=== PATIENT | male | born 1950 | race Caucasian/White ===

== ENCOUNTER 2017-03-19 12:45 | Emergency (ER) | payer MEDICARE, OTHER, SELFPAY ==
--- NOTE | 2017-03-19 13:15 | EDM.PDOC ---
ED HPI GENERAL MEDICAL PROBLEM - General Chief Complaint: General Stated Complaint: weakness Time Seen by Provider: 03/19/17 13:00 Source of Information: Reports: Patient, Family (sister) History Limitations: Reports: No Limitations - History of Present Illness INITIAL COMMENTS - FREE TEXT/NARRATIVE: States that he gets weak and shakey in his legs on and off since his stroke several years ago. States that he was in the kitchen and legs started to feel weak and he went to sit on the couch and then laid down. His housekeeper supervisor stopped by and called the ambulance. He states that it usually just passes over after a few hours. Has been in previously to be evaluated and nothing is ever found. He didn't take his meds last night as he forgot and hadn't taken them yet today. Currently he states that he feels good. Admits that his legs still feel shakey but doesn't feel that is unusaual. Onset: Gradual Location: Reports: Lower Extremity, Left, Lower Extremity, Right Associated Symptoms: Reports: Weakness - Related Data Allergies Allergy/AdvReac Type Severity Reaction Status Date / Time No Known Allergies Allergy Verified 03/19/17 12:55 Home Meds: Home Meds Brimonidine Tartrate [Alphagan P] 1 drop OP BID 01/11/14 [History] Clopidogrel [Plavix] 75 mg PO DAILY 01/11/14 [History] Cyanocobalamin (Vitamin B-12) [Vitamin B-12] 100 mcg PO DAILY 01/11/14 [History] Dorzolamide HCl/Timolol Maleat [Dorzolamide-Timolol Eye Drops] 1 drop OP BID [History] Latanoprost [Latanoprost] 1 drop OP BEDTIME 01/11/14 [History] Timolol Maleate [Timoptic 0.5% Ophth Soln] 1 drop EYEBOTH BID 01/11/14 [History] atorvaSTATin [Lipitor] 40 mg PO DAILY 01/11/14 [History] Cholecalciferol (Vitamin D3) [Vitamin D3] 5,000 unit PO DAILY 03/19/17 [History] Lisinopril 20 mg PO DAILY 03/19/17 [History] glipiZIDE [Glucotrol] 10 mg PO DAILY 03/19/17 [History] metFORMIN HCl [Metformin HCl] 1,000 mg PO DAILY 03/19/17 [History] Past Medical History HEENT History: Reports: Other (See Below) (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) Cardiovascular History: Reports: High Cholesterol, Hypertension Neurological History: Reports: CVA Endocrine/Metabolic History: Reports: Diabetes, Type II - Past Surgical History Cardiovascular Surgical History: Reports: Carotid Endarterectomy GI Surgical History: Reports: Appendectomy Social & Family History - Tobacco Use Smoking Status *Q: Current Every Day Smoker - Living Situation & Occupation Living situation: Reports: Single, Alone Occupation: Retired ED ROS GENERAL - Review of Systems Review Of Systems: See Below Constitutional: Reports: No Symptoms HEENT: Reports: Other (blind in left eye from stroke.) Respiratory: Denies: Shortness of Breath, Cough Cardiovascular: Denies: Chest Pain, Edema GI/Abdominal: Denies: Abdominal Pain, Constipation, Diarrhea Musculoskeletal: Reports: Other (leg weakness) Skin: Reports: No Symptoms Neurological: Reports: Difficulty Walking, Weakness. Denies: Confusion, Dizziness, Headache Psychiatric: Reports: No Symptoms ED EXAM, GENERAL - Physical Exam Exam: See Below Exam Limited By: No Limitations General Appearance: Alert, No Apparent Distress Eye Exam: Left Eye: Vision Changes (blind) Ears: Normal External Exam, Normal Canal, Normal TMs Nose: Normal Inspection Throat/Mouth: Normal Inspection, Normal Oropharynx, No Airway Compromise Head: Atraumatic, Normocephalic Neck: Normal Inspection, Supple, Non-Tender, Full Range of Motion Respiratory/Chest: No Respiratory Distress, Lungs Clear, Normal Breath Sounds Cardiovascular: Regular Rate, Rhythm, No Edema GI/Abdominal: Normal Bowel Sounds, Soft, Non-Tender Back Exam: Normal Inspection, Full Range of Motion Extremities: Normal Inspection, Normal Range of Motion, No Pedal Edema, Normal Capillary Refill Neurological: Alert, Oriented, Other (slight weakness noted to the left side which he states is left from his stroke.) Psychiatric: Normal Affect Skin Exam: Warm, Dry, Intact Course - Vital Signs Last Recorded V/S: Last Vital Signs Temp 98.3 F 03/19/17 14:02 Pulse 81 03/19/17 14:02 Resp 16 03/19/17 14:02 BP 146/74 H 03/19/17 14:02 Pulse Ox 97 03/19/17 14:02 - Orders/Labs/Meds Orders: Active Orders 24 hr Category Date Time Status Blood Glucose Check, Bedside [RC] ONETIME Care 03/19/17 13:13 Active UA W/MICROSCOPIC [URIN] Stat Lab 03/19/17 13:04 Uncollected Labs: Laboratory Tests 03/19/17 03/19/17 Range/Units 13:04 13:04 WBC 15.2 H (5.0-10.0) 10^3/uL RBC 4.61 (4.50-6.00) 10^6/uL Hgb 14.1 (14.0-18.0) g/dL Hct 40.2 (40.0-54.0) % MCV 87.2 (82.0-94.0) fL MCH 30.6 (27.0-32.0) pg MCHC 35.1 (33.0-38.0) g/dL RDW Coeff of Caryn 13.1 (11.0-15.0) % Plt Count 364 (150-400) 10^3/uL Neut % (Auto) 84.0 (35-85) % Lymph % (Auto) 11.1 (10-55) % [place] % (Auto) 4.5 (0-16) % Eos % (Auto) 0.2 (0-5) % Baso % (Auto) 0.2 (0-3) % Neut # (Auto) 12.74 H (1.80-7.00) 10^3/uL Lymph # (Auto) 1.69 (1.00-4.80) 10^3/uL [place] # (Auto) 0.69 (0.00-0.80) 10^3/uL Eos # (Auto) 0.03 (0.00-0.45) 10^3/uL Baso # (Auto) 0.03 10^3/uL Sodium 128 L (136-145) mEq/L Potassium 5.1 H (3.5-5.0) mEq/L Chloride 93 L (98-106) mEq/L Carbon Dioxide 28 (21-32) mmol/L BUN 10 (7-18) mg/dL Creatinine 0.9 (0.7-1.3) mg/dL Est Cr Clr Drug Dosing 78.56 mL/min Estimated GFR (MDRD) > 60 (>=60) mL/min Glucose 126 H (75-99) mg/dL Calcium 9.0 (8.4-10.1) mg/dL Total Bilirubin 0.9 (0.0-1.0) mg/dL AST 27 (15-37) U/L ALT 15 (12-78) U/L Alkaline Phosphatase 92 (46-116) U/L Lactate Dehydrogenase 196 H (100-190) U/L Creatine Kinase 648 H (35-232) U/L Troponin I < 0.017 (0.00-0.06) ng/mL C-Reactive Protein 5.2 H (0.2-0.8) mg/dL Total Protein 7.6 (6.4-8.2) g/dL Albumin 3.7 (3.4-5.0) g/dL Departure - Departure Time of Disposition: 14:12 Disposition: Home, Self-Care 01 Condition: Good Clinical Impression: Weakness, Hyponatremia - Discharge Information Forms: ED Department Discharge Additional Instructions: Eat more salty foods in the next few days. Rest more in the next few days Use cane when up If weakness is not slowly improving like it normally does then recheck in the clinic for further workup. Call if any concerns - Problem List & Annotations (1) Hyponatremia SNOMED Code(s): 60485047 Code(s): E87.1 - HYPO-OSMOLALITY AND HYPONATREMIA Status: Acute Priority : High (2) Weakness SNOMED Code(s): 52862757 Code(s): R53.1 - WEAKNESS Status: Acute Priority: High - Problem List Review Problem List Initiated/Reviewed/Updated: Yes - My Orders Last 24 Hours: My Active Orders 03/19/17 13:04 UA W/MICROSCOPIC [URIN] Stat 03/19/17 13:13 Blood Glucose Check, Bedside [RC] ONETIME - Assessment/Plan Last 24 Hours: My Active Orders 03/19/17 13:04 UA W/MICROSCOPIC [URIN] Stat 03/19/17 13:13 Blood Glucose Check, Bedside [RC] ONETIME
[2017-03-19 13:47] LABS: CHLORIDE,CL 93 mEq/L (98-106); SODIUM,NA 128 mEq/L (136-145)
[2017-03-19 14:03] VITALS: BP 146/74
== END 2017-03-19 14:28 | disposition home or self-care (01) ==
LOC: CC.ED 12:45
DX: E87.1 Hypo-osmolality and hyponatremia (principal); E78.00 Pure hypercholesterolemia, unspecified; I10 Essential (primary) hypertension; E11.9 Type 2 diabetes mellitus without complications; Z90.49 Acquired absence of other specified parts of digestive tract; Z98.890 Other specified postprocedural states; F17.210 Nicotine dependence, cigarettes, uncomplicated; Z79.899 Other long term (current) drug therapy; Z79.84 Long term (current) use of oral hypoglycemic drugs
CPT/HCPCS: 36415; 80053; 82550; 83615; 84484; 85025; 86140; 99285

== ENCOUNTER 2017-03-20 12:42 | Inpatient (IN) | payer MEDICARE, SELFPAY ==
[2017-03-20 14:15] LABS: CHLORIDE,CL 91 mEq/L (98-106); SODIUM,NA 125 mEq/L (136-145)
[2017-03-20] MEDS ORDERED: Acetaminophen 325 MG Tab PO PRN (14:42)
[2017-03-20] MEDS ORDERED: Docusate Sodium 100 MG Cap PO PRN (14:42)
[2017-03-20] MEDS ORDERED: cefTRIAXone 1 GM Vial IVPUSH ONE (15:00)
[2017-03-20] MEDS: Sodium Chloride 0.9% 1,000 ML IV SCH (15:37)
--- NOTE | 2017-03-20 15:43 | PCM.HP ---
H&P History of Present Illness - General Date of Service: 03/20/17 Admit Problem/Dx: Admission Diagnosis/Problem Admission Diagnosis/Problem Hyponatremia Source of Information: Patient, Family History Limitations: Reports: No Limitations - History of Present Illness Initial Comments - Free Text/Narative: Bart is a 66 yo male who presents to the ER via [facility] with concerns of ongoing weakness. Sister states he has been gradually getting weaker by the day. Has a previous history of stroke and has been shakey and weak off and on for several years now. He was brought into the ER yesterday with the same complaints. She admits she went over to his house this afternoon and he was sitting on the floor. Admits he was unable to get himself up. He had complete laboratory work completed yesterday minus urinalysis. WBC was mildly elevated with a left shift. Sodium was low at 128. Family doesn't feel he can care for himself at this time until something is figured out. Onset of Symptoms: Reports: Unknown/Unsure Location: Reports: Generalized - Related Data Allergies/Adverse Reactions: Allergies Allergy/AdvReac Type Severity Reaction Status Date / Time No Known Allergies Allergy Verified 03/20/17 14:17 Home Medications: Home Meds Brimonidine Tartrate [Alphagan P] 1 drop OP BID 01/11/14 [History] Clopidogrel [Plavix] 75 mg PO DAILY 01/11/14 [History] Cyanocobalamin (Vitamin B-12) [Vitamin B-12] 100 mcg PO DAILY 01/11/14 [History] Dorzolamide HCl/Timolol Maleat [Dorzolamide-Timolol Eye Drops] 1 drop OP BID [History] Latanoprost [Latanoprost] 1 drop OP BEDTIME 01/11/14 [History] Timolol Maleate [Timoptic 0.5% Ophth Soln] 1 drop EYEBOTH BID 01/11/14 [History] atorvaSTATin [Lipitor] 40 mg PO DAILY 01/11/14 [History] Cholecalciferol (Vitamin D3) [Vitamin D3] 5,000 unit PO DAILY 03/19/17 [History] Lisinopril 20 mg PO DAILY 03/19/17 [History] glipiZIDE [Glucotrol] 10 mg PO DAILY 03/19/17 [History] metFORMIN HCl [Metformin HCl] 1,000 mg PO DAILY 03/19/17 [History] Past Medical History HEENT History: Reports: Other (See Below) Other HEENT History: BLIND IN LEFT EYE Cardiovascular History: Reports: High Cholesterol, Hypertension Neurological History: Reports: CVA Endocrine/Metabolic History: Reports: Diabetes, Type II Other Endocrine/Metabolic History: VITAMIN B 12 DEFICIENCY - Past Surgical History Cardiovascular Surgical History: Reports: Carotid Endarterectomy GI Surgical History: Reports: Appendectomy Social & Family History - Tobacco Use Smoking Status *Q: Current Every Day Smoker Years of Tobacco use: 30 Packs/Tins Daily: 1 - Caffeine Use Caffeine Use: Reports: Coffee - Alcohol Use Days Per Week of Alcohol Use: 7 Number of Drinks Per Day: 8 Total Drinks Per Week: 56 - Recreational Drug Use Recreational Drug Use: No - Living Situation & Occupation Living situation: Reports: Single, Alone Occupation: Retired H&P Review of Systems - Review of Systems: Review Of Systems: See Below General: Reports: Chills, Weakness, Decreased Appetite. Denies: Fever HEENT: Reports: No Symptoms Pulmonary: Reports: No Symptoms. Denies: Shortness of Breath, Wheezing Cardiovascular: Reports: No Symptoms. Denies: Chest Pain, Orthopnea, Lightheadedness, Syncope Gastrointestinal: Denies: Abdominal Pain, Constipation, Diarrhea, Nausea, Vomiting Musculoskeletal: Reports: No Symptoms Skin: Reports: No Symptoms Psychiatric: Reports: No Symptoms Neurological: Reports: Difficulty Walking, Weakness. Denies: Headache, Numbness , Paresthesia, Syncope Exam - Exam Exam: See Below - Vital Signs Weight: 174 lb 6.4 oz - Exam General: Alert, Oriented, Cooperative HEENT: Conjunctiva Clear, Hearing Intact, Mucosa Moist & [place], Nares Patent, Normal Nasal Septum, TMs Clear Neck: Supple, Trachea Midline Lungs: Clear to Auscultation, Normal Respiratory Effort Cardiovascular: Regular Rate, Regular Rhythm. No: Systolic Murmur Abdomen: Normal Bowel Sounds, Soft. No: Guarding, Rigidity, Rebound, Absent Bowel Sounds, Hepatomegaly, Splenomegaly Back Exam: Normal Inspection, Full Range of Motion Extremities: Normal Inspection Peripheral Pulses: 1+: Dorsalis Pedis (L), Dorsalis Pedis (R) Skin: Warm, Dry, Intact Neuro Extensive - Mental Status: Alert, Normal Mood/Affect, Normal Cognition Psychiatric: Alert, Normal Affect, Normal Mood - Patient Data Lab Results Last 24 hrs: Laboratory Results - last 24 hr 03/20/17 03/20/17 Range/Units 13:44 13:44 WBC 13.7 H (5.0-10.0) 10^3/uL RBC 4.58 (4.50-6.00) 10^6/uL Hgb 14.0 (14.0-18.0) g/dL Hct 39.6 L (40.0-54.0) % MCV 86.5 (82.0-94.0) fL MCH 30.6 (27.0-32.0) pg MCHC 35.4 (33.0-38.0) g/dL RDW Coeff of Caryn 12.9 (11.0-15.0) % Plt Count 363 (150-400) 10^3/uL Neut % (Auto) 79.4 (35-85) % Lymph % (Auto) 13.6 (10-55) % [place] % (Auto) 6.1 (0-16) % Eos % (Auto) 0.7 (0-5) % Baso % (Auto) 0.2 (0-3) % Neut # (Auto) 10.88 H (1.80-7.00) 10^3/uL Lymph # (Auto) 1.86 (1.00-4.80) 10^3/uL [place] # (Auto) 0.84 H (0.00-0.80) 10^3/uL Eos # (Auto) 0.09 (0.00-0.45) 10^3/uL Baso # (Auto) 0.03 10^3/uL ESR 24 H (0-15) mm/hr Sodium 125 L (136-145) mEq/L Potassium 4.5 (3.5-5.0) mEq/L Chloride 91 L (98-106) mEq/L Carbon Dioxide 27 (21-32) mmol/L BUN 11 (7-18) mg/dL Creatinine 0.8 (0.7-1.3) mg/dL Est Cr Clr Drug Dosing 88.38 mL/min Estimated GFR (MDRD) > 60 (>=60) mL/min Glucose 108 H (75-99) mg/dL Calcium 8.9 (8.4-10.1) mg/dL Creatine Kinase 727 H (35-232) U/L Troponin I < 0.017 (0.00-0.06) ng/mL C-Reactive Protein 10.8 H (0.2-0.8) mg/dL Result Diagrams: 03/20/17 13:44 03/20/17 13:44 *Q Meaningful Use (ADM) - VTE *Q VTE Criteria *Q: - Stroke *Q Stroke Criteria *Q: - AMI *Q AMI Criteria *Q: - Problem List (1) Hyponatremia SNOMED Code(s): 35022532 ICD Code: E87.1 - HYPO-OSMOLALITY AND HYPONATREMIA Status: Acute Priority : High Current Visit: No (2) Weakness SNOMED Code(s): 94156594 ICD Code: R53.1 - WEAKNESS Status: Acute Priority: High Current Visit: No Problem List Initiated/Reviewed/Updated: Yes Orders Last 24hrs: Active Orders 24 hr Category Date Time Status Patient Status [ADT] Routine ADT 03/20/17 14:43 Active Blood Glucose Check, Bedside [RC] 0730,1730 Care 03/20/17 14:42 Active Oxygen Therapy [RC] .PRN Care 03/20/17 14:43 Active Up With Assistance [RC] ASDIRECTED Care 03/20/17 14:42 Active VTE/DVT Education [RC] PER UNIT ROUTINE Care 03/20/17 14:43 Active Vital Signs [RC] 0000,0800,1200,1600,2000 Care 03/20/17 14:43 Active PT Evaluation and Treatment [CONS] Routine Cons 03/20/17 14:42 Active Consistent Carbohydrate Diet [DIET] Diet 03/20/17 Dinner Active Abdomen Pelvis w Cont [CT] Routine Exams 03/21/17 10:00 Ordered Chest 2V [CR] Routine Exams 03/20/17 14:26 Taken Chest w Cont [CT] Routine Exams 03/21/17 10:00 Ordered BASIC METABOLIC PANEL,BMP [CHEM] DAILY Lab 03/21/17 07:00 Ordered BASIC METABOLIC PANEL,BMP [CHEM] DAILY Lab 03/22/17 07:00 Ordered BASIC METABOLIC PANEL,BMP [CHEM] DAILY Lab 03/23/17 07:00 Ordered CREATINE KINASE,CK [CHEM] DAILY Lab 03/21/17 07:00 Ordered CREATINE KINASE,CK [CHEM] DAILY Lab 03/22/17 07:00 Ordered CREATINE KINASE,CK [CHEM] DAILY Lab 03/23/17 07:00 Ordered MAGNESIUM [CHEM] AM Lab 03/21/17 05:11 Ordered UA W/MICROSCOPIC [URIN] Routine Lab 03/20/17 13:44 Uncollected Acetaminophen [Tylenol] Med 03/20/17 14:42 Active 650 mg PO Q4H PRN Brimonidine [Alphagan 0.2% Ophth Soln] Med 03/20/17 20:00 Active 0 ml EYEBOTH BID Clopidogrel [Plavix] Med 03/21/17 08:00 Active 75 mg PO DAILY Cyanocobalamin (Vitamin B12) [Vitamin B12] Med 03/21/17 08:00 Active 100 mcg PO DAILY Docusate Sodium [Colace] Med 03/20/17 14:42 Active 100 mg PO BID PRN Dorzolamide HCl/Timolol Maleat [Dorzolamide-Timolol Eye Med 03/20/17 20:00 Active Drops] 1 drop EYEBOTH BID Enoxaparin [Lovenox] Med 03/20/17 20:00 Active 40 mg SUBCUT Q24H Latanoprost [Xalatan 0.005% Ophth Soln] Med 03/20/17 20:00 Active 0 ml EYEBOTH BEDTIME Lisinopril [Prinivil] Med 03/21/17 08:00 Active 20 mg PO DAILY Sodium Chloride 0.9% [Normal Saline] 1,000 ml Med 03/20/17 14:45 Active IV ASDIRECTED Timolol Maleate [Timoptic 0.5% Ophth Soln] Med 03/20/17 20:00 Active 0 ml EYEBOTH BID atorvaSTATin [Lipitor] Med 03/21/17 08:00 Active 40 mg PO DAILY cefTRIAXone [Rocephin] Med 03/21/17 08:00 Active 1 gm IVPUSH Q24H glipiZIDE [Glucotrol] Med 03/21/17 08:00 Active 10 mg PO DAILY metFORMIN [Glucophage] Med 03/21/17 08:00 Active 1,000 mg PO DAILY Resuscitation Status Routine Resus Stat 03/20/17 14:42 Ordered Medication Orders Acetaminophen (Tylenol) 650 mg PO Q4H PRN PRN Reason: Pain (Mild 1-3)/fever Atorvastatin Calcium (Lipitor) 40 mg PO DAILY ANT Brimonidine Tartrate (Alphagan 0.2% Ophth Soln) 0 ml EYEBOTH BID [facility] Ceftriaxone Sodium (Rocephin) 1 gm IVPUSH Q24H [facility] Clopidogrel Bisulfate (Plavix) 75 mg PO DAILY [facility] Cyanocobalamin (Vitamin B12) 100 mcg PO DAILY [facility] Docusate Sodium (Colace) 100 mg PO BID PRN PRN Reason: Constipation Enoxaparin Sodium (Lovenox) 40 mg SUBCUT Q24H [facility] Glipizide (Glucotrol) 10 mg PO DAILY [facility] Sodium Chloride (Normal Saline) 1,000 mls @ 125 mls/hr IV ASDIRECTED [facility] Latanoprost (Xalatan 0.005% Ophth Soln) 0 ml EYEBOTH BEDTIME ANT Lisinopril (Prinivil) 20 mg PO DAILY [facility] Metformin HCl (Glucophage) 1,000 mg PO DAILY [facility] Ptom-[Dorzolamide- (Timolol Eye D) 1 drop EYEBOTH BID ANT Timolol Maleate (Timoptic 0.5% Ophth Soln) 0 ml EYEBOTH BID [facility] Assessment/Plan Comment:: Chest X-ray was stable. EKG showed NSR. WBC still mildly elevated today with an elevated CRP. CK level continues to be high. Will admit to Dr. Daniels's services under acute care. Will correct sodium which is lower at [address] chest, abdomen and pelvis ordered per Dr. Daniels. Will r/o polymyositis vs dermatomyositis as well. Dr. Daniels agreed with admission. Family verbalized understanding of current treatment plan.
[2017-03-20] MEDS: Timolol Maleate 0.5% Ophth Soln 5 ML Bottle EYEBOTH SCH (19:43)
[2017-03-20] MEDS: Latanoprost 0.005% Ophth Soln 2.5 ML Bottle EYEBOTH SCH (19:45)
[2017-03-20] MEDS: Brimonidine 0.2% Ophth Soln 5 ML Bottle EYEBOTH SCH (19:46)
[2017-03-20] MEDS: [UNRECOGNIZED DRUG - OTHER] EYEBOTH SCH (19:47)
[2017-03-20] MEDS: Enoxaparin 40 MG/0.4 ML Syringe SUBCUT SCH (19:47)
[2017-03-21] MEDS: Sodium Chloride 0.9% 1,000 ML IV SCH ×2 (00:09→17:45)
[2017-03-21] MEDS: cefTRIAXone 1 GM Vial IVPUSH SCH (07:25)
[2017-03-21 07:56] LABS: CHLORIDE,CL 97 mEq/L (98-106); SODIUM,NA 129 mEq/L (136-145)
[2017-03-21] MEDS ORDERED: metFORMIN 500 MG Tab PO SCH (08:00)
[2017-03-21] MEDS ORDERED: glipiZIDE 5 MG Tab.ER PO SCH (08:00)
[2017-03-21] MEDS ORDERED: Iopamidol 612 MG/ML 100 ML Bottle IVPUSH ONE (08:37)
[2017-03-21] MEDS: Brimonidine 0.2% Ophth Soln 5 ML Bottle EYEBOTH SCH ×2 (09:57→19:54)
[2017-03-21] MEDS: atorvaSTATin 20 MG Tab PO SCH (09:58)
[2017-03-21] MEDS: Clopidogrel 75 MG Tab PO SCH (09:58)
[2017-03-21] MEDS: Lisinopril 20 MG Tab PO SCH (09:58)
[2017-03-21] MEDS: glipiZIDE 5 MG Tab PO SCH (09:58)
[2017-03-21] MEDS: Cyanocobalamin (Vitamin B12) 100 MCG Tab PO SCH (09:58)
[2017-03-21] MEDS: Timolol Maleate 0.5% Ophth Soln 5 ML Bottle EYEBOTH SCH ×2 (09:59→19:55)
[2017-03-21] MEDS: [UNRECOGNIZED DRUG - OTHER] EYEBOTH SCH ×2 (09:59→19:54)
--- NOTE | 2017-03-21 13:03 | PCM.PN ---
- General Info Date of Service: 03/21/17 (Patient lying in bed watching TV. Denies any discomfrot, or SOB at this time. BBS, wheezing noted throughout, rhonchi noted in lower lumg bases. CT shows opacity in right upper lobe, WBC High will start Levaquin and check D-dimer to rule out PE. Has pancreatic mass that will need further evaluation as well) Admission Dx/Problem (Free Text): Generalized weakness and hyponatremia Functional Status: Reports: pain controlled - Review of Systems General: Reports: No Symptoms HEENT: Reports: no symptoms Pulmonary: Reports: no symptoms Cardiovascular: Reports: No Symptoms Gastrointestinal: Reports: No symptoms Musculoskeletal: Reports: no symptoms Skin: Reports: no symptoms Neurological: Reports: No Symptoms Psychiatric: Reports: no symptoms (Lab work is improved for hyonatremia. Will order Ct of pancreas specific for mass. ) - Patient Data Vitals - most recent: Last Vital Signs Temp 96.9 F 03/21/17 08:00 Pulse 58 L 03/21/17 08:00 Resp 16 03/21/17 08:00 BP 155/74 H 03/21/17 09:58 Pulse Ox 96 03/21/17 08:00 Weight - most recent: 174 lb 6.4 oz I&O - last 24 hours: Intake & Output 03/20/17 03/21/17 03/21/17 22:59 06:59 14:59 Intake Total 1000 Balance 1000 Lab Results last 24 hrs: Laboratory Results - last 24 hr 03/20/17 03/20/17 03/20/17 Range/Units 13:44 13:44 13:44 WBC 13.7 H (5.0-10.0) 10^3/uL RBC 4.58 (4.50-6.00) 10^6/uL Hgb 14.0 (14.0-18.0) g/dL Hct 39.6 L (40.0-54.0) % MCV 86.5 (82.0-94.0) fL MCH 30.6 (27.0-32.0) pg MCHC 35.4 (33.0-38.0) g/dL RDW Coeff of Caryn 12.9 (11.0-15.0) % Plt Count 363 (150-400) 10^3/uL Neut % (Auto) 79.4 (35-85) % Lymph % (Auto) 13.6 (10-55) % [place] % (Auto) 6.1 (0-16) % Eos % (Auto) 0.7 (0-5) % Baso % (Auto) 0.2 (0-3) % Neut # (Auto) 10.88 H (1.80-7.00) 10^3/uL Lymph # (Auto) 1.86 (1.00-4.80) 10^3/uL [place] # (Auto) 0.84 H (0.00-0.80) 10^3/uL Eos # (Auto) 0.09 (0.00-0.45) 10^3/uL Baso # (Auto) 0.03 10^3/uL ESR 24 H (0-15) mm/hr Sodium 125 L (136-145) mEq/L Potassium 4.5 (3.5-5.0) mEq/L Chloride 91 L (98-106) mEq/L Carbon Dioxide 27 (21-32) mmol/L BUN 11 (7-18) mg/dL Creatinine 0.8 (0.7-1.3) mg/dL Est Cr Clr Drug Dosing 88.38 mL/min Estimated GFR (MDRD) > 60 (>=60) mL/min Glucose 108 H (75-99) mg/dL POC Glucose (75-105) mg/dl Calcium 8.9 (8.4-10.1) mg/dL Magnesium (1.8-2.4) mg/dL Creatine Kinase 727 H (35-232) U/L Troponin I < 0.017 (0.00-0.06) ng/mL C-Reactive Protein 10.8 H (0.2-0.8) mg/dL Urine Color Yellow (YELLOW) Urine Appearance Clear (CLEAR) Urine pH 6.0 (4.5-8.0) Ur Specific [place] 1.013 (1.003-1.020) Urine Protein 30 H (NEGATIVE) mg/dL Urine Glucose (UA) Negative (NEGATIVE) mg/dL Urine Ketones 40 H (NEGATIVE) mg/dL Urine Occult Blood Trace-lysed H (NEGATIVE) Urine Nitrite Negative (NEGATIVE) Urine Bilirubin Negative (NEGATIVE) Urine Urobilinogen 0.2 (0.2-1.0) EU/dL Ur Leukocyte Esterase Negative (NEGATIVE) Urine RBC Not seen (0-5) /HPF Urine WBC Not seen (0-5) /HPF Ur Squamous Epith Cells Occasional H (NOT SEEN) /HPF 03/20/17 03/21/17 03/21/17 Range/Units 17:17 07:15 07:17 WBC (5.0-10.0) 10^3/uL RBC (4.50-6.00) 10^6/uL Hgb (14.0-18.0) g/dL Hct (40.0-54.0) % MCV (82.0-94.0) fL MCH (27.0-32.0) pg MCHC (33.0-38.0) g/dL RDW Coeff of Caryn (11.0-15.0) % Plt Count (150-400) 10^3/uL Neut % (Auto) (35-85) % Lymph % (Auto) (10-55) % [place] % (Auto) (0-16) % Eos % (Auto) (0-5) % Baso % (Auto) (0-3) % Neut # (Auto) (1.80-7.00) 10^3/uL Lymph # (Auto) (1.00-4.80) 10^3/uL [place] # (Auto) (0.00-0.80) 10^3/uL Eos # (Auto) (0.00-0.45) 10^3/uL Baso # (Auto) 10^3/uL ESR (0-15) mm/hr Sodium 129 L (136-145) mEq/L Potassium 4.5 (3.5-5.0) mEq/L Chloride 97 L (98-106) mEq/L Carbon Dioxide 24 (21-32) mmol/L BUN 7 (7-18) mg/dL Creatinine 0.7 (0.7-1.3) mg/dL Est Cr Clr Drug Dosing 101.00 mL/min Estimated GFR (MDRD) > 60 (>=60) mL/min Glucose 102 H (75-99) mg/dL POC Glucose 103 95 (75-105) mg/dl Calcium 8.1 L (8.4-10.1) mg/dL Magnesium 1.8 (1.8-2.4) mg/dL Creatine Kinase 353 H (35-232) U/L Troponin I (0.00-0.06) ng/mL C-Reactive Protein (0.2-0.8) mg/dL Urine Color (YELLOW) Urine Appearance (CLEAR) Urine pH (4.5-8.0) Ur Specific [place] (1.003-1.020) Urine Protein (NEGATIVE) mg/dL Urine Glucose (UA) (NEGATIVE) mg/dL Urine Ketones (NEGATIVE) mg/dL Urine Occult Blood (NEGATIVE) Urine Nitrite (NEGATIVE) Urine Bilirubin (NEGATIVE) Urine Urobilinogen (0.2-1.0) EU/dL Ur Leukocyte Esterase (NEGATIVE) Urine RBC (0-5) /HPF Urine WBC (0-5) /HPF Ur Squamous Epith Cells (NOT SEEN) /HPF 03/21/17 Range/Units 11:42 WBC (5.0-10.0) 10^3/uL RBC (4.50-6.00) 10^6/uL Hgb (14.0-18.0) g/dL Hct (40.0-54.0) % MCV (82.0-94.0) fL MCH (27.0-32.0) pg MCHC (33.0-38.0) g/dL RDW Coeff of Caryn (11.0-15.0) % Plt Count (150-400) 10^3/uL Neut % (Auto) (35-85) % Lymph % (Auto) (10-55) % [place] % (Auto) (0-16) % Eos % (Auto) (0-5) % Baso % (Auto) (0-3) % Neut # (Auto) (1.80-7.00) 10^3/uL Lymph # (Auto) (1.00-4.80) 10^3/uL [place] # (Auto) (0.00-0.80) 10^3/uL Eos # (Auto) (0.00-0.45) 10^3/uL Baso # (Auto) 10^3/uL ESR (0-15) mm/hr Sodium (136-145) mEq/L Potassium (3.5-5.0) mEq/L Chloride (98-106) mEq/L Carbon Dioxide (21-32) mmol/L BUN (7-18) mg/dL Creatinine (0.7-1.3) mg/dL Est Cr Clr Drug Dosing mL/min Estimated GFR (MDRD) (>=60) mL/min Glucose (75-99) mg/dL POC Glucose 124 H (75-105) mg/dl Calcium (8.4-10.1) mg/dL Magnesium (1.8-2.4) mg/dL Creatine Kinase (35-232) U/L Troponin I (0.00-0.06) ng/mL C-Reactive Protein (0.2-0.8) mg/dL Urine Color (YELLOW) Urine Appearance (CLEAR) Urine pH (4.5-8.0) Ur Specific [place] (1.003-1.020) Urine Protein (NEGATIVE) mg/dL Urine Glucose (UA) (NEGATIVE) mg/dL Urine Ketones (NEGATIVE) mg/dL Urine Occult Blood (NEGATIVE) Urine Nitrite (NEGATIVE) Urine Bilirubin (NEGATIVE) Urine Urobilinogen (0.2-1.0) EU/dL Ur Leukocyte Esterase (NEGATIVE) Urine RBC (0-5) /HPF Urine WBC (0-5) /HPF Ur Squamous Epith Cells (NOT SEEN) /HPF Med Orders - Current: Current Medications Acetaminophen (Tylenol) 650 mg PO Q4H PRN PRN Reason: Pain (Mild 1-3)/fever Albuterol/Ipratropium (Duoneb 3.0-0.5 Mg/3 Ml) 3 ml NEB TIDRT [facility] Atorvastatin Calcium (Lipitor) 40 mg PO DAILY [facility] Last Admin: 03/21/17 09:58 Dose: 40 mg Brimonidine Tartrate (Alphagan 0.2% Ophth Soln) 0 ml EYEBOTH BID [facility] Last Admin: 03/21/17 09:57 Dose: 1 drop Ceftriaxone Sodium (Rocephin) 1 gm IVPUSH Q24H [facility] Last Admin: 03/21/17 07:25 Dose: 1 gm Clopidogrel Bisulfate (Plavix) 75 mg PO DAILY [facility] Last Admin: 03/21/17 09:58 Dose: 75 mg Cyanocobalamin (Vitamin B12) 100 mcg PO DAILY [facility] Last Admin: 03/21/17 09:58 Dose: 100 mcg Docusate Sodium (Colace) 100 mg PO BID PRN PRN Reason: Constipation Enoxaparin Sodium (Lovenox) 40 mg SUBCUT Q24H [facility] Last Admin: 03/20/17 19:47 Dose: 40 mg Glipizide (Glucotrol) 10 mg PO DAILY [facility] Last Admin: 03/21/17 09:58 Dose: 10 mg Sodium Chloride (Normal Saline) 1,000 mls @ 125 mls/hr IV ASDIRECTED [facility] Last Admin: 03/21/17 00:09 Dose: 125 mls/hr Levofloxacin/Dextrose 500 mg/ (Premix) 100 mls @ 100 mls/hr IV Q24H [facility] Latanoprost (Xalatan 0.005% Ophth Soln) 0 ml EYEBOTH BEDTIME [facility] Last Admin: 03/20/17 19:45 Dose: 1 drop Lisinopril (Prinivil) 20 mg PO DAILY [facility] Last Admin: 03/21/17 09:58 Dose: 20 mg Metformin HCl (Glucophage) 1,000 mg PO DAILY [facility] Ptom-[Dorzolamide- (Timolol Eye D) 1 drop EYEBOTH BID [facility] Last Admin: 03/21/17 09:59 Dose: 1 drop Timolol Maleate (Timoptic 0.5% Ophth Soln) 0 ml EYEBOTH BID [facility] Last Admin: 03/21/17 09:59 Dose: 1 drop Discontinued Medications Ceftriaxone Sodium (Rocephin) 1 gm IVPUSH ONETIME ONE Stop: 03/20/17 15:01 Last Admin: 03/20/17 15:38 Dose: 1 gm Iopamidol (Isovue-300 (61%)) 100 ml IVPUSH ONETIME ONE Stop: 03/21/17 08:38 Last Admin: 03/21/17 09:25 Dose: 100 ml - Problem List Review Problem List Initiated/Reviewed/Updated: Yes - My Orders Last 24 Hours: My Active Orders 03/21/17 12:56 RT Aerosol Therapy [RC] ASDIRECTED 03/21/17 13:00 Levofloxacin/Dextrose 5%-Water [Levaquin in D5W 500 MG/100 ML] 500 mg Premix Bag 1 bag IV Q24H 03/21/17 14:00 Albuterol/Ipratropium [DuoNeb 3.0-0.5 MG/3 ML] 3 ml NEB TIDRT 03/22/17 07:00 CBC WITH AUTO DIFF [HEME] Routine CMP [COMPREHENSIVE METABOLIC PN,CMP] [CHEM] Routine - Plan Plan:: Chest X-ray was stable. EKG showed NSR. WBC still mildly elevated today with an elevated CRP. CK level continues to be high. Will admit to Dr. Daniels's services under acute care. Will correct sodium which is lower at [address] chest, abdomen and pelvis ordered per Dr. Daniels. Will r/o polymyositis vs dermatomyositis as well. Dr. Daniels agreed with admission. Family verbalized understanding of current treatment plan.
[2017-03-21] MEDS: Albuterol/Ipratropium 3.0-0.5 MG/3 ML Neb Soln NEB SCH ×2 (13:32→20:57)
[2017-03-21] MEDS: Levofloxacin/Dextrose 5%-Water 500 MG in Premix Bag 1 BAG IV SCH (13:33)
[2017-03-21] MEDS: Latanoprost 0.005% Ophth Soln 2.5 ML Bottle EYEBOTH SCH (19:55)
[2017-03-21] MEDS: Enoxaparin 40 MG/0.4 ML Syringe SUBCUT SCH (19:56)
[2017-03-22] MEDS: Sodium Chloride 0.9% 1,000 ML IV SCH ×3 (01:45→19:50)
[2017-03-22] MEDS: cefTRIAXone 1 GM Vial IVPUSH SCH (08:35)
[2017-03-22] MEDS: Brimonidine 0.2% Ophth Soln 5 ML Bottle EYEBOTH SCH ×2 (09:02→19:47)
[2017-03-22] MEDS: Cyanocobalamin (Vitamin B12) 100 MCG Tab PO SCH (09:02)
[2017-03-22] MEDS: Clopidogrel 75 MG Tab PO SCH (09:02)
[2017-03-22] MEDS: glipiZIDE 5 MG Tab PO SCH (09:02)
[2017-03-22] MEDS: atorvaSTATin 20 MG Tab PO SCH (09:02)
[2017-03-22] MEDS: [UNRECOGNIZED DRUG - OTHER] EYEBOTH SCH ×2 (09:02→19:47)
[2017-03-22] MEDS: Lisinopril 20 MG Tab PO SCH (09:02)
[2017-03-22] MEDS: Albuterol/Ipratropium 3.0-0.5 MG/3 ML Neb Soln NEB SCH ×3 (09:03→21:47)
[2017-03-22] MEDS: Timolol Maleate 0.5% Ophth Soln 5 ML Bottle EYEBOTH SCH ×2 (09:03→19:47)
[2017-03-22 09:09] LABS: CHLORIDE,CL 98 mEq/L (98-106); SODIUM,NA 129 mEq/L (136-145)
--- NOTE | 2017-03-22 11:25 | PCM.PN ---
- General Info Date of Service: 03/22/17 Admission Dx/Problem (Free Text): Patient is sitting up in a chair reading. States he feels much better today, Denies any pain or sob at this time. Spoke at length with the patient about repeating an abdominal CT in the AM to determine the nature of a mass on his pancreas. No distress noted. Functional Status: Reports: pain controlled - Review of Systems General: Reports: No Symptoms Pulmonary: Reports: no symptoms Cardiovascular: Reports: No Symptoms Genitourinary: Reports: no symptoms Musculoskeletal: Reports: no symptoms Skin: Reports: no symptoms Neurological: Reports: No Symptoms Psychiatric: Reports: no symptoms - Patient Data Vitals - most recent: Last Vital Signs Temp 96.7 F 03/22/17 08:00 Pulse 62 03/22/17 08:00 Resp 16 03/22/17 08:00 BP 139/71 03/22/17 09:02 Pulse Ox 96 03/22/17 08:00 Weight - most recent: 174 lb 6.4 oz I&O - last 24 hours: Intake & Output 03/21/17 03/22/17 03/22/17 22:59 06:59 14:59 Intake Total 200 1000 1000 Balance 200 1000 1000 Lab Results last 24 hrs: Laboratory Results - last 24 hr 03/21/17 03/21/17 03/22/17 Range/Units 11:42 17:04 07:00 WBC (5.0-10.0) 10^3/uL RBC (4.50-6.00) 10^6/uL Hgb (14.0-18.0) g/dL Hct (40.0-54.0) % MCV (82.0-94.0) fL MCH (27.0-32.0) pg MCHC (33.0-38.0) g/dL RDW Coeff of Caryn (11.0-15.0) % Plt Count (150-400) 10^3/uL Neut % (Auto) (35-85) % Lymph % (Auto) (10-55) % [place] % (Auto) (0-16) % Eos % (Auto) (0-5) % Baso % (Auto) (0-3) % Neut # (Auto) (1.80-7.00) 10^3/uL Lymph # (Auto) (1.00-4.80) 10^3/uL [place] # (Auto) (0.00-0.80) 10^3/uL Eos # (Auto) (0.00-0.45) 10^3/uL Baso # (Auto) 10^3/uL D-Dimer, Quantitative (0.00-0.50) Sodium 129 L (136-145) mEq/L Potassium 4.4 (3.5-5.0) mEq/L Chloride 98 (98-106) mEq/L Carbon Dioxide 25 (21-32) mmol/L BUN 4 L (7-18) mg/dL Creatinine 0.6 L (0.7-1.3) mg/dL Est Cr Clr Drug Dosing 117.83 mL/min Estimated GFR (MDRD) > 60 (>=60) mL/min Glucose 107 H (75-99) mg/dL POC Glucose 124 H 101 (75-105) mg/dl Calcium 8.0 L (8.4-10.1) mg/dL Total Bilirubin 0.5 (0.0-1.0) mg/dL AST 26 (15-37) U/L ALT 27 (12-78) U/L Alkaline Phosphatase 70 (46-116) U/L Creatine Kinase 201 (35-232) U/L Total Protein 6.3 L (6.4-8.2) g/dL Albumin 2.9 L (3.4-5.0) g/dL 03/22/17 03/22/17 03/22/17 Range/Units 07:00 07:20 07:49 WBC 10.3 H (5.0-10.0) 10^3/uL RBC 4.02 L (4.50-6.00) 10^6/uL Hgb 12.4 L (14.0-18.0) g/dL Hct 35.7 L (40.0-54.0) % MCV 88.8 (82.0-94.0) fL MCH 30.8 (27.0-32.0) pg MCHC 34.7 (33.0-38.0) g/dL RDW Coeff of Caryn 12.8 (11.0-15.0) % Plt Count 345 (150-400) 10^3/uL Neut % (Auto) 74.3 (35-85) % Lymph % (Auto) 18.3 (10-55) % [place] % (Auto) 6.4 (0-16) % Eos % (Auto) 0.7 (0-5) % Baso % (Auto) 0.3 (0-3) % Neut # (Auto) 7.67 H (1.80-7.00) 10^3/uL Lymph # (Auto) 1.89 (1.00-4.80) 10^3/uL [place] # (Auto) 0.66 (0.00-0.80) 10^3/uL Eos # (Auto) 0.07 (0.00-0.45) 10^3/uL Baso # (Auto) 0.03 10^3/uL D-Dimer, Quantitative 1.12 H (0.00-0.50) Sodium (136-145) mEq/L Potassium (3.5-5.0) mEq/L Chloride (98-106) mEq/L Carbon Dioxide (21-32) mmol/L BUN (7-18) mg/dL Creatinine (0.7-1.3) mg/dL Est Cr Clr Drug Dosing mL/min Estimated GFR (MDRD) (>=60) mL/min Glucose (75-99) mg/dL POC Glucose 118 H (75-105) mg/dl Calcium (8.4-10.1) mg/dL Total Bilirubin (0.0-1.0) mg/dL AST (15-37) U/L ALT (12-78) U/L Alkaline Phosphatase (46-116) U/L Creatine Kinase (35-232) U/L Total Protein (6.4-8.2) g/dL Albumin (3.4-5.0) g/dL Med Orders - Current: Current Medications Acetaminophen (Tylenol) 650 mg PO Q4H PRN PRN Reason: Pain (Mild 1-3)/fever Albuterol/Ipratropium (Duoneb 3.0-0.5 Mg/3 Ml) 3 ml NEB TIDRT [facility] Last Admin: 03/22/17 09:03 Dose: 3 ml Atorvastatin Calcium (Lipitor) 40 mg PO DAILY [facility] Last Admin: 03/22/17 09:02 Dose: 40 mg Brimonidine Tartrate (Alphagan 0.2% Ophth Soln) 0 ml EYEBOTH BID [facility] Last Admin: 03/22/17 09:02 Dose: 1 drop Ceftriaxone Sodium (Rocephin) 1 gm IVPUSH Q24H [facility] Last Admin: 03/22/17 08:35 Dose: 1 gm Clopidogrel Bisulfate (Plavix) 75 mg PO DAILY [facility] Last Admin: 03/22/17 09:02 Dose: 75 mg Cyanocobalamin (Vitamin B12) 100 mcg PO DAILY [facility] Last Admin: 03/22/17 09:02 Dose: 100 mcg Docusate Sodium (Colace) 100 mg PO BID PRN PRN Reason: Constipation Enoxaparin Sodium (Lovenox) 40 mg SUBCUT Q24H [facility] Last Admin: 03/21/17 19:56 Dose: 40 mg Glipizide (Glucotrol) 10 mg PO DAILY [facility] Last Admin: 03/22/17 09:02 Dose: 10 mg Sodium Chloride (Normal Saline) 1,000 mls @ 125 mls/hr IV ASDIRECTED [facility] Last Admin: 03/22/17 10:44 Dose: 125 mls/hr Levofloxacin/Dextrose 500 mg/ (Premix) 100 mls @ 100 mls/hr IV Q24H [facility] Last Admin: 03/21/17 13:33 Dose: 100 mls/hr Latanoprost (Xalatan 0.005% Ophth Soln) 0 ml EYEBOTH BEDTIME [facility] Last Admin: 03/21/17 19:55 Dose: 1 drop Lisinopril (Prinivil) 20 mg PO DAILY [facility] Last Admin: 03/22/17 09:02 Dose: 20 mg Metformin HCl (Glucophage) 1,000 mg PO DAILY [facility] Ptom-[Dorzolamide- (Timolol Eye D) 1 drop EYEBOTH BID [facility] Last Admin: 03/22/17 09:02 Dose: 1 drop Timolol Maleate (Timoptic 0.5% Ophth Soln) 0 ml EYEBOTH BID [facility] Last Admin: 03/22/17 09:03 Dose: 1 drop Discontinued Medications Ceftriaxone Sodium (Rocephin) 1 gm IVPUSH ONETIME ONE Stop: 03/20/17 15:01 Last Admin: 03/20/17 15:38 Dose: 1 gm Iopamidol (Isovue-300 (61%)) 100 ml IVPUSH ONETIME ONE Stop: 03/21/17 08:38 Last Admin: 03/21/17 09:25 Dose: 100 ml - Problem List Review Problem List Initiated/Reviewed/Updated: Yes - My Orders Last 24 Hours: My Active Orders 03/21/17 12:56 RT Aerosol Therapy [RC] 0900,1400,2100 03/21/17 13:00 Levofloxacin/Dextrose 5%-Water [Levaquin in D5W 500 MG/100 ML] 500 mg Premix Bag 1 bag IV Q24H 03/21/17 14:00 Albuterol/Ipratropium [DuoNeb 3.0-0.5 MG/3 ML] 3 ml NEB TIDRT 03/23/17 09:00 Abdomen Pelvis w wo Cont [CT] Routine - Plan Plan:: Chest X-ray was stable. EKG showed NSR. WBC still mildly elevated today with an elevated CRP. CK level continues to be high. Will admit to Dr. Daniels's services under acute care. Will correct sodium which is lower at [address] chest, abdomen and pelvis ordered per Dr. Daniels. Will r/o polymyositis vs dermatomyositis as well. Dr. Daniels agreed with admission. Family verbalized understanding of current treatment plan.
[2017-03-22] MEDS: Levofloxacin/Dextrose 5%-Water 500 MG in Premix Bag 1 BAG IV SCH (13:55)
[2017-03-22] MEDS: Latanoprost 0.005% Ophth Soln 2.5 ML Bottle EYEBOTH SCH (19:48)
[2017-03-22] MEDS: Enoxaparin 40 MG/0.4 ML Syringe SUBCUT SCH (19:48)
[2017-03-23] MEDS: Sodium Chloride 0.9% 1,000 ML IV SCH ×2 (03:46→12:20)
[2017-03-23] MEDS ORDERED: Iopamidol 612 MG/ML 100 ML Bottle IVPUSH ONE (07:08)
[2017-03-23 08:17] LABS: CHLORIDE,CL 97 mEq/L (98-106); SODIUM,NA 131 mEq/L (136-145)
[2017-03-23] MEDS ORDERED: Iopamidol 755 Mg/ML 100 ML Bottle IVPUSH ONE ×2 (08:27→09:21)
[2017-03-23] MEDS: Brimonidine 0.2% Ophth Soln 5 ML Bottle EYEBOTH SCH ×2 (08:48→20:54)
[2017-03-23] MEDS: Clopidogrel 75 MG Tab PO SCH (08:50)
[2017-03-23] MEDS: Cyanocobalamin (Vitamin B12) 100 MCG Tab PO SCH (08:50)
[2017-03-23] MEDS: Lisinopril 20 MG Tab PO SCH (08:50)
[2017-03-23] MEDS: Timolol Maleate 0.5% Ophth Soln 5 ML Bottle EYEBOTH SCH ×2 (08:51→20:54)
[2017-03-23] MEDS: [UNRECOGNIZED DRUG - OTHER] EYEBOTH SCH ×2 (08:51→20:54)
[2017-03-23] MEDS: atorvaSTATin 20 MG Tab PO SCH (08:51)
[2017-03-23] MEDS: glipiZIDE 5 MG Tab PO SCH (08:51)
[2017-03-23] MEDS: cefTRIAXone 1 GM Vial IVPUSH SCH (09:16)
--- NOTE | 2017-03-23 10:23 | PN ---
DATE: 03/23/2017 S: Bart Gastelum came in with a bronchiolitis, confusion. Apparently, CT scan of the chest and abdomen showed a pancreatic lesion. I do not know if he has had a CT of the head. O: GENERAL: The patient is somewhat confused today. NECK: Otherwise, neck is supple. CHEST: Expiratory wheezing. CARDIAC: Sounds are distant. EXTREMITIES: No edema. ASSESSMENT: BRONCHIOLITIS, CONFUSION, PROBABLY FROM ALCOHOL, WERNICKE ENCEPHALOPATHY, BUT THEY HAVE A CT OF HIS HEAD. I WILL GO FROM THERE. COSMO/GUILLAUME /[id number]
[2017-03-23] MEDS: Albuterol/Ipratropium 3.0-0.5 MG/3 ML Neb Soln NEB SCH ×3 (10:38→20:56)
[2017-03-23] MEDS ORDERED: Sodium Chloride 0.9% 10 ML Syringe FLUSH PRN (12:39)
[2017-03-23] MEDS ORDERED: Levofloxacin/Dextrose 5%-Water 500 MG in Premix Bag 1 BAG IV SCH (20:00)
[2017-03-23] MEDS: Latanoprost 0.005% Ophth Soln 2.5 ML Bottle EYEBOTH SCH (20:54)
[2017-03-23] MEDS: Enoxaparin 40 MG/0.4 ML Syringe SUBCUT SCH (20:54)
[2017-03-24] MEDS: Brimonidine 0.2% Ophth Soln 5 ML Bottle EYEBOTH SCH (07:35)
[2017-03-24] MEDS: cefTRIAXone 1 GM Vial IVPUSH SCH (07:36)
[2017-03-24] MEDS: [UNRECOGNIZED DRUG - OTHER] EYEBOTH SCH (07:43)
[2017-03-24] MEDS: glipiZIDE 5 MG Tab PO SCH (07:44)
[2017-03-24] MEDS: Lisinopril 20 MG Tab PO SCH (07:45)
[2017-03-24] MEDS: Clopidogrel 75 MG Tab PO SCH (07:45)
[2017-03-24] MEDS: atorvaSTATin 20 MG Tab PO SCH (07:45)
[2017-03-24] MEDS: Cyanocobalamin (Vitamin B12) 100 MCG Tab PO SCH (07:46)
[2017-03-24 08:11] VITALS: BP 154/78
[2017-03-24 09:09] LABS: CHLORIDE,CL 92 mEq/L (98-106); SODIUM,NA 126 mEq/L (136-145)
[2017-03-24] MEDS: Albuterol/Ipratropium 3.0-0.5 MG/3 ML Neb Soln NEB SCH (09:23)
[2017-03-24] MEDS: Timolol Maleate 0.5% Ophth Soln 5 ML Bottle EYEBOTH SCH (09:23)
--- NOTE | 2017-03-25 07:32 | DISCH ---
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 At the time of discharge to swing bed, he was unable to ambulate, but chest with distant occasional wheeze. Cardiac sounds were good. I did do a CTA of his chest, no pulmonary emboli. CT of the brain showed no acute changes. Due to the fact he is difficult to ambulate, we were considering swing bed, which the family is in agreement. LABORATORY DATA: Lab here in the hospital, CBC looks good. D-dimer mildly elevated at 1.12 from the infection. He was hyponatremic with a sodium of 125 that is up to 131. Blood sugars fairly stable. C-reactive protein elevated at 10.8. Repeat that today. Urinalysis proteinuria. DISPOSITION: The patient is now discharged to swing bed, physical therapy, continue IV antibiotics. DISCHARGE MEDICATIONS: Hospital medications. DISCHARGE DIAGNOSIS: 1. BRONCHIOLITIS. 2. DIABETES MELLITUS. 3. DEMENTIA. 4. HYPERLIPIDEMIA. 5. HYPERTENSION. SIMÓN /[id number]
== END 2017-03-24 10:20 | disposition swing bed (61) | DRG 641 ==
LOC: CC.MS 13:25 → UNDOADMIN 13:25 → CC.MS 14:43
PROVIDERS: ADMIT General Practice; ATTEND General Practice
DX: E87.1 Hypo-osmolality and hyponatremia (principal); J21.9 Acute bronchiolitis, unspecified; E51.2 Wernicke's encephalopathy; R53.1 Weakness; F10.97 Alcohol use, unspecified with alcohol-induced persisting dementia; I10 Essential (primary) hypertension; E78.00 Pure hypercholesterolemia, unspecified; Z86.73 Personal history of transient ischemic attack (TIA), and cerebral infarction without residual deficits; E11.9 Type 2 diabetes mellitus without complications; Z79.84 Long term (current) use of oral hypoglycemic drugs; E53.8 Deficiency of other specified B group vitamins; Z79.899 Other long term (current) drug therapy; F17.200 Nicotine dependence, unspecified, uncomplicated; E78.5 Hyperlipidemia, unspecified
CPT/HCPCS: 36415; 51701; 70450; 71020; 71260; 71275; 74177; 80048; 80053; 81001; 82550; 82962; 83735; 84484; 85025; 85379; 85651; 86140; 93005; 94640; 94640-76; 94644; 97110-GP; 97161-GP; A9270-GY; J0696; J1650; J1956; J7030; Q9967

== ENCOUNTER 2017-03-24 10:23 | Inpatient (IN) | payer MEDICARE, OTHER ==
[2017-03-24] MEDS ORDERED: Sodium Chloride 0.9% 10 ML Syringe FLUSH PRN (10:47)
[2017-03-24] MEDS ORDERED: Acetaminophen 325 MG Tab PO PRN (10:47)
[2017-03-24] MEDS ORDERED: Docusate Sodium 100 MG Cap PO PRN (10:47)
[2017-03-24] MEDS ORDERED: Magnesium Sulfate/D5W 2 GM in Premix Bag 1 BAG IV ONE (11:34)
[2017-03-24] MEDS: Albuterol/Ipratropium 3.0-0.5 MG/3 ML Neb Soln NEB SCH ×2 (14:21→21:30)
[2017-03-24] MEDS: Enoxaparin 40 MG/0.4 ML Syringe SUBCUT SCH (19:42)
[2017-03-24] MEDS: Brimonidine 0.2% Ophth Soln 5 ML Bottle EYEBOTH SCH (19:42)
[2017-03-24] MEDS: Timolol Maleate 0.5% Ophth Soln 5 ML Bottle EYEBOTH SCH (19:43)
[2017-03-24] MEDS: Levofloxacin/Dextrose 5%-Water 500 MG in Premix Bag 1 BAG IV SCH (19:43)
[2017-03-24] MEDS: DORZOLAMIDE TIMOLOL EYEBOTH SCH (19:43)
[2017-03-24] MEDS: Latanoprost 0.005% Ophth Soln 2.5 ML Bottle EYEBOTH SCH (19:43)
[2017-03-25] MEDS: Brimonidine 0.2% Ophth Soln 5 ML Bottle EYEBOTH SCH ×2 (07:35→20:22)
[2017-03-25] MEDS: DORZOLAMIDE TIMOLOL EYEBOTH SCH ×2 (07:36→20:22)
[2017-03-25] MEDS: metFORMIN 500 MG Tab PO SCH (07:38)
[2017-03-25] MEDS: glipiZIDE 5 MG Tab PO SCH (07:38)
[2017-03-25] MEDS: atorvaSTATin 20 MG Tab PO SCH (07:39)
[2017-03-25] MEDS: Clopidogrel 75 MG Tab PO SCH (07:39)
[2017-03-25] MEDS: Lisinopril 20 MG Tab PO SCH (07:39)
[2017-03-25] MEDS: Cyanocobalamin (Vitamin B12) 100 MCG Tab PO SCH (07:40)
[2017-03-25] MEDS: Timolol Maleate 0.5% Ophth Soln 5 ML Bottle EYEBOTH SCH ×2 (07:41→20:22)
[2017-03-25] MEDS: cefTRIAXone 1 GM Vial IVPUSH SCH (07:42)
[2017-03-25] MEDS: Albuterol/Ipratropium 3.0-0.5 MG/3 ML Neb Soln NEB SCH ×3 (08:50→20:20)
[2017-03-25] MEDS: Latanoprost 0.005% Ophth Soln 2.5 ML Bottle EYEBOTH SCH (20:21)
[2017-03-25] MEDS: Levofloxacin/Dextrose 5%-Water 500 MG in Premix Bag 1 BAG IV SCH (20:21)
[2017-03-25] MEDS: Enoxaparin 40 MG/0.4 ML Syringe SUBCUT SCH (20:21)
[2017-03-26] MEDS: Brimonidine 0.2% Ophth Soln 5 ML Bottle EYEBOTH SCH ×2 (07:34→19:10)
[2017-03-26] MEDS: cefTRIAXone 1 GM Vial IVPUSH SCH (07:35)
[2017-03-26] MEDS: Timolol Maleate 0.5% Ophth Soln 5 ML Bottle EYEBOTH SCH ×2 (07:45→19:40)
[2017-03-26] MEDS: atorvaSTATin 20 MG Tab PO SCH (07:46)
[2017-03-26] MEDS: metFORMIN 500 MG Tab PO SCH (07:47)
[2017-03-26] MEDS: Lisinopril 20 MG Tab PO SCH (07:47)
[2017-03-26] MEDS: Clopidogrel 75 MG Tab PO SCH (07:47)
[2017-03-26] MEDS: Cyanocobalamin (Vitamin B12) 100 MCG Tab PO SCH (07:47)
[2017-03-26] MEDS: glipiZIDE 5 MG Tab PO SCH (07:48)
[2017-03-26] MEDS: DORZOLAMIDE TIMOLOL EYEBOTH SCH ×2 (09:00→19:21)
[2017-03-26] MEDS: Albuterol/Ipratropium 3.0-0.5 MG/3 ML Neb Soln NEB SCH ×3 (09:00→20:32)
[2017-03-26] MEDS: Enoxaparin 40 MG/0.4 ML Syringe SUBCUT SCH (19:14)
[2017-03-26] MEDS: Levofloxacin/Dextrose 5%-Water 500 MG in Premix Bag 1 BAG IV SCH (19:17)
[2017-03-26] MEDS: Latanoprost 0.005% Ophth Soln 2.5 ML Bottle EYEBOTH SCH (20:32)
[2017-03-27] MEDS: Brimonidine 0.2% Ophth Soln 5 ML Bottle EYEBOTH SCH ×2 (07:42→19:40)
[2017-03-27] MEDS: metFORMIN 500 MG Tab PO SCH (07:49)
[2017-03-27] MEDS: atorvaSTATin 20 MG Tab PO SCH (07:50)
[2017-03-27] MEDS: glipiZIDE 5 MG Tab PO SCH (07:50)
[2017-03-27] MEDS: Cyanocobalamin (Vitamin B12) 100 MCG Tab PO SCH (07:51)
[2017-03-27] MEDS: Lisinopril 20 MG Tab PO SCH (07:51)
[2017-03-27] MEDS: Clopidogrel 75 MG Tab PO SCH (07:51)
[2017-03-27] MEDS: DORZOLAMIDE TIMOLOL EYEBOTH SCH ×2 (07:52→19:39)
[2017-03-27] MEDS: cefTRIAXone 1 GM Vial IVPUSH SCH (07:53)
[2017-03-27] MEDS: Timolol Maleate 0.5% Ophth Soln 5 ML Bottle EYEBOTH SCH ×2 (07:58→19:38)
[2017-03-27] MEDS: Albuterol/Ipratropium 3.0-0.5 MG/3 ML Neb Soln NEB SCH ×3 (09:10→20:22)
[2017-03-27 11:11] LABS: CHLORIDE,CL 91 mEq/L (98-106); SODIUM,NA 126 mEq/L (136-145)
[2017-03-27] MEDS: Enoxaparin 40 MG/0.4 ML Syringe SUBCUT SCH (19:38)
[2017-03-27] MEDS: Latanoprost 0.005% Ophth Soln 2.5 ML Bottle EYEBOTH SCH (19:39)
[2017-03-27] MEDS: Levofloxacin/Dextrose 5%-Water 500 MG in Premix Bag 1 BAG IV SCH (19:44)
[2017-03-28] MEDS: Clopidogrel 75 MG Tab PO SCH (07:40)
[2017-03-28] MEDS: metFORMIN 500 MG Tab PO SCH (07:40)
[2017-03-28] MEDS: Cyanocobalamin (Vitamin B12) 100 MCG Tab PO SCH (07:41)
[2017-03-28] MEDS: atorvaSTATin 20 MG Tab PO SCH (07:41)
[2017-03-28] MEDS: Lisinopril 20 MG Tab PO SCH (07:41)
[2017-03-28] MEDS: glipiZIDE 5 MG Tab PO SCH (07:41)
[2017-03-28] MEDS: DORZOLAMIDE TIMOLOL EYEBOTH SCH ×2 (07:42→19:42)
[2017-03-28] MEDS: Timolol Maleate 0.5% Ophth Soln 5 ML Bottle EYEBOTH SCH ×2 (07:42→19:40)
[2017-03-28] MEDS: Brimonidine 0.2% Ophth Soln 5 ML Bottle EYEBOTH SCH ×2 (07:43→19:42)
[2017-03-28] MEDS: cefTRIAXone 1 GM Vial IVPUSH SCH (07:45)
[2017-03-28 08:04] LABS: CHLORIDE,CL 91 mEq/L (98-106)
[2017-03-28 08:09] LABS: SODIUM,NA 127 mEq/L (136-145)
[2017-03-28] MEDS: Albuterol/Ipratropium 3.0-0.5 MG/3 ML Neb Soln NEB SCH ×3 (09:32→20:36)
[2017-03-28] MEDS: Levofloxacin/Dextrose 5%-Water 500 MG in Premix Bag 1 BAG IV SCH (19:33)
[2017-03-28] MEDS: Enoxaparin 40 MG/0.4 ML Syringe SUBCUT SCH (19:35)
[2017-03-28] MEDS: Latanoprost 0.005% Ophth Soln 2.5 ML Bottle EYEBOTH SCH (19:42)
[2017-03-29] MEDS: cefTRIAXone 1 GM Vial IVPUSH SCH (07:33)
[2017-03-29] MEDS: glipiZIDE 5 MG Tab PO SCH (07:33)
[2017-03-29] MEDS: Cyanocobalamin (Vitamin B12) 100 MCG Tab PO SCH (07:33)
[2017-03-29] MEDS: atorvaSTATin 20 MG Tab PO SCH (07:33)
[2017-03-29] MEDS: Clopidogrel 75 MG Tab PO SCH (07:33)
[2017-03-29] MEDS: metFORMIN 500 MG Tab PO SCH (07:33)
[2017-03-29] MEDS: Brimonidine 0.2% Ophth Soln 5 ML Bottle EYEBOTH SCH ×2 (07:37→21:12)
[2017-03-29] MEDS: Timolol Maleate 0.5% Ophth Soln 5 ML Bottle EYEBOTH SCH ×2 (07:37→21:11)
[2017-03-29] MEDS: DORZOLAMIDE TIMOLOL EYEBOTH SCH ×2 (07:38→21:12)
[2017-03-29 08:00] LABS: CHLORIDE,CL 93 mEq/L (98-106); SODIUM,NA 128 mEq/L (136-145)
[2017-03-29] MEDS: Lisinopril 20 MG Tab PO SCH (08:08)
[2017-03-29] MEDS: Albuterol/Ipratropium 3.0-0.5 MG/3 ML Neb Soln NEB SCH ×3 (09:42→20:54)
[2017-03-29] MEDS: Levofloxacin/Dextrose 5%-Water 500 MG in Premix Bag 1 BAG IV SCH (20:54)
[2017-03-29] MEDS: Enoxaparin 40 MG/0.4 ML Syringe SUBCUT SCH (20:54)
[2017-03-29] MEDS: Latanoprost 0.005% Ophth Soln 2.5 ML Bottle EYEBOTH SCH (21:12)
[2017-03-30 07:15] LABS: CHLORIDE,CL 93 mEq/L (98-106); SODIUM,NA 128 mEq/L (136-145)
[2017-03-30] MEDS: cefTRIAXone 1 GM Vial IVPUSH SCH (09:05)
[2017-03-30] MEDS: Albuterol/Ipratropium 3.0-0.5 MG/3 ML Neb Soln NEB SCH ×3 (09:05→21:33)
[2017-03-30] MEDS: Lisinopril 20 MG Tab PO SCH (09:05)
[2017-03-30] MEDS: Clopidogrel 75 MG Tab PO SCH (09:05)
[2017-03-30] MEDS: Cyanocobalamin (Vitamin B12) 100 MCG Tab PO SCH (09:06)
[2017-03-30] MEDS: metFORMIN 500 MG Tab PO SCH (09:06)
[2017-03-30] MEDS: glipiZIDE 5 MG Tab PO SCH (09:06)
[2017-03-30] MEDS: atorvaSTATin 20 MG Tab PO SCH (09:06)
[2017-03-30] MEDS: Timolol Maleate 0.5% Ophth Soln 5 ML Bottle EYEBOTH SCH ×2 (09:08→19:55)
[2017-03-30] MEDS: Brimonidine 0.2% Ophth Soln 5 ML Bottle EYEBOTH SCH ×2 (09:08→19:55)
[2017-03-30] MEDS: DORZOLAMIDE TIMOLOL EYEBOTH SCH ×2 (09:09→19:55)
[2017-03-30] MEDS: Levofloxacin/Dextrose 5%-Water 500 MG in Premix Bag 1 BAG IV SCH (19:50)
[2017-03-30] MEDS: Enoxaparin 40 MG/0.4 ML Syringe SUBCUT SCH (19:53)
[2017-03-30] MEDS: Latanoprost 0.005% Ophth Soln 2.5 ML Bottle EYEBOTH SCH (19:55)
[2017-03-30] MEDS ORDERED: Calcium Carbonate 500 MG Tab.Chew PO PRN (21:16)
[2017-03-31 07:48] VITALS: BP 135/60
[2017-03-31] MEDS: Timolol Maleate 0.5% Ophth Soln 5 ML Bottle EYEBOTH SCH (07:53)
[2017-03-31] MEDS: Lisinopril 20 MG Tab PO SCH (07:54)
[2017-03-31] MEDS: Cyanocobalamin (Vitamin B12) 100 MCG Tab PO SCH (07:54)
[2017-03-31] MEDS: DORZOLAMIDE TIMOLOL EYEBOTH SCH (07:54)
[2017-03-31] MEDS: Brimonidine 0.2% Ophth Soln 5 ML Bottle EYEBOTH SCH (07:54)
[2017-03-31] MEDS: metFORMIN 500 MG Tab PO SCH (07:55)
[2017-03-31] MEDS: glipiZIDE 5 MG Tab PO SCH (07:55)
[2017-03-31] MEDS: atorvaSTATin 20 MG Tab PO SCH (07:55)
[2017-03-31] MEDS: Clopidogrel 75 MG Tab PO SCH (07:55)
[2017-03-31] MEDS: Albuterol/Ipratropium 3.0-0.5 MG/3 ML Neb Soln NEB SCH ×2 (08:24→13:45)
--- NOTE | 2017-03-31 11:13 | DISCH ---
HOSPITAL COURSE: This is an elderly gentleman came in with moderate severe bronchiolitis, now started on IV therapy, also was hyponatremic. We had to do fluid restrictions. I did do a CTA of his chest, showed no lung lesions that may cause hyponatremia, but they did pick up attendant a pancreatic lesion on CT of his abdomen, which we are investigating with an MRI. Lab here in the hospital, CBC looked good. We followed his sodiums, we got them as high as 128. Blood sugars were stable. At the time of discharge, neck was supple, chest was clear, cardiac sounds were good. DISPOSITION: The patient is now discharged to home. We will see him back in the clinic in 1 week for panel-8, and recheck discharge medications, home medications. DISCHARGE DIAGNOSIS: 1. BRONCHIOLITIS. 2. HYPONATREMIA. 3. DIABETES TYPE 2. 4. PANCREATIC MASS. 5. LOW MAGNESIUM. COSMO/GUILLAUME /[id number]
== END 2017-03-31 15:50 | disposition home or self-care (01) | DRG 556 ==
LOC: CC.MS 10:23 → UNDOADMIN 10:23 → CC.MS 10:47
PROVIDERS: ADMIT General Practice; ATTEND General Practice
DX: R26.2 Difficulty in walking, not elsewhere classified (principal); J21.9 Acute bronchiolitis, unspecified; E87.1 Hypo-osmolality and hyponatremia; E11.9 Type 2 diabetes mellitus without complications; E83.42 Hypomagnesemia; F03.90 Unspecified dementia, unspecified severity, without behavioral disturbance, psychotic disturbance, mood disturbance, and anxiety; E78.5 Hyperlipidemia, unspecified; I10 Essential (primary) hypertension; Z86.73 Personal history of transient ischemic attack (TIA), and cerebral infarction without residual deficits; E53.8 Deficiency of other specified B group vitamins; F17.200 Nicotine dependence, unspecified, uncomplicated; Z79.84 Long term (current) use of oral hypoglycemic drugs; Z79.899 Other long term (current) drug therapy; K86.9 Disease of pancreas, unspecified; F10.10 Alcohol abuse, uncomplicated
CPT/HCPCS: 36415; 74183; 80048; 82962; 83735; 85025; 86140; 94640; 94640-76; 94644; 97110-GP; 97530-GP; A9270-GY; A9579; J0696; J1650; J1956; J3475

== ENCOUNTER 2017-04-05 14:31 | Observation (INO) | payer MEDICARE, OTHER ==
[2017-04-05 15:25] LABS: CHLORIDE,CL 88 mEq/L (98-106)
[2017-04-05 15:28] LABS: SODIUM,NA 121 mEq/L (136-145)
--- NOTE | 2017-04-05 15:51 | EDM.PDOC ---
ED HPI GENERAL MEDICAL PROBLEM - General Chief Complaint: General Stated Complaint: edema, shaky, dizzy Time Seen by Provider: 04/05/17 14:50 Source of Information: Reports: Patient History Limitations: Reports: No Limitations - History of Present Illness INITIAL COMMENTS - FREE TEXT/NARRATIVE: Patient states he feels shaky and weak, but denies pain or SOB Onset: Today Duration: Hour(s): Location: Reports: Generalized Severity: Moderate - Related Data Allergies Allergy/AdvReac Type Severity Reaction Status Date / Time No Known Allergies Allergy Verified 04/05/17 14:34 Home Meds: Home Meds Clopidogrel [Plavix] 75 mg PO DAILY 01/11/14 [History] Cyanocobalamin (Vitamin B-12) [Vitamin B-12] 100 mcg PO DAILY 01/11/14 [History] Latanoprost 1 drop EYEBOTH BEDTIME 01/11/14 [History] Timolol Maleate [Timoptic 0.5% Ophth Soln] 1 drop EYEBOTH BID 01/11/14 [History] atorvaSTATin [Lipitor] 40 mg PO DAILY 01/11/14 [History] Cholecalciferol (Vitamin D3) [Vitamin D3] 5,000 unit PO DAILY 03/19/17 [History] Lisinopril 20 mg PO DAILY 03/19/17 [History] glipiZIDE [Glucotrol] 10 mg PO DAILY 03/19/17 [History] metFORMIN HCl [Metformin HCl] 1,000 mg PO DAILY 03/19/17 [History] Brimonidine Tartrate [Brimonidine Tartrate 0.2% Ophth Soln] 1 drop EYEBOTH BID 03/31/17 [History] Dorzolamide [Trusopt 2% Ophth Soln] 1 drop EYEBOTH BID 03/31/17 [History] Past Medical History HEENT History: Reports: Other (See Below) Other HEENT History: BLIND IN LEFT EYE Cardiovascular History: Reports: High Cholesterol, Hypertension Genitourinary History: Reports: Urinary Incontinence Neurological History: Reports: CVA Psychiatric History: Reports: Anxiety Endocrine/Metabolic History: Reports: Diabetes, Type II Other Endocrine/Metabolic History: VITAMIN B 12 DEFICIENCY Hematologic History: Reports: B12 Deficiency - Past Surgical History Cardiovascular Surgical History: Reports: Carotid Endarterectomy GI Surgical History: Reports: Appendectomy Social & Family History - Tobacco Use Smoking Status *Q: Current Every Day Smoker Years of Tobacco use: 50 Packs/Tins Daily: 1 - Caffeine Use Caffeine Use: Reports: Coffee - Alcohol Use Days Per Week of Alcohol Use: 7 Number of Drinks Per Day: 8 Total Drinks Per Week: 56 - Recreational Drug Use Recreational Drug Use: No - Living Situation & Occupation Living situation: Reports: Single, Alone Occupation: Retired ED ROS GENERAL - Review of Systems Review Of Systems: ROS reveals no pertinent complaints other than HPI. ED EXAM, GENERAL - Physical Exam Exam: See Below Free Text/Narrative:: Patient appears very pale and weak, he is a little confused and answers slowly. Exam Limited By: Altered Mental Status General Appearance: Lethargic Throat/Mouth: Normal Inspection Head: Atraumatic Respiratory/Chest: Wheezing Cardiovascular: Normal Peripheral Pulses Back Exam: Normal Inspection Extremities: Normal Inspection Neurological: Confused, Slow to Respond Psychiatric: Depressed Mood Skin Exam: Pallor Course - Vital Signs Last Recorded V/S: Last Vital Signs Temp 97.8 F 04/05/17 14:35 Pulse 95 04/05/17 14:35 Resp 18 04/05/17 14:35 BP 167/78 H 04/05/17 14:35 Pulse Ox 98 04/05/17 14:35 - Orders/Labs/Meds Orders: Active Orders 24 hr Category Date Time Status Chest 2V [CR] Stat Exams 04/05/17 15:40 Ordered Sodium Chloride 0.9% @ 100 MLS/HR(1,000ml) Med 04/05/17 15:45 Ordered Sodium Chloride 0.9% [Normal Saline] 1,000 ml IV ASDIRECTED Medication Orders Sodium Chloride (Normal Saline) 1,000 mls @ 100 mls/hr IV ASDIRECTED ANT Labs: Laboratory Tests 04/05/17 04/05/17 04/05/17 Range/Units 14:55 14:55 15:10 WBC 12.2 H (5.0-10.0) 10^3/uL RBC 4.05 L (4.50-6.00) 10^6/uL Hgb 12.4 L (14.0-18.0) g/dL Hct 35.8 L (40.0-54.0) % MCV 88.4 (82.0-94.0) fL MCH 30.6 (27.0-32.0) pg MCHC 34.6 (33.0-38.0) g/dL RDW Coeff of Caryn 12.8 (11.0-15.0) % Plt Count 399 (150-400) 10^3/uL Neut % (Auto) 73.2 (35-85) % Lymph % (Auto) 21.2 (10-55) % [place] % (Auto) 4.4 (0-16) % Eos % (Auto) 0.8 (0-5) % Baso % (Auto) 0.4 (0-3) % Neut # (Auto) 8.91 H (1.80-7.00) 10^3/uL Lymph # (Auto) 2.58 (1.00-4.80) 10^3/uL [place] # (Auto) 0.54 (0.00-0.80) 10^3/uL Eos # (Auto) 0.10 (0.00-0.45) 10^3/uL Baso # (Auto) 0.05 10^3/uL Sodium 121 L* (136-145) mEq/L Potassium 4.8 (3.5-5.0) mEq/L Chloride 88 L (98-106) mEq/L Carbon Dioxide 28 (21-32) mmol/L BUN 8 (7-18) mg/dL Creatinine 0.7 (0.7-1.3) mg/dL Est Cr Clr Drug Dosing 101.00 mL/min Estimated GFR (MDRD) > 60 (>=60) mL/min Glucose 196 H D (75-99) mg/dL Calcium 8.9 (8.4-10.1) mg/dL Total Bilirubin 0.4 (0.0-1.0) mg/dL AST 14 L (15-37) U/L ALT 15 (12-78) U/L Alkaline Phosphatase 97 (46-116) U/L Ljg-U-Micqukqtsdz Pept 232 (0-1000) pg/nL Total Protein 7.2 (6.4-8.2) g/dL Albumin 3.2 L (3.4-5.0) g/dL Urine Color Light yellow (YELLOW) Urine Appearance Clear (CLEAR) Urine pH 7.5 (4.5-8.0) Ur Specific [place] 1.007 (1.003-1.020) Urine Protein Negative (NEGATIVE) mg/dL Urine Glucose (UA) 100 H (NEGATIVE) mg/dL Urine Ketones Negative (NEGATIVE) mg/dL Urine Occult Blood Trace-intact H (NEGATIVE) Urine Nitrite Negative (NEGATIVE) Urine Bilirubin Negative (NEGATIVE) Urine Urobilinogen 0.2 (0.2-1.0) EU/dL Ur Leukocyte Esterase Negative (NEGATIVE) Urine RBC 0-5 (0-5) /HPF Urine WBC Not seen (0-5) /HPF Ur Squamous Epith Cells Occasional H (NOT SEEN) /HPF Meds: Medications Generic Name Dose Route Start Last Admin Trade Name Freq PRN Reason Stop Dose Admin Sodium Chloride 1,000 mls @ 100 mls/hr 04/05/17 15:45 Normal Saline IV ASDIRECTED ANT Departure - Departure Time of Disposition: 15:49 (will place n observation for sodium replacement and repeat labs in AM. [facility] Disposition: Refer to Observation Condition: Fair Clinical Impression: Hyponatremia - Discharge Information Forms: ED Department Discharge - My Orders Last 24 Hours: My Active Orders 04/05/17 15:40 Chest 2V [CR] Stat 04/05/17 15:45 Sodium Chloride 0.9% @ 100 MLS/HR(1,000ml) Sodium Chloride 0.9% [Normal Saline] 1,000 ml IV ASDIRECTED - Assessment/Plan Admission H&P: Please use this note as an admission H&P Last 24 Hours: My Active Orders 04/05/17 15:40 Chest 2V [CR] Stat 04/05/17 15:45 Sodium Chloride 0.9% @ 100 MLS/HR(1,000ml) Sodium Chloride 0.9% [Normal Saline] 1,000 ml IV ASDIRECTED
[2017-04-05] MEDS: Sodium Chloride 0.9% 1,000 ML IV SCH (15:56)
[2017-04-05] MEDS ORDERED: Ondansetron 4 MG Tab.DIS PO PRN (16:23)
[2017-04-05] MEDS ORDERED: Acetaminophen 325 MG Tab PO PRN (16:23)
[2017-04-05] MEDS ORDERED: Albuterol/Ipratropium 3.0-0.5 MG/3 ML Neb Soln NEB PRN (18:01)
[2017-04-05] MEDS: Enoxaparin 40 MG/0.4 ML Syringe SUBCUT SCH (18:09)
[2017-04-05] MEDS: BRIMONIDINE 0.2% EYEBOTH SCH (19:48)
[2017-04-05] MEDS: DORZOLAMIDE EYEBOTH SCH (19:48)
[2017-04-05] MEDS: TIMOLOL MALEATE 0.5% EYEBOTH SCH (19:51)
[2017-04-05] MEDS: LATANOPROST 0.005% EYEBOTH SCH (19:51)
[2017-04-05 22:37] LABS: CHLORIDE,CL 92 mEq/L (98-106)
[2017-04-05 22:40] LABS: SODIUM,NA 124 mEq/L (136-145)
[2017-04-06] MEDS: Sodium Chloride 0.9% 1,000 ML IV SCH ×2 (02:05→17:45)
--- NOTE | 2017-04-06 07:17 | PCM.PN ---
- General Info Date of Service: 04/06/17 (Patient looks and feels much better this morning. I was concerned that treating him with Saline only last night would make his moderate hyponatremia worse without 3% infusion of po salt tabs, but his serum sodium is moving in the right direction.) Admission Dx/Problem (Free Text): To ER with weakness and feeling jittery, and was found to have moderate hyponatremia with a serum sodium of 121. Functional Status: Reports: Pain Controlled - Review of Systems General: Reports: Malaise Pulmonary: Reports: No Symptoms Cardiovascular: Reports: No Symptoms Gastrointestinal: Reports: No Symptoms Genitourinary: Reports: No Symptoms Musculoskeletal: Reports: No Symptoms Skin: Reports: No Symptoms Neurological: Reports: No Symptoms Psychiatric: Reports: Confusion - Patient Data Vitals - most recent: Last Vital Signs Temp 96.9 F 04/06/17 03:37 Pulse 68 04/06/17 03:37 Resp 20 04/06/17 03:37 BP 116/64 04/06/17 03:37 Pulse Ox 97 04/06/17 03:37 Weight - most recent: 183 lb 12.8 oz I&O - last 24 hours: Intake & Output 04/05/17 04/06/17 04/06/17 22:59 06:59 14:59 Intake Total 400 1200 Output Total 1100 1350 Balance -700 -150 Lab Results last 24 hrs: Laboratory Results - last 24 hr 04/05/17 Range/Units 22:25 Sodium 124 L* (136-145) mEq/L Potassium 4.3 (3.5-5.0) mEq/L Chloride 92 L (98-106) mEq/L Carbon Dioxide 26 (21-32) mmol/L BUN 7 (7-18) mg/dL Creatinine 0.7 (0.7-1.3) mg/dL Est Cr Clr Drug Dosing 101.00 mL/min Estimated GFR (MDRD) > 60 (>=60) mL/min Glucose 96 D (75-99) mg/dL Calcium 8.4 (8.4-10.1) mg/dL Med Orders - Current: Current Medications Acetaminophen (Tylenol) 650 mg PO Q4H PRN PRN Reason: Pain (Mild 1-3)/fever Albuterol/Ipratropium (Duoneb 3.0-0.5 Mg/3 Ml) 3 ml NEB Q4H PRN PRN Reason: Dyspnea Brimonidine Tartrate (Alphagan 0.2% Ophth Soln) 0 ml EYEBOTH BID [facility] Last Admin: 04/05/17 19:48 Dose: 1 drop Clopidogrel Bisulfate (Plavix) 75 mg PO DAILY [facility] Cyanocobalamin (Vitamin B12) 100 mcg PO DAILY [facility] Enoxaparin Sodium (Lovenox) 40 mg SUBCUT Q24H [facility] Last Admin: 04/05/17 18:09 Dose: 40 mg Sodium Chloride (Normal Saline) 1,000 mls @ 100 mls/hr IV ASDIRECTED [facility] Last Admin: 04/06/17 02:05 Dose: 100 mls/hr Latanoprost (Xalatan 0.005% Ophth Soln) 0 ml EYEBOTH BEDTIME [facility] Last Admin: 04/05/17 19:51 Dose: 1 drop Lisinopril (Prinivil) 20 mg PO DAILY [facility] Metformin HCl (Glucophage) 1,000 mg PO DAILY [facility] Patients Own Med (Cholecalciferol ( Vitamin D3) [Vitamin D3] 5,000 Unit) 5, 000 unit PO DAILY [facility] Patients Own Med (Dorzolamide [ Trusopt 2% Ophth Soln] 1 Drop) 1 drop EYEBOTH BID [facility] Last Admin: 04/05/17 19:48 Dose: 1 drop Patients Own Med (Atorvastatin [ Lipitor] 40 Mg) 40 mg PO DAILY [facility] Patients Own Med (Glipizide [ Glucotrol] 10 Mg) 10 mg PO DAILY [facility] Ondansetron HCl (Zofran Odt) 4 mg PO Q4H PRN PRN Reason: nausea, able to take PO Timolol Maleate (Timoptic 0.5% Ophth Soln) 0 ml EYEBOTH BID [facility] Last Admin: 04/05/17 19:51 Dose: 1 drop - Problem List Review Problem List Initiated/Reviewed/Updated: Yes - My Orders Last 24 Hours: My Active Orders 04/05/17 18:01 RT Aerosol Therapy [RC] .PRN Albuterol/Ipratropium [DuoNeb 3.0-0.5 MG/3 ML] 3 ml NEB Q4H PRN 04/05/17 Dinner Fluid Restriction [DIET]
[2017-04-06] MEDS ORDERED: CYANOCOBALAMIN 100 MCG PO SCH (08:00)
[2017-04-06] MEDS ORDERED: LISINOPRIL 20 MG PO SCH (08:00)
[2017-04-06 08:44] LABS: CHLORIDE,CL 96 mEq/L (98-106); SODIUM,NA 129 mEq/L (136-145)
--- NOTE | 2017-04-06 09:27 | PN ---
DATE: 04/06/2017 S: Bart Gastelum is an elderly gentleman, who was sent home with weakness, hyponatremia, history of alcoholism and came back in a little bit shaky with swollen legs and was admitted again with hyponatremia. We started on some IV saline. O: GENERAL: This morning, he is not confused, extremely weak. NECK: Supple. CHEST: Clear. CARDIAC: Regular. On previous admission we did CT his chest, there was no evidence of lung cancer is causing the hyponatremia could be a polydipsia thing. He does have a pancreatic lesion which MRI shows probably this cystic lesion. Long discussions with sister, I believe that we will keep him in here in observation, possible swing bed PT, try and get him to the [facility] because he needs long- term care. COSMO/GUILLAUME /[id number]
[2017-04-06] MEDS: BRIMONIDINE 0.2% EYEBOTH SCH ×2 (11:52→19:26)
[2017-04-06] MEDS: DORZOLAMIDE EYEBOTH SCH ×2 (11:53→19:26)
[2017-04-06] MEDS: TIMOLOL MALEATE 0.5% EYEBOTH SCH ×2 (11:54→19:26)
[2017-04-06] MEDS: GLIPIZIDE 10 MG PO SCH (11:56)
[2017-04-06] MEDS: ATORVASTATIN 80 MG PO SCH (11:56)
[2017-04-06] MEDS: CHOLECALCIFEROL 5000 UNIT PO SCH (11:56)
[2017-04-06] MEDS: CLOPIDOGREL 75 MG PO SCH (11:57)
[2017-04-06] MEDS: METFORMIN 500 MG PO SCH (11:57)
[2017-04-06] MEDS: LISINOPRIL 40 MG PO SCH (11:57)
[2017-04-06] MEDS: Enoxaparin 40 MG/0.4 ML Syringe SUBCUT SCH (17:45)
[2017-04-06] MEDS: LATANOPROST 0.005% EYEBOTH SCH (19:26)
[2017-04-07 07:38] LABS: CHLORIDE,CL 97 mEq/L (98-106); SODIUM,NA 131 mEq/L (136-145)
[2017-04-07] MEDS: DORZOLAMIDE EYEBOTH SCH ×2 (07:54→21:04)
[2017-04-07] MEDS: TIMOLOL MALEATE 0.5% EYEBOTH SCH ×2 (07:54→21:04)
[2017-04-07] MEDS: BRIMONIDINE 0.2% EYEBOTH SCH ×2 (07:54→21:03)
[2017-04-07] MEDS: CHOLECALCIFEROL 5000 UNIT PO SCH (07:55)
[2017-04-07] MEDS: METFORMIN 500 MG PO SCH (07:55)
[2017-04-07] MEDS: ATORVASTATIN 80 MG PO SCH (07:55)
[2017-04-07] MEDS: GLIPIZIDE 10 MG PO SCH (07:55)
[2017-04-07] MEDS: CLOPIDOGREL 75 MG PO SCH (07:56)
[2017-04-07] MEDS: LISINOPRIL 40 MG PO SCH (07:56)
--- NOTE | 2017-04-07 09:24 | PN ---
DATE: 04/07/2017 S: Bart Gastelum is an elderly gentleman with hyponatremia, confusion. O: On examination; NECK: Supple. CHEST: Clear. HEART: Cardiac sounds are good. NEURO: He is not confused. LABORATORY: Sodium is up to 131. We are waiting for some kind of snf placement. Otherwise, we will swing him tomorrow with PT. COSMO/GUILLAUME /[id number]
[2017-04-07] MEDS: Sodium Chloride 0.9% 1,000 ML IV SCH (13:41)
[2017-04-07] MEDS: Enoxaparin 40 MG/0.4 ML Syringe SUBCUT SCH (18:00)
[2017-04-07] MEDS: LATANOPROST 0.005% EYEBOTH SCH (21:05)
[2017-04-08 07:41] VITALS: BP 147/72
[2017-04-08] MEDS: TIMOLOL MALEATE 0.5% EYEBOTH SCH (07:46)
[2017-04-08] MEDS: DORZOLAMIDE EYEBOTH SCH (07:47)
[2017-04-08] MEDS: BRIMONIDINE 0.2% EYEBOTH SCH (07:47)
[2017-04-08] MEDS: METFORMIN 500 MG PO SCH (07:47)
[2017-04-08] MEDS: GLIPIZIDE 10 MG PO SCH (07:48)
[2017-04-08] MEDS: CHOLECALCIFEROL 5000 UNIT PO SCH (07:49)
[2017-04-08] MEDS: ATORVASTATIN 80 MG PO SCH (07:49)
[2017-04-08] MEDS: LISINOPRIL 40 MG PO SCH (07:50)
[2017-04-08] MEDS: CLOPIDOGREL 75 MG PO SCH (07:51)
[2017-04-08 08:05] LABS: CHLORIDE,CL 97 mEq/L (98-106); SODIUM,NA 131 mEq/L (136-145)
--- NOTE | 2017-04-09 07:14 | DISCH ---
HOSPITAL COURSE: Bart Gastelum came in with weakness, difficulty ambulating, hyponatremic, he has been started on IV saline, fluid restricted. At the time of discharge to swing bed, he was still weak. Sodium was above 130. This patient is an interesting situation the fact that he has alcoholic dementia, recurrent hyponatremia without any lung lesions. I am questioning whether he may have something of pituitary and will go ahead and evaluate that. Rest of lab here in the hospital, urine sodium was 124 when he came in, this was up to 131, blood sugars mildly elevated. Urinalysis looked good, a little bit of glycosuria. CBC looked good. DISPOSITION: The patient now discharged to swing bed and continue physical therapy. We will get appropriate lab and x-ray. DISCHARGE MEDICATIONS: Hospital medications. I am going to discontinue glipizide. DISCHARGE DIAGNOSIS: 1. HYPONATREMIA. 2. ALCOHOLIC DEMENTIA. 3. WEAKNESS. 4. DIABETES MELLITUS. 5. HYPERLIPIDEMIA. COSMO/GUILLAUME /[id number]
== END 2017-04-08 09:25 | disposition swing bed (61) ==
LOC: CC.ED 14:31 → CC.MS 16:20 → UNDOADMOB 16:20 → CC.MS 16:23
PROVIDERS: ADMIT Nurse Practitioner Family; ATTEND General Practice
DX: E87.1 Hypo-osmolality and hyponatremia (principal); F10.97 Alcohol use, unspecified with alcohol-induced persisting dementia; R53.1 Weakness; E11.9 Type 2 diabetes mellitus without complications; E78.5 Hyperlipidemia, unspecified; I10 Essential (primary) hypertension; E78.00 Pure hypercholesterolemia, unspecified; F41.9 Anxiety disorder, unspecified; Z79.899 Other long term (current) drug therapy; Z79.84 Long term (current) use of oral hypoglycemic drugs; Z90.49 Acquired absence of other specified parts of digestive tract; Z98.890 Other specified postprocedural states; F17.210 Nicotine dependence, cigarettes, uncomplicated
CPT/HCPCS: 36415; 71020; 80048; 80053; 81001; 82962; 83880; 85025; 96360; 96361; 96372; 97110; 97161; 97530; 99284; A9270; G0378; J1650; J7030; 99217; 99220; 99225

== ENCOUNTER 2017-04-08 09:31 | Inpatient (IN) | payer MEDICARE, OTHER ==
[2017-04-08] MEDS ORDERED: Acetaminophen 325 MG Tab PO PRN (10:03)
[2017-04-08] MEDS ORDERED: Ondansetron 4 MG Tab.DIS PO PRN (10:03)
[2017-04-08] MEDS ORDERED: Albuterol/Ipratropium 3.0-0.5 MG/3 ML Neb Soln NEB PRN (10:03)
[2017-04-08] MEDS: Sodium Chloride 0.9% 1,000 ML IV SCH (11:21)
[2017-04-08] MEDS: Enoxaparin 40 MG/0.4 ML Syringe SUBCUT SCH (19:41)
[2017-04-08] MEDS: Brimonidine 0.2% Ophth Soln 5 ML Bottle EYEBOTH SCH (19:42)
[2017-04-08] MEDS: Latanoprost 0.005% Ophth Soln 2.5 ML Bottle EYEBOTH SCH (19:42)
[2017-04-08] MEDS: Timolol Maleate 0.5% Ophth Soln 5 ML Bottle EYEBOTH SCH (19:43)
[2017-04-08] MEDS: DORZOLAMIDE EYEBOTH SCH (19:43)
[2017-04-09] MEDS: Lisinopril 20 MG Tab PO SCH (07:43)
[2017-04-09] MEDS: atorvaSTATin 20 MG Tab PO SCH (07:43)
[2017-04-09] MEDS: Cyanocobalamin (Vitamin B12) 100 MCG Tab PO SCH (07:43)
[2017-04-09] MEDS: Clopidogrel 75 MG Tab PO SCH (07:43)
[2017-04-09] MEDS: metFORMIN 500 MG Tab PO SCH (07:44)
[2017-04-09] MEDS: Sodium Chloride 0.9% 1,000 ML IV SCH (07:46)
[2017-04-09] MEDS: DORZOLAMIDE EYEBOTH SCH ×2 (07:47→20:12)
[2017-04-09] MEDS: Timolol Maleate 0.5% Ophth Soln 5 ML Bottle EYEBOTH SCH ×2 (07:47→20:13)
[2017-04-09] MEDS: Brimonidine 0.2% Ophth Soln 5 ML Bottle EYEBOTH SCH ×2 (07:47→20:13)
[2017-04-09] MEDS: Cholecalciferol (Vitamin D3) 1,000 Unit Tab PO SCH (07:49)
[2017-04-09 08:33] LABS: CHLORIDE,CL 97 mEq/L (98-106); SODIUM,NA 132 mEq/L (136-145)
[2017-04-09] MEDS: Enoxaparin 40 MG/0.4 ML Syringe SUBCUT SCH (20:13)
[2017-04-09] MEDS: Latanoprost 0.005% Ophth Soln 2.5 ML Bottle EYEBOTH SCH (20:13)
[2017-04-10] MEDS: metFORMIN 500 MG Tab PO SCH (07:48)
[2017-04-10] MEDS: Clopidogrel 75 MG Tab PO SCH (07:48)
[2017-04-10] MEDS: atorvaSTATin 20 MG Tab PO SCH (07:48)
[2017-04-10] MEDS: Cholecalciferol (Vitamin D3) 1,000 Unit Tab PO SCH (07:48)
[2017-04-10] MEDS: DORZOLAMIDE EYEBOTH SCH ×2 (07:49→19:23)
[2017-04-10] MEDS: Brimonidine 0.2% Ophth Soln 5 ML Bottle EYEBOTH SCH ×2 (07:49→19:17)
[2017-04-10] MEDS: Lisinopril 20 MG Tab PO SCH (07:49)
[2017-04-10] MEDS: Cyanocobalamin (Vitamin B12) 100 MCG Tab PO SCH (07:49)
[2017-04-10] MEDS: Timolol Maleate 0.5% Ophth Soln 5 ML Bottle EYEBOTH SCH ×2 (07:50→19:38)
[2017-04-10] MEDS: Enoxaparin 40 MG/0.4 ML Syringe SUBCUT SCH (19:38)
[2017-04-10] MEDS: Latanoprost 0.005% Ophth Soln 2.5 ML Bottle EYEBOTH SCH (19:56)
[2017-04-11] MEDS: metFORMIN 500 MG Tab PO SCH (07:55)
[2017-04-11] MEDS: Lisinopril 20 MG Tab PO SCH (07:56)
[2017-04-11] MEDS: Clopidogrel 75 MG Tab PO SCH (07:56)
[2017-04-11] MEDS: Cholecalciferol (Vitamin D3) 1,000 Unit Tab PO SCH (07:56)
[2017-04-11] MEDS: Cyanocobalamin (Vitamin B12) 100 MCG Tab PO SCH (07:57)
[2017-04-11] MEDS: atorvaSTATin 20 MG Tab PO SCH (07:57)
[2017-04-11] MEDS: Brimonidine 0.2% Ophth Soln 5 ML Bottle EYEBOTH SCH ×2 (07:58→19:20)
[2017-04-11] MEDS: Timolol Maleate 0.5% Ophth Soln 5 ML Bottle EYEBOTH SCH ×2 (08:02→19:46)
[2017-04-11] MEDS: DORZOLAMIDE EYEBOTH SCH ×2 (08:28→19:26)
[2017-04-11] MEDS: Latanoprost 0.005% Ophth Soln 2.5 ML Bottle EYEBOTH SCH (20:09)
[2017-04-11] MEDS: Enoxaparin 40 MG/0.4 ML Syringe SUBCUT SCH (20:09)
[2017-04-12] MEDS: Timolol Maleate 0.5% Ophth Soln 5 ML Bottle EYEBOTH SCH ×2 (07:45→19:31)
[2017-04-12] MEDS: Cholecalciferol (Vitamin D3) 1,000 Unit Tab PO SCH (07:45)
[2017-04-12] MEDS: metFORMIN 500 MG Tab PO SCH (07:46)
[2017-04-12] MEDS: Lisinopril 20 MG Tab PO SCH (07:47)
[2017-04-12] MEDS: Clopidogrel 75 MG Tab PO SCH (07:47)
[2017-04-12] MEDS: atorvaSTATin 20 MG Tab PO SCH (07:47)
[2017-04-12] MEDS: Cyanocobalamin (Vitamin B12) 100 MCG Tab PO SCH (07:48)
[2017-04-12] MEDS: DORZOLAMIDE EYEBOTH SCH ×2 (08:06→19:37)
[2017-04-12] MEDS: Brimonidine 0.2% Ophth Soln 5 ML Bottle EYEBOTH SCH ×2 (09:31→19:23)
[2017-04-12] MEDS: Latanoprost 0.005% Ophth Soln 2.5 ML Bottle EYEBOTH SCH (20:02)
[2017-04-12] MEDS: Enoxaparin 40 MG/0.4 ML Syringe SUBCUT SCH (20:02)
[2017-04-13] MEDS: Clopidogrel 75 MG Tab PO SCH (07:47)
[2017-04-13] MEDS: Cyanocobalamin (Vitamin B12) 100 MCG Tab PO SCH (07:47)
[2017-04-13] MEDS: atorvaSTATin 20 MG Tab PO SCH (07:47)
[2017-04-13] MEDS: metFORMIN 500 MG Tab PO SCH (07:47)
[2017-04-13] MEDS: Cholecalciferol (Vitamin D3) 1,000 Unit Tab PO SCH (07:47)
[2017-04-13] MEDS: Lisinopril 20 MG Tab PO SCH (07:47)
[2017-04-13 07:51] VITALS: BP 120/66
[2017-04-13] MEDS: Brimonidine 0.2% Ophth Soln 5 ML Bottle EYEBOTH SCH (08:01)
[2017-04-13] MEDS: Timolol Maleate 0.5% Ophth Soln 5 ML Bottle EYEBOTH SCH (08:01)
[2017-04-13] MEDS: DORZOLAMIDE EYEBOTH SCH (08:01)
--- NOTE | 2017-04-13 10:32 | DISCH ---
HISTORY: Bart Gastelum is an elderly gentleman came in with moderate severe hyponatremia possibly from glipizide, so I went ahead and discontinued, and his sodium is up to 132. His fluid restricted. Given IV saline. I then put in a swing bed in Physical therapy. On admission, his sodium was 124; discharge was in the 130s. I did stop the glipizide blood sugars stayed good. Cortisol level is pending. Calcium level looks good, but his total protein is down. DISPOSITION: The patient now discharged to [facility]. DISCHARGE MEDICATIONS: Hospital medications except Lovenox. DISCHARGE DIAGNOSIS: 1. HYPONATREMIA. 2. ALCOHOLIC ENCEPHALOPATHY. 3. DEMENTIA. 4. HYPERLIPIDEMIA. 5. HYPERTENSION. COSMO/GUILLAUME /[id number]
== END 2017-04-13 09:50 | DRG 641 ==
LOC: CC.MS 09:31 → UNDOADMIN 09:31 → INTOOBSV 10:03 → UNDOADMIN 10:03 → OBSVTOIN 10:03 → CC.MS 10:03
PROVIDERS: ADMIT General Practice; ATTEND General Practice
DX: E87.1 Hypo-osmolality and hyponatremia (principal); G31.2 Degeneration of nervous system due to alcohol; F02.80 Dementia in other diseases classified elsewhere, unspecified severity, without behavioral disturbance, psychotic disturbance, mood disturbance, and anxiety; E78.5 Hyperlipidemia, unspecified; I10 Essential (primary) hypertension; R53.1 Weakness
CPT/HCPCS: 36415; 80048; 82024; 82533; 82962; 84146; 97110-GP; A9270-GY; J1650; J7030

== ENCOUNTER 2019-01-26 17:00 | Inpatient (IN) | payer MEDICARE, MEDICAID ==
[2019-01-26 17:45] LABS: CHLORIDE,CL 89 mEq/L (98-106)
[2019-01-26 17:46] LABS: SODIUM,NA 124 mEq/L (136-145)
--- NOTE | 2019-01-26 17:56 | EDM.PDOC ---
ED HPI GENERAL MEDICAL PROBLEM - General Chief Complaint: General Stated Complaint: leg weakness, cough Time Seen by Provider: 01/26/19 17:35 Source of Information: Reports: Patient History Limitations: Reports: No Limitations - History of Present Illness INITIAL COMMENTS - FREE TEXT/NARRATIVE: Patient presents to ER with family with concerns of increased weakness in his legs. Patient is a resident at [facility] but was out on a pass with family as he was supposed to have an appointment at the eye doctor today in [place]. Spent the night at his sister's house last evening. She relates his legs were weak yesterday and he feel twice. Today, family was unable to get him out of the car for his appointment and returned back home. They did consider taking him to the [facility] but opted to return back home. [facility] states he has had intermittent leg weakness at times. Had a CVA about 7 years ago. Resided at home for 5 years after with family helping out at times. He was admitted to the half-way as he continued to get weaker. He also has had difficulty with his sodium level and was admitted here for a sodium of 121 and transferred to the half-way in 2017. Family notes he hasn't been eating and drinking as well. Has a moist cough. Was started on guaifenisin last week. No fevers. Is incontinent of urine at times. No nausea/vomiting or abdominal pain. Onset: Gradual Duration: Day(s):, Getting Worse Location: Reports: Generalized Improves with: Reports: Rest Associated Symptoms: Reports: Confusion, Cough, Weakness. Denies: Chest Pain, Fever/Chills, Loss of Appetite, Nausea/Vomiting, Shortness of Breath, Syncope - Related Data Allergies Allergy/AdvReac Type Severity Reaction Status Date / Time No Known Allergies Allergy Verified 01/26/19 17:09 Home Meds: Home Meds Clopidogrel [Plavix] 75 mg PO DAILY 01/11/14 [History] Cyanocobalamin (Vitamin B-12) [Vitamin B-12] 1,000 mcg PO DAILY 01/11/14 [ History] Latanoprost 1 drop EYEBOTH BEDTIME 01/11/14 [History] Timolol Maleate [Timoptic 0.5% Ophth Soln] 1 drop EYEBOTH BID 01/11/14 [History] atorvaSTATin [Lipitor] 40 mg PO DAILY 01/11/14 [History] Cholecalciferol (Vitamin D3) [Vitamin D3] 5,000 unit PO DAILY 03/19/17 [History] Lisinopril 10 mg PO DAILY 03/19/17 [History] metFORMIN HCl [Metformin HCl] 850 mg PO BID 03/19/17 [History] Brimonidine Tartrate [Brimonidine Tartrate 0.2% Ophth Soln] 1 drop EYEBOTH BID 03/31/17 [History] Dorzolamide [Trusopt 2% Ophth Soln] 1 drop EYEBOTH BID 03/31/17 [History] Acetaminophen 650 mg PO Q4H PRN 01/26/19 [History] Dextran 70/Hypromellose [Artificial Tears] 1 drop EYEBOTH Q4H PRN 01/26/19 [ History] guaiFENesin/Dextromethorphan [Guaifenesin Dm Syrup] 2 tsp PO Q4H PRN 01/26/19 [ History] Past Medical History HEENT History: Reports: Other (See Below) Other HEENT History: BLIND IN LEFT EYE, 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 Cardiovascular History: Reports: High Cholesterol, Hypertension Genitourinary History: Reports: Urinary Incontinence Neurological History: Reports: CVA, TIA Psychiatric History: Reports: Anxiety Endocrine/Metabolic History: Reports: Diabetes, Type II Other Endocrine/Metabolic History: VITAMIN B 12 DEFICIENCY Hematologic History: Reports: B12 Deficiency, Other (See Below) Other Hematologic History: hypo-osmolality, hyponatremia - Past Surgical History Cardiovascular Surgical History: Reports: Carotid Endarterectomy GI Surgical History: Reports: Appendectomy Social & Family History - Tobacco Use Smoking Status *Q: Current Some Day Smoker Years of Tobacco use: 55 Packs/Tins Daily: 0.2 - Caffeine Use Caffeine Use: Reports: Coffee - Recreational Drug Use Recreational Drug Use: No - Living Situation & Occupation Living situation: Reports: Single, Alone Occupation: Retired ED ROS GENERAL - Review of Systems Review Of Systems: See Below Constitutional: Reports: Malaise, Weakness, Fatigue, Decreased Appetite. Denies : Fever, Chills HEENT: Denies: Ear Pain, Sinus Problem, Throat Pain Respiratory: Reports: Cough. Denies: Shortness of Breath Cardiovascular: Reports: Edema. Denies: Chest Pain, Lightheadedness Endocrine: Reports: Fatigue GI/Abdominal: Denies: Abdominal Pain, Constipation, Diarrhea, Nausea, Vomiting : Reports: Incontinence Musculoskeletal: Reports: No Symptoms Skin: Reports: No Symptoms Neurological: Reports: Confusion, Weakness ED EXAM, GENERAL - Physical Exam Exam: See Below Exam Limited By: No Limitations General Appearance: Alert, WD/WN, No Apparent Distress Ears: Normal External Exam, Other (Cerumen impacted to canals) Nose: Normal Inspection, Normal Mucosa, No Blood Throat/Mouth: Normal Inspection, Normal Oropharynx Head: Normocephalic Neck: Normal Inspection, Supple, Non-Tender Respiratory/Chest: No Respiratory Distress, Lungs Clear, Normal Breath Sounds Cardiovascular: Regular Rate, Rhythm GI/Abdominal: Normal Bowel Sounds, Soft, Non-Tender Extremities: Pedal Edema Neurological: Alert, Oriented (oriented to person and place), Memory Loss Recent Events (pre-existing confusion) Skin Exam: Warm, Dry Course - Vital Signs Last Recorded V/S: Last Vital Signs Temp 98.4 F 01/26/19 17:09 Pulse 113 H 01/26/19 17:09 Resp 20 01/26/19 17:09 BP 146/71 H 01/26/19 17:09 Pulse Ox 99 01/26/19 17:09 - Orders/Labs/Meds Orders: Active Orders 24 hr Category Date Time Status Patient Status Manage Transfer [TRANSFER] Routine ADT 01/26/19 18:14 Ordered Chest 1V Frontal [CR] Stat Exams 01/26/19 17:18 Taken UA W/MICROSCOPIC [URIN] Stat Lab 01/26/19 17:18 Ordered Sodium Chloride 0.9% [Normal Saline] 1,000 ml Med 01/26/19 18:00 Active IV ASDIRECTED Resuscitation Status Routine Resus Stat 01/26/19 18:16 Ordered Medication Orders Sodium Chloride (Normal Saline) 1,000 mls @ 125 mls/hr IV ASDIRECTED ANT Last Admin: 01/26/19 18:10 Dose: 125 mls/hr Labs: Laboratory Tests 01/26/19 01/26/19 01/26/19 Range/Units 17:25 17:25 17:25 WBC 17.8 H (5.0-10.0) 10^3/uL RBC 4.22 L (4.50-6.00) 10^6/uL Hgb 12.9 L (14.0-18.0) g/dL Hct 35.7 L (40.0-54.0) % MCV 84.6 (82.0-94.0) fL MCH 30.6 (27.0-32.0) pg MCHC 36.1 (33.0-38.0) g/dL RDW Coeff of Caryn 12.8 (11.0-15.0) % Plt Count 497 H (150-400) 10^3/uL Neut % (Auto) 74.9 (35-85) % Lymph % (Auto) 17.2 (10-55) % [place] % (Auto) 7.4 (0-16) % Eos % (Auto) 0.3 (0-5) % Baso % (Auto) 0.2 (0-3) % Neut # (Auto) 13.32 H (1.80-7.00) 10^3/uL Lymph # (Auto) 3.05 (1.00-4.80) 10^3/uL [place] # (Auto) 1.31 H (0.00-0.80) 10^3/uL Eos # (Auto) 0.06 (0.00-0.45) 10^3/uL Baso # (Auto) 0.04 10^3/uL Sodium 124 L* (136-145) mEq/L Potassium 4.2 (3.5-5.0) mEq/L Chloride 89 L (98-106) mEq/L Carbon Dioxide 19 L (21-32) mmol/L BUN 13 (7-18) mg/dL Creatinine 0.8 (0.7-1.3) mg/dL Est Cr Clr Drug Dosing 85.92 mL/min Estimated GFR (MDRD) > 60 (>=60) mL/min Glucose 137 H D (75-99) mg/dL Calcium 9.3 (8.4-10.1) mg/dL Total Bilirubin 0.5 (0.0-1.0) mg/dL AST 16 (15-37) U/L ALT 19 (12-78) U/L Alkaline Phosphatase 89 (46-116) U/L Troponin I 0.026 (0.00-0.06) ng/mL C-Reactive Protein 1.9 H (0.2-0.8) mg/dL Total Protein 7.4 (6.4-8.2) g/dL Albumin 3.5 (3.4-5.0) g/dL Meds: Medications Generic Name Dose Route Start Last Admin Trade Name Barbara PRN Reason Stop Dose Admin Sodium Chloride 1,000 mls @ 125 mls/hr 01/26/19 18:00 01/26/19 18:10 Normal Saline IV 125 mls/hr ASDIRECTED [facility] Administration - Re-Assessments/Exams Free Text/Narrative Re-Assessment/Exam: 01/26/19 1800 Labs reviewed and discussed with family. Sodium low at 124. WBC is elevated at 17.8, CRP 1.8. Chest xray unremarkable. Awaiting urine. Will admit to acute inpatient for IV normal saline and repeat labs to follow sodium level. Family aware. Agree with plan Departure - Departure Time of Disposition: 18:24 Disposition: Admitted As Inpatient 64 Condition: Fair Clinical Impression: Hyponatremia - Discharge Information *PRESCRIPTION DRUG MONITORING PROGRAM REVIEWED*: No *COPY OF PRESCRIPTION DRUG MONITORING REPORT IN PATIENT FERNANDO: No Referrals: PCP,Unknown [Primary Care Provider] - Forms: ED Department Discharge Additional Instructions: - Problem List & Annotations (1) Weakness SNOMED Code(s): 28777007 Code(s): R53.1 - WEAKNESS Status: Acute Priority: High Current Visit: Yes (2) Hyponatremia SNOMED Code(s): 12222928 Code(s): E87.1 - HYPO-OSMOLALITY AND HYPONATREMIA Status: Acute Priority : High Current Visit: Yes (3) Diabetes mellitus SNOMED Code(s): 79128112 Code(s): E11.9 - TYPE 2 DIABETES MELLITUS WITHOUT COMPLICATIONS Status: Chronic Priority: High Current Visit: Yes Qualifiers: Diabetes mellitus type: type 2 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 Diabetes mellitus complication status: with unspecified complications Qualified Code(s): E11.8 - Type 2 diabetes mellitus with unspecified complications (4) Palliative care patient SNOMED Code(s): 039356018 Code(s): Z51.5 - ENCOUNTER FOR PALLIATIVE CARE Status: Acute Priority: High Current Visit: Yes - Problem List Review Problem List Initiated/Reviewed/Updated: Yes - My Orders Last 24 Hours: My Active Orders 01/26/19 17:18 Chest 1V Frontal [CR] Stat UA W/MICROSCOPIC [URIN] Stat 01/26/19 18:00 Sodium Chloride 0.9% [Normal Saline] 1,000 ml IV ASDIRECTED 01/26/19 18:14 Patient Status Manage Transfer [TRANSFER] Routine 01/26/19 18:16 Resuscitation Status Routine - Assessment/Plan Admission H&P: Please use this note as an admission H&P Last 24 Hours: My Active Orders 01/26/19 17:18 Chest 1V Frontal [CR] Stat UA W/MICROSCOPIC [URIN] Stat 01/26/19 18:00 Sodium Chloride 0.9% [Normal Saline] 1,000 ml IV ASDIRECTED 01/26/19 18:14 Patient Status Manage Transfer [TRANSFER] Routine 01/26/19 18:16 Resuscitation Status Routine Assessment:: Hyponatremia Weakness Palliative Care
[2019-01-26] MEDS: Sodium Chloride 0.9% 1,000 ML IV SCH (18:10)
[2019-01-26] MEDS ORDERED: Sodium Chloride 0.9% 10 ML Syringe FLUSH PRN (18:49)
[2019-01-26] MEDS ORDERED: guaiFENesin/Dextromethorphan 100-10 MG/5 ML Soln 5 ML Cup PO PRN (18:49)
[2019-01-26] MEDS ORDERED: Acetaminophen 325 MG Tab PO PRN ×2 (18:49)
[2019-01-26] MEDS ORDERED: Ondansetron 4 MG Tab.DIS PO PRN (18:49)
[2019-01-26] MEDS ORDERED: Polyvinyl Alcohol 1.4% Ophth Soln 15 ML Bottle EYEBOTH PRN (18:49)
[2019-01-26] MEDS ORDERED: Enoxaparin 30 MG/0.3 ML Syringe SUBCUT SCH (18:49)
[2019-01-26] MEDS: Brimonidine 0.2% Ophth Soln 5 ML Bottle EYEBOTH SCH (20:05)
[2019-01-26] MEDS: metFORMIN 500 MG Tab PO SCH (20:06)
[2019-01-26] MEDS: Timolol Maleate 0.5% Ophth Soln 5 ML Bottle EYEBOTH SCH (20:07)
[2019-01-26] MEDS: Enoxaparin 40 MG/0.4 ML Syringe SUBCUT SCH (20:07)
[2019-01-26] MEDS: Latanoprost 0.005% Ophth Soln 2.5 ML Bottle EYEBOTH SCH (20:09)
[2019-01-27] MEDS: Sodium Chloride 0.9% 1,000 ML IV SCH ×3 (00:30→19:20)
[2019-01-27 07:28] LABS: CHLORIDE,CL 93 mEq/L (98-106); SODIUM,NA 128 mEq/L (136-145)
[2019-01-27] MEDS: Clopidogrel 75 MG Tab PO SCH (08:23)
[2019-01-27] MEDS: metFORMIN 500 MG Tab PO SCH (08:23)
[2019-01-27] MEDS: atorvaSTATin 20 MG Tab PO SCH (08:23)
[2019-01-27] MEDS: Lisinopril 10 MG Tab PO SCH (08:23)
[2019-01-27] MEDS: Cholecalciferol (Vitamin D3) 1,000 Unit Tab PO SCH (08:25)
[2019-01-27] MEDS: DORZOLAMIDE 2% EYEBOTH SCH ×3 (08:40→19:58)
[2019-01-27] MEDS: Cyanocobalamin (Vitamin B12) 100 MCG Tab PO SCH (08:40)
[2019-01-27] MEDS: Timolol Maleate 0.5% Ophth Soln 5 ML Bottle EYEBOTH SCH ×2 (08:45→20:01)
[2019-01-27] MEDS: Brimonidine 0.2% Ophth Soln 5 ML Bottle EYEBOTH SCH ×2 (09:46→19:56)
[2019-01-27] MEDS ORDERED: Iopamidol 755 Mg/ML 100 ML Bottle IVPUSH ONE (10:01)
[2019-01-27] MEDS ORDERED: Barium Sulfate Oral Susp 450 ML Bottle PO ONE (10:06)
[2019-01-27] MEDS: Enoxaparin 40 MG/0.4 ML Syringe SUBCUT SCH (19:59)
[2019-01-27] MEDS: Latanoprost 0.005% Ophth Soln 2.5 ML Bottle EYEBOTH SCH (20:04)
--- NOTE | 2019-01-27 21:58 | PCM.PN ---
- General Info Date of Service: 01/27/19 Admission Dx/Problem (Free Text): Hyponatremia Functional Status: Reports: Pain Controlled, Tolerating Diet. Denies: Ambulating - Review of Systems General: Reports: Weakness, Fatigue. Denies: Fever HEENT: Reports: No Symptoms Pulmonary: Reports: Cough (states cough improved). Denies: Shortness of Breath , Sputum Cardiovascular: Denies: Chest Pain, Edema, Lightheadedness Gastrointestinal: Denies: Abdominal Pain, Nausea, Vomiting Musculoskeletal: Denies: Leg Pain Skin: Reports: No Symptoms Neurological: Reports: Weakness - Patient Data Vitals - Most Recent: Last Vital Signs Temp 98.4 F 01/27/19 20:00 Pulse 97 01/27/19 20:00 Resp 16 01/27/19 20:00 BP 160/82 H 01/27/19 20:00 Pulse Ox 99 01/27/19 20:00 Weight - Most Recent: 188 lb 11.2 oz I&O - Last 24 Hours: Intake & Output 01/27/19 01/27/19 01/27/19 06:59 14:59 22:59 Intake Total 992 1000 1240 Output Total 750 Balance 242 1000 1240 Lab Results Last 24 Hours: Laboratory Results - last 24 hr 01/27/19 01/27/19 01/27/19 Range/Units 07:15 07:15 08:22 WBC 14.7 H (5.0-10.0) 10^3/uL RBC 4.58 (4.50-6.00) 10^6/uL Hgb 13.0 L (14.0-18.0) g/dL Hct 39.2 L (40.0-54.0) % MCV 85.6 (82.0-94.0) fL MCH 28.4 (27.0-32.0) pg MCHC 33.2 (33.0-38.0) g/dL RDW Coeff of Caryn 13.0 (11.0-15.0) % Plt Count 521 H (150-400) 10^3/uL Neut % (Auto) 77.9 (35-85) % Lymph % (Auto) 14.4 (10-55) % [place] % (Auto) 7.3 (0-16) % Eos % (Auto) 0.3 (0-5) % Baso % (Auto) 0.1 (0-3) % Neut # (Auto) 11.47 H (1.80-7.00) 10^3/uL Lymph # (Auto) 2.12 (1.00-4.80) 10^3/uL [place] # (Auto) 1.07 H (0.00-0.80) 10^3/uL Eos # (Auto) 0.05 (0.00-0.45) 10^3/uL Baso # (Auto) 0.02 10^3/uL Sodium 128 L (136-145) mEq/L Potassium 4.1 (3.5-5.0) mEq/L Chloride 93 L (98-106) mEq/L Carbon Dioxide 24 (21-32) mmol/L BUN 9 (7-18) mg/dL Creatinine 0.7 (0.7-1.3) mg/dL Est Cr Clr Drug Dosing 69.44 mL/min Estimated GFR (MDRD) > 60 (>=60) mL/min Glucose 134 H (75-99) mg/dL POC Glucose 122 H (75-105) mg/dl Calcium 8.8 (8.4-10.1) mg/dL C-Reactive Protein 1.5 H (0.2-0.8) mg/dL 01/27/19 01/27/19 01/27/19 Range/Units 11:24 18:02 20:14 WBC (5.0-10.0) 10^3/uL RBC (4.50-6.00) 10^6/uL Hgb (14.0-18.0) g/dL Hct (40.0-54.0) % MCV (82.0-94.0) fL MCH (27.0-32.0) pg MCHC (33.0-38.0) g/dL RDW Coeff of Caryn (11.0-15.0) % Plt Count (150-400) 10^3/uL Neut % (Auto) (35-85) % Lymph % (Auto) (10-55) % [place] % (Auto) (0-16) % Eos % (Auto) (0-5) % Baso % (Auto) (0-3) % Neut # (Auto) (1.80-7.00) 10^3/uL Lymph # (Auto) (1.00-4.80) 10^3/uL [place] # (Auto) (0.00-0.80) 10^3/uL Eos # (Auto) (0.00-0.45) 10^3/uL Baso # (Auto) 10^3/uL Sodium (136-145) mEq/L Potassium (3.5-5.0) mEq/L Chloride (98-106) mEq/L Carbon Dioxide (21-32) mmol/L BUN (7-18) mg/dL Creatinine (0.7-1.3) mg/dL Est Cr Clr Drug Dosing mL/min Estimated GFR (MDRD) (>=60) mL/min Glucose (75-99) mg/dL POC Glucose 141 H 139 H 118 H (75-105) mg/dl Calcium (8.4-10.1) mg/dL C-Reactive Protein (0.2-0.8) mg/dL Med Orders - Current: Current Medications Acetaminophen (Tylenol) 650 mg PO Q4H PRN PRN Reason: Pain (Mild 1-3)/fever Artificial Tears (Liquitears 1.4% Ophth Soln) 0 ml EYEBOTH Q4H PRN PRN Reason: Dry Eyes Atorvastatin Calcium (Lipitor) 40 mg PO DAILY [facility] Last Admin: 01/27/19 08:23 Dose: 40 mg Brimonidine Tartrate (Alphagan 0.2% Ophth Soln) 0 ml EYEBOTH BID [facility] Last Admin: 01/27/19 19:56 Dose: 1 drop Cholecalciferol (Vitamin D3) 5,000 units PO DAILY [facility] Last Admin: 01/27/19 08:25 Dose: 5,000 units Clopidogrel Bisulfate (Plavix) 75 mg PO DAILY [facility] Last Admin: 01/27/19 08:23 Dose: 75 mg Cyanocobalamin (Vitamin B12) 1,000 mcg PO DAILY [facility] Last Admin: 01/27/19 08:40 Dose: 1,000 mcg Enoxaparin Sodium (Lovenox) 40 mg SUBCUT Q24H [facility] Last Admin: 01/27/19 19:59 Dose: 40 mg Guaifenesin/Phenylephrine HCl (Robitussin Dm) 10 ml PO Q4H PRN PRN Reason: Cough Sodium Chloride (Normal Saline) 1,000 mls @ 125 mls/hr IV ASDIRECTED [facility] Last Admin: 01/27/19 19:20 Dose: 125 mls/hr Latanoprost (Xalatan 0.005% Ophth Soln) 0 ml EYEBOTH BEDTIME [facility] Last Admin: 01/27/19 20:04 Dose: 1 drop Lisinopril (Prinivil) 10 mg PO DAILY [facility] Last Admin: 01/27/19 08:23 Dose: 10 mg Metformin HCl (Glucophage) 850 mg PO BID [facility] Last Admin: 01/27/19 08:23 Dose: 850 mg Ptom Dorzolamide [Trusopt] 2% Ophth Soln 1 drop EYEBOTH BID [facility] Last Admin: 01/27/19 19:58 Dose: 1 drop Ondansetron HCl (Zofran Odt) 4 mg PO Q4H PRN PRN Reason: nausea, able to take PO Sodium Chloride (Saline Flush) 10 ml FLUSH ASDIRECTED PRN PRN Reason: Keep Vein Open Timolol Maleate (Timoptic 0.5% Ophth Soln) 0 ml EYEBOTH BID [facility] Last Admin: 01/27/19 20:01 Dose: 1 drop Discontinued Medications Acetaminophen (Tylenol) 650 mg PO Q4H PRN PRN Reason: Pain/Fever Barium Sulfate (Readi-Cat 2) 900 ml PO ONETIME ONE Stop: 01/27/19 10:07 Last Admin: 01/27/19 12:17 Dose: 900 ml Enoxaparin Sodium (Lovenox) 30 mg SUBCUT Q24H [facility] Last Admin: 01/26/19 19:26 Dose: Not Given Iopamidol (Isovue-370 (76%)) 100 ml IVPUSH ONETIME ONE Stop: 01/27/19 10:02 Last Admin: 01/27/19 12:16 Dose: 100 ml - Exam General: Alert, Oriented (person and place), Cooperative HEENT: Mucous Membr. Moist/[place] Neck: Supple Lungs: Clear to Auscultation, Normal Respiratory Effort Cardiovascular: Regular Rate, Regular Rhythm GI/Abdominal Exam: Normal Bowel Sounds, Soft, Non-Tender Extremities: Normal Inspection, No Pedal Edema Skin: Warm, Dry Neurological: No New Focal Deficit - Problem List & Annotations (1) Weakness SNOMED Code(s): 40730746 Code(s): R53.1 - WEAKNESS Status: Acute Priority: High Current Visit: Yes (2) Hyponatremia SNOMED Code(s): 18711580 Code(s): E87.1 - HYPO-OSMOLALITY AND HYPONATREMIA Status: Acute Priority : High Current Visit: Yes (3) Diabetes mellitus SNOMED Code(s): 95219048 Code(s): E11.9 - TYPE 2 DIABETES MELLITUS WITHOUT COMPLICATIONS Status: Chronic Priority: High Current Visit: Yes Qualifiers: Diabetes mellitus type: type 2 Diabetes mellitus long-term insulin 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 Diabetes mellitus complication status: with unspecified complications Qualified Code(s): E11.8 - Type 2 diabetes mellitus with unspecified complications (4) Palliative care patient SNOMED Code(s): 780467817 Code(s): Z51.5 - ENCOUNTER FOR PALLIATIVE CARE Status: Acute Priority: High Current Visit: Yes - Problem List Review Problem List Initiated/Reviewed/Updated: Yes - My Orders Last 24 Hours: My Active Orders 01/27/19 07:00 OSMOLALITY - SERUM [REF] Routine 01/27/19 08:00 Cholecalciferol (Vitamin D3) [Vitamin D3] 5,000 units PO DAILY Clopidogrel [Plavix] 75 mg PO DAILY Cyanocobalamin (Vitamin B12) [Vitamin B12] 1,000 mcg PO DAILY Lisinopril [Prinivil] 10 mg PO DAILY atorvaSTATin [Lipitor] 40 mg PO DAILY 01/27/19 09:06 Abdomen Pelvis w Cont [CT] Routine Chest w Cont [CT] Routine 01/27/19 09:08 OSMOLALITY - URINE Routine SODIUM, URINE RAND/24HR Routine 01/27/19 Breakfast Consistent Carbohydrate Diet [DIET] - Assessment Assessment:: Hyponatremia - Plan Plan:: Patient more alert and active this am. Denies any pain. Cough improved, moist yet nonproductive. Lung sounds are clear. No edema. Labs note increase of sodium from 124 to 128. WBC is improved, yet to find source of elevation. CRP stable at 1.5. Blood sugars are stable. Will continue with IV normal saline. Urine and serum osmolality, spot sodium random urine. CT scan of chest, abdomen and pelvis to investigate cause of low sodium. Repeat labs in am.
[2019-01-28] MEDS: Sodium Chloride 0.9% 1,000 ML IV SCH (02:58)
[2019-01-28 07:42] LABS: CHLORIDE,CL 96 mEq/L (98-106); SODIUM,NA 130 mEq/L (136-145)
[2019-01-28] MEDS: Cholecalciferol (Vitamin D3) 1,000 Unit Tab PO SCH (07:47)
[2019-01-28] MEDS: atorvaSTATin 20 MG Tab PO SCH (07:48)
[2019-01-28] MEDS: Clopidogrel 75 MG Tab PO SCH (07:50)
[2019-01-28] MEDS: Lisinopril 10 MG Tab PO SCH (07:50)
[2019-01-28] MEDS: Cyanocobalamin (Vitamin B12) 100 MCG Tab PO SCH (07:51)
[2019-01-28 07:52] VITALS: BP 168/88
[2019-01-28] MEDS: Brimonidine 0.2% Ophth Soln 5 ML Bottle EYEBOTH SCH (07:52)
[2019-01-28] MEDS: DORZOLAMIDE 2% EYEBOTH SCH (07:52)
[2019-01-28] MEDS: Timolol Maleate 0.5% Ophth Soln 5 ML Bottle EYEBOTH SCH (07:52)
--- NOTE | 2019-01-28 15:16 | PCM.DCSUM1 ---
Discharge Summary - Hospital Course Free Text/Narrative:: Patient presented to ER with complaints of leg weakness. Had been out from the [facility] for 24 hours with family. Had been in [place] to see his eye doctor but was so weak, was unable to get out of there car so they presented back to [place]. He did fall x2 last evening at his sister's home. No injury. History of CVA, has been a resident at the home for 2 years. no stroke symptoms. EKG stable. Labs in ER show sodium level of 124. Admitted and started on IV normal saline. Diagnosis: Stroke: No Modified Garrard Scale: No Symptoms at All Modified Garrard Scale Score: 0 - Discharge Data Discharge Date: 01/28/19 Discharge Disposition: Home, Self-Care 01 Condition: Fair - Discharge Diagnosis/Problem(s) (1) Weakness SNOMED Code(s): 40708504 ICD Code: R53.1 - WEAKNESS Status: Acute Priority: High (2) Hyponatremia SNOMED Code(s): 21444599 ICD Code: E87.1 - HYPO-OSMOLALITY AND HYPONATREMIA Status: Acute Priority : High (3) Diabetes mellitus SNOMED Code(s): 41195359 ICD Code: E11.9 - TYPE 2 DIABETES MELLITUS WITHOUT COMPLICATIONS Status: Chronic Priority: High Qualifiers: Diabetes mellitus type: type 2 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 He is up to bathroom with 2 staff. Legs are still weak but improved compared to admit. [facility] reports has had increasing weakness for the last week or so. Has been afebrile. CT scan of chest, abdomen and pelvis done due to hyponatremia. All normal. Sodium improved to 130 today. Sodium and serum osmolality obtained, random spot urine. Awaiting results. Blood pressure has been elevated, will start Norvasc 5 mg at bedtime in addition to his Lisinopril. Have repeat BMP in 2 weeks at the [facility]. - Patient Instructions Diet: Diabetic Diet Activity: As Tolerated Other/Special Instructions: BMP in 2 weeks. Monitor blood pressure BID and report readings to Dr. Barber in one week - Discharge Plan *PRESCRIPTION DRUG MONITORING PROGRAM REVIEWED*: No *COPY OF PRESCRIPTION DRUG MONITORING REPORT IN PATIENT FERNANDO: No Prescriptions/Med Rec: amLODIPine [Norvasc] 5 mg PO BEDTIME #30 tab Home Medications: Home Meds Clopidogrel [Plavix] 75 mg PO DAILY 01/11/14 [History] Cyanocobalamin (Vitamin B-12) [Vitamin B-12] 1,000 mcg PO DAILY 01/11/14 [ History] Latanoprost 1 drop EYEBOTH BEDTIME 01/11/14 [History] Timolol Maleate [Timoptic 0.5% Ophth Soln] 1 drop EYEBOTH BID 01/11/14 [History] atorvaSTATin [Lipitor] 40 mg PO DAILY 01/11/14 [History] Cholecalciferol (Vitamin D3) [Vitamin D3] 5,000 unit PO DAILY 03/19/17 [History] Lisinopril 10 mg PO DAILY 03/19/17 [History] metFORMIN HCl [Metformin HCl] 850 mg PO BID 03/19/17 [History] Brimonidine Tartrate [Brimonidine Tartrate 0.2% Ophth Soln] 1 drop EYEBOTH BID 03/31/17 [History] Dorzolamide [Trusopt 2% Ophth Soln] 1 drop EYEBOTH BID 03/31/17 [History] Acetaminophen 650 mg PO Q4H PRN 01/26/19 [History] Dextran 70/Hypromellose [Artificial Tears] 1 drop EYEBOTH Q4H PRN 01/26/19 [ History] guaiFENesin/Dextromethorphan [Guaifenesin Dm Syrup] 2 tsp PO Q4H PRN 01/26/19 [ History] amLODIPine [Norvasc] 5 mg PO BEDTIME #30 tab 01/28/19 [Rx] Forms: ED Department Discharge Referrals: PCP,Unknown [Primary Care Provider] - - Discharge Summary/Plan Comment DC Time >30 min.: No - General Info Date of Service: 01/28/19 Admission Dx/Problem (Free Text: Hyponatremia Functional Status: Reports: Pain Controlled, Tolerating Diet. Denies: Ambulating - Review of Systems General: Reports: Weakness, Fatigue HEENT: Reports: Rhinitis Pulmonary: Denies: Shortness of Breath, Sputum Cardiovascular: Denies: Chest Pain, Edema, Lightheadedness Gastrointestinal: Denies: Abdominal Pain, Nausea, Vomiting Genitourinary: Reports: Incontinence Musculoskeletal: Reports: No Symptoms Skin: Reports: No Symptoms Neurological: Reports: No Symptoms Psychiatric: Reports: No Symptoms - Patient Data Vitals - Most Recent: Last Vital Signs Temp 97.7 F 01/28/19 08:00 Pulse 83 01/28/19 08:00 Resp 18 01/28/19 08:00 BP 168/88 H 01/28/19 08:00 Pulse Ox 100 01/28/19 08:00 Weight - Most Recent: 188 lb 11.2 oz I&O - Last 24 hours: Intake & Output 01/28/19 01/28/19 01/28/19 06:59 14:59 22:59 Intake Total 1444 Output Total 400 Balance 1044 Lab Results - Last 24 hrs: Laboratory Results - last 24 hr 01/27/19 01/27/19 01/27/19 Range/Units 07:00 18:02 20:14 WBC (5.0-10.0) 10^3/uL RBC (4.50-6.00) 10^6/uL Hgb (14.0-18.0) g/dL Hct (40.0-54.0) % MCV (82.0-94.0) fL MCH (27.0-32.0) pg MCHC (33.0-38.0) g/dL RDW Coeff of Caryn (11.0-15.0) % Plt Count (150-400) 10^3/uL Neut % (Auto) (35-85) % Lymph % (Auto) (10-55) % [place] % (Auto) (0-16) % Eos % (Auto) (0-5) % Baso % (Auto) (0-3) % Neut # (Auto) (1.80-7.00) 10^3/uL Lymph # (Auto) (1.00-4.80) 10^3/uL [place] # (Auto) (0.00-0.80) 10^3/uL Eos # (Auto) (0.00-0.45) 10^3/uL Baso # (Auto) 10^3/uL Sodium (136-145) mEq/L Potassium (3.5-5.0) mEq/L Chloride (98-106) mEq/L Carbon Dioxide (21-32) mmol/L BUN (7-18) mg/dL Creatinine (0.7-1.3) mg/dL Est Cr Clr Drug Dosing mL/min Estimated GFR (MDRD) (>=60) mL/min Glucose (75-99) mg/dL POC Glucose 139 H 118 H (75-105) mg/dl Serum Osmolality 233 L (275-295) mosm/kg Calcium (8.4-10.1) mg/dL C-Reactive Protein (0.2-0.8) mg/dL 01/28/19 01/28/19 01/28/19 Range/Units 07:00 07:00 07:57 WBC 13.9 H (5.0-10.0) 10^3/uL RBC 4.17 L (4.50-6.00) 10^6/uL Hgb 12.6 L (14.0-18.0) g/dL Hct 35.9 L (40.0-54.0) % MCV 86.1 (82.0-94.0) fL MCH 30.2 (27.0-32.0) pg MCHC 35.1 (33.0-38.0) g/dL RDW Coeff of Caryn 12.8 (11.0-15.0) % Plt Count 509 H (150-400) 10^3/uL Neut % (Auto) 76.6 (35-85) % Lymph % (Auto) 15.3 (10-55) % [place] % (Auto) 7.4 (0-16) % Eos % (Auto) 0.5 (0-5) % Baso % (Auto) 0.2 (0-3) % Neut # (Auto) 10.65 H (1.80-7.00) 10^3/uL Lymph # (Auto) 2.13 (1.00-4.80) 10^3/uL [place] # (Auto) 1.03 H (0.00-0.80) 10^3/uL Eos # (Auto) 0.07 (0.00-0.45) 10^3/uL Baso # (Auto) 0.03 10^3/uL Sodium 130 L (136-145) mEq/L Potassium 4.5 (3.5-5.0) mEq/L Chloride 96 L (98-106) mEq/L Carbon Dioxide 25 (21-32) mmol/L BUN 6 L (7-18) mg/dL Creatinine 0.7 (0.7-1.3) mg/dL Est Cr Clr Drug Dosing 69.44 mL/min Estimated GFR (MDRD) > 60 (>=60) mL/min Glucose 136 H (75-99) mg/dL POC Glucose 123 H (75-105) mg/dl Serum Osmolality (275-295) mosm/kg Calcium 8.7 (8.4-10.1) mg/dL C-Reactive Protein 0.9 H (0.2-0.8) mg/dL Med Orders - Current: Current Medications Discontinued Medications Acetaminophen (Tylenol) 650 mg PO Q4H PRN PRN Reason: Pain (Mild 1-3)/fever Acetaminophen (Tylenol) 650 mg PO Q4H PRN PRN Reason: Pain/Fever Artificial Tears (Liquitears 1.4% Ophth Soln) 0 ml EYEBOTH Q4H PRN PRN Reason: Dry Eyes Atorvastatin Calcium (Lipitor) 40 mg PO DAILY [facility] Last Admin: 01/28/19 07:48 Dose: 40 mg Barium Sulfate (Readi-Cat 2) 900 ml PO ONETIME ONE Stop: 01/27/19 10:07 Last Admin: 01/27/19 12:17 Dose: 900 ml Brimonidine Tartrate (Alphagan 0.2% Ophth Soln) 0 ml EYEBOTH BID [facility] Last Admin: 01/28/19 07:52 Dose: 1 drop Cholecalciferol (Vitamin D3) 5,000 units PO DAILY [facility] Last Admin: 01/28/19 07:47 Dose: 5,000 units Clopidogrel Bisulfate (Plavix) 75 mg PO DAILY [facility] Last Admin: 01/28/19 07:50 Dose: 75 mg Cyanocobalamin (Vitamin B12) 1,000 mcg PO DAILY [facility] Last Admin: 01/28/19 07:51 Dose: 1,000 mcg Enoxaparin Sodium (Lovenox) 30 mg SUBCUT Q24H [facility] Last Admin: 01/26/19 19:26 Dose: Not Given Enoxaparin Sodium (Lovenox) 40 mg SUBCUT Q24H [facility] Last Admin: 01/27/19 19:59 Dose: 40 mg Guaifenesin/Phenylephrine HCl (Robitussin Dm) 10 ml PO Q4H PRN PRN Reason: Cough Sodium Chloride (Normal Saline) 1,000 mls @ 125 mls/hr IV ASDIRECTED [facility] Last Admin: 01/28/19 02:58 Dose: 125 mls/hr Iopamidol (Isovue-370 (76%)) 100 ml IVPUSH ONETIME ONE Stop: 01/27/19 10:02 Last Admin: 01/27/19 12:16 Dose: 100 ml Latanoprost (Xalatan 0.005% Ophth Soln) 0 ml EYEBOTH BEDTIME [facility] Last Admin: 01/27/19 20:04 Dose: 1 drop Lisinopril (Prinivil) 10 mg PO DAILY [facility] Last Admin: 01/28/19 07:50 Dose: 10 mg Metformin HCl (Glucophage) 850 mg PO BID [facility] Last Admin: 01/27/19 08:23 Dose: 850 mg Ptom Dorzolamide [Trusopt] 2% Ophth Soln 1 drop EYEBOTH BID [facility] Last Admin: 01/28/19 07:52 Dose: 1 drop Ondansetron HCl (Zofran Odt) 4 mg PO Q4H PRN PRN Reason: nausea, able to take PO Sodium Chloride (Saline Flush) 10 ml FLUSH ASDIRECTED PRN PRN Reason: Keep Vein Open Timolol Maleate (Timoptic 0.5% Ophth Soln) 0 ml EYEBOTH BID [facility] Last Admin: 01/28/19 07:52 Dose: 1 drop - Exam General: Reports: Alert, Oriented HEENT: Reports: Mucous Membr. Moist/[place]: Reports: Supple Lungs: Reports: Clear to Auscultation, Normal Respiratory Effort Cardiovascular: Reports: Regular Rate, Regular Rhythm, Murmurs GI/Abdominal Exam: Normal Bowel Sounds, Soft, Non-Tender Extremities: Normal Inspection, No Pedal Edema Skin: Reports: Warm, Dry Neurological: Reports: No New Focal Deficit
== END 2019-01-28 09:40 | disposition home or self-care (01) | DRG 641 ==
LOC: CC.ED 17:00 → CC.MS 18:16 → UNDOADMIN 18:30 → CC.MS 18:30
PROVIDERS: ADMIT Physician Assistant Medical; ATTEND Family Medicine
DX: E87.1 Hypo-osmolality and hyponatremia (principal); E11.9 Type 2 diabetes mellitus without complications; Z51.5 Encounter for palliative care; H54.62 Unqualified visual loss, left eye, normal vision right eye; E78.00 Pure hypercholesterolemia, unspecified; I10 Essential (primary) hypertension; F41.9 Anxiety disorder, unspecified; E53.8 Deficiency of other specified B group vitamins; F17.210 Nicotine dependence, cigarettes, uncomplicated; Z86.73 Personal history of transient ischemic attack (TIA), and cerebral infarction without residual deficits; Z79.84 Long term (current) use of oral hypoglycemic drugs; Z79.899 Other long term (current) drug therapy; Z90.49 Acquired absence of other specified parts of digestive tract
CPT/HCPCS: 36415; 71045; 71260; 74177; 80048; 80053; 81001; 82962; 83930; 83935; 84300; 84484; 85025; 86140; 93005; 99285-25; A9270-GY; J1650; J7030; Q9967

== ENCOUNTER 2021-09-17 11:26 | Inpatient (IN) | payer MEDICARE, MEDICAID ==
[2021-09-17 11:50] LABS: CHLORIDE,CL 102 mEq/L (98-106); SODIUM,NA 140 mEq/L (136-145)
[2021-09-17] MEDS ORDERED: Sodium Chloride 0.9% 1,000 ML IV ONE (12:29)
[2021-09-17] MEDS ORDERED: Acetaminophen 325 MG Tab PO PRN ×2 (12:37→12:47)
[2021-09-17] MEDS: Sodium Chloride 0.9% 1,000 ML IV SCH ×2 (12:45→16:55)
--- NOTE | 2021-09-17 13:54 | PCM.HP.2 ---
H&P History of Present Illness - General Date of Service: 09/17/21 Admit Problem/Dx: Admission Diagnosis/Problem Admission Diagnosis/Problem Wound of right lower extremity PAD Elevated WBCs Elevated Serum Creatinine Pressure Ulcer Coccyx, Stage III Dehydration Source of Information: Patient, Family, Snf Records, Old Records, Provi gt History Limitations: Reports: Altered Mental Status - History of Present Illness Initial Comments - Free Text/Narative: Direct Admit from clinic. Snf patient with cool lower extremities, hx PAD, wound on dorsum right foot consistent in appearance with arterial ulcer. Snf reported pedal edema, Lasix was ordered, edema gone. Wound present after edema gone. Worsening per [facility] report. Recently finished Bactrim. Onset of Symptoms: Reports: Unknown/Unsure (uncertain of onset and date, has been treated at [facility] for over a week) Duration of Symptoms: Reports: Getting Worse Location: Reports: Lower Extremity, Right Quality: Reports: Other (No c/o pain) - Related Data Allergies/Adverse Reactions: Allergies Allergy/AdvReac Type Severity Reaction Status Date / Time No Known Allergies Allergy Verified 01/26/19 17:09 Home Medications: Home Meds Clopidogrel [Plavix] 75 mg PO DAILY 01/11/14 [History] Cyanocobalamin (Vitamin B-12) [Vitamin B-12] 1,000 mcg PO DAILY 01/11/14 [History] Latanoprost 1 drop EYEBOTH BEDTIME 01/11/14 [History] atorvaSTATin [Lipitor] 40 mg PO DAILY 01/11/14 [History] timoloL maleate [Timoptic 0.5 % O/S 15 ML] 1 drop EYEBOTH BID 01/11/14 [History] Cholecalciferol (Vitamin D3) [Vitamin D3] 5,000 unit PO DAILY 03/19/17 [History] Lisinopril 10 mg PO DAILY 03/19/17 [History] metFORMIN HCl [Metformin HCl] 850 mg PO BID 03/19/17 [History] Brimonidine Tartrate [Brimonidine Tartrate 0.2% Ophth Soln] 1 drop EYEBOTH BID 03/31/17 [History] Dorzolamide [Trusopt 2% Ophth Soln] 1 drop EYEBOTH BID 03/31/17 [History] Acetaminophen 650 mg PO Q4H PRN 01/26/19 [History] amLODIPine [Norvasc] 5 mg PO BEDTIME #30 tab 01/28/19 [Rx] Amino Acids/Protein Hydrolys [Liquacel Liquid Protein] 1 packet PO DAILY 07/09/21 [History] Carboxymethylcellulose Sodium [Refresh Tears] 1 drop EYEBOTH BID 07/09/21 [Histo ry] Magnesium Chloride [Slow-Mag] 1 tab PO TID 07/09/21 [History] Past Medical History HEENT History: Reports: Other (See Below) Other HEENT History: BLIND IN LEFT EYE, 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 Cardiovascular History: Reports: High Cholesterol, Hypertension Genitourinary History: Reports: Urinary Incontinence Neurological History: Reports: CVA, TIA Psychiatric History: Reports: Anxiety Endocrine/Metabolic History: Reports: Diabetes, Type II Other Endocrine/Metabolic History: VITAMIN B 12 DEFICIENCY Hematologic History: Reports: B12 Deficiency, Other (See Below) Other Hematologic History: hypo-osmolality, hyponatremia - Past Surgical History Cardiovascular Surgical History: Reports: Carotid Endarterectomy GI Surgical History: Reports: Appendectomy Social & Family History - Caffeine Use Caffeine Use: Reports: Coffee - Living Situation & Occupation Living situation: Reports: Single, Alone Occupation: Retired H&P Review of Systems - Review of Systems: Review Of Systems: Comprehensive ROS is negative, except as noted in HPI. Exam - Exam Exam: See Below - Exam General: Alert, Cooperative, Other (Somewhat slow to respond, hx CVA) HEENT: Conjunctiva Clear, EOMI, Hearing Intact, Nares Patent, Other (Left eye with cloudiness, has cataract and glaucoma per his sister) Neck: Supple, Trachea Midline Lungs: Clear to Auscultation, Normal Respiratory Effort Cardiovascular: Regular Rate, Regular Rhythm GI/Abdominal Exam: Normal Bowel Sounds, Soft, Non-Tender, No Distention Back Exam: Normal Inspection Extremities: No Pedal Edema, Slow Capillary Refill, Redness (right foot only), Other (coolness, right>left. Doppler pulses difficult to obtain, faintly heard at times.) Skin: Dry, Decubitis (stage III Sacrum, 0.4cm x 0.8cm, tunneling present, see nurse notes) Neurological: Other (At baseline, hx CVA, is weak) Neuro Extensive - Mental Status: Alert, Normal Mood/Affect, Other (at baseline, hx cva) Neuro Extensive - Motor, Sensory, Reflexes: Other (Hx cva, weak, at baseline) Psychiatric: Alert, Normal Affect, Normal Mood - Patient Data Lab Results Last 24 hrs: Laboratory Results - last 24 hr 09/17/21 09/17/21 Range/Units 11:33 11:33 WBC 17.4 H (4.0-11.0) 10^3/uL RBC 3.50 L (4.50-6.00) x10^6/uL Hgb 10.5 L (14.0-18.0) g/dL Hct 31.5 L (42.0-52.0) % MCV 90.0 (83.0-97.0) fL MCH 30.0 (27.0-32.0) pg MCHC 33.3 (32.0-36.0) g/dL RDW Coeff of Caryn 14.7 (11.0-15.0) % Plt Count 521 H (150-400) 10^3/uL Immature Gran % (Auto) 0.3 (0.0-4.9) % Neut % (Auto) 89.2 H (41-71) % Lymph % (Auto) 6.2 L (24-44) % [place] % (Auto) 4.1 (0-10) % Eos % (Auto) 0.1 (0-6) % Baso % (Auto) 0.1 (0-1) % Neut # (Auto) 15.51 H (1.80-8.00) x10^3/uL Lymph # (Auto) 1.08 (0.60-5.00) 10^3/uL [place] # (Auto) 0.72 (0.00-1.50) 10^3/uL Eos # (Auto) 0.01 (0.00-1.50) 10^3/uL Baso # (Auto) 0.01 (0.00-0.50) 10^3/uL Immature Gran # (Auto) 0.05 (0.00-0.49) 10^3/uL ESR 15 (0-15) mm/hr Sodium 140 (136-145) mEq/L Potassium 5.1 H D (3.5-5.0) mEq/L Chloride 102 (98-106) mEq/L Carbon Dioxide 24 (21-32) mmol/L BUN 88 H* D (7-18) mg/dL Creatinine 3.6 H* D (0.7-1.3) mg/dL Est Cr Clr Drug Dosing TNP Estimated GFR (MDRD) 17 L (>=60) mL/min Glucose 171 H (75-99) mg/dL Calcium 9.4 (8.4-10.1) mg/dL Magnesium 2.3 (1.8-2.4) mg/dL Total Bilirubin 0.2 (0.0-1.0) mg/dL AST 42 H (15-37) U/L ALT 31 (12-78) U/L Alkaline Phosphatase 91 (46-116) U/L C-Reactive Protein 0.7 (0.2-0.8) mg/dL Total Protein 8.1 (6.4-8.2) g/dL Albumin 3.8 (3.4-5.0) g/dL Result Diagrams: 09/17/21 11:33 09/17/21 11:33 - Problem List (1) Hypotension SNOMED Code(s): 11800091 ICD Code: I95.9 - HYPOTENSION, UNSPECIFIED Status: Acute Current Visit: Yes (2) Pressure ulcer of sacral region, stage 3 SNOMED Code(s): 778195776, 941448622 ICD Code: L89.153 - PRESSURE ULCER OF SACRAL REGION, STAGE 3 Status: Acute Current Visit: Yes (3) Elevated serum creatinine SNOMED Code(s): 382962503 ICD Code: R79.89 - OTHER SPECIFIED ABNORMAL FINDINGS OF BLOOD CHEMISTRY Status: Acute Current Visit: Yes (4) Elevated WBCs SNOMED Code(s): 089626853, 323470091 ICD Code: D72.829 - ELEVATED WHITE BLOOD CELL COUNT, UNSPECIFIED Status: Acute Current Visit: Yes (5) Wound of foot SNOMED Code(s): 010100022, 122802222 ICD Code: S91.309A - UNSPECIFIED OPEN WOUND, UNSPECIFIED FOOT, INITIAL ENCOUNTER Status: Acute Current Visit: Yes (6) Weakness SNOMED Code(s): 84889009 ICD Code: R53.1 - WEAKNESS Status: Acute Priority: High Current Visit: No Problem List Initiated/Reviewed/Updated: Yes Orders Last 24hrs: Active Orders 24 hr Category Date Time Status Patient Status [ADT] Routine ADT 09/17/21 12:37 Active Bedrest Bedside Commode [RC] ASDIRECTED Care 09/17/21 12:37 Active Blood Glucose Check, Bedside [RC] WITHMEALSANDBED Care 09/17/21 12:37 Active Cardiac Monitoring [RC] CONTINUOUS Care 09/17/21 12:41 Active Height and Weight [RC] UPON Care 09/17/21 12:37 Active Intake and Output [RC] QSHIFT Care 09/17/21 12:41 Active Oxygen Therapy [RC] PRN Care 09/17/21 12:37 Active VTE/DVT Education [RC] PER UNIT ROUTINE Care 09/17/21 12:37 Active Vital Signs [RC] Q4H Care 09/17/21 12:37 Active Consistent Carbohydrate Diet [DIET] Diet 09/17/21 Dinner Active Foot 2V Rt [CR] Routine Exams 09/17/21 Taken CBC WITH AUTO DIFF [HEME] DAILY Lab 09/18/21 05:00 Ordered COMPREHENSIVE METABOLIC PN,CMP [CHEM] DAILY Lab 09/18/21 05:00 Ordered CULTURE WOUND [RM] Routine Lab 09/17/21 13:04 Received Amino Acids/Protein Hydrolys [Liquacel Liquid Protein] Med 09/18/21 08:00 Pending 1 packet PO DAILY Brimonidine [Alphagan 0.2% Ophth Soln] Med 09/17/21 20:00 Active 0 ml EYEBOTH BID Carboxymethylcellulose Sodium [Refresh Tears] Med 09/17/21 20:00 Pending 1 drop EYEBOTH BID Cholecalciferol (Vitamin D3) [Vitamin D3] Med 09/18/21 08:00 Active 125 mcg PO DAILY Clopidogrel [Plavix] Med 09/18/21 08:00 Active 75 mg PO DAILY Cyanocobalamin (Vitamin B12) [Vitamin B12] Med 09/18/21 08:00 Active 1,000 mcg PO DAILY Dorzolamide [Trusopt 2% Ophth Soln] Med 09/17/21 20:00 Active 0 ml EYEBOTH BID Latanoprost [Xalatan 0.005% Ophth Soln] Med 09/17/21 20:00 Active 0 ml EYEBOTH BEDTIME Magnesium Chloride [Slow-Mag] Med 09/17/21 14:00 Pending 1 tab PO TID Sodium Chloride 0.9% [Normal Saline] 1,000 ml Med 09/17/21 12:45 Active IV ASDIRECTED amLODIPine [Norvasc] Med 09/17/21 20:00 Active 5 mg PO BEDTIME atorvaSTATin [Lipitor] Med 09/18/21 08:00 Active 40 mg PO DAILY cefTRIAXone [Rocephin] Med 09/17/21 13:45 Ordered 1 gm IVPUSH Q24H lisinopriL [Prinivil] Med 09/18/21 08:00 Active 10 mg PO DAILY timoloL maleate [Timoptic 0.5% Ophth Soln] Med 09/17/21 20:00 Active 0 ml EYEBOTH BID Resuscitation Status Routine Resus Stat 09/17/21 12:37 Ordered Medication Orders Amlodipine Besylate (Amlodipine 2.5 Mg Tab) 5 mg PO BEDTIME ANT Atorvastatin Calcium (Atorvastatin 20 Mg Tab) 40 mg PO DAILY [facility] Brimonidine Tartrate (Brimonidine 0.2% Ophth Soln 5 Ml Bottle) 0 ml EYEBOTH BID ANT Ceftriaxone Sodium (Ceftriaxone 1 Gm Vial) 1 gm IVPUSH Q24H ANT Stop: 09/21/21 14:01 Cholecalciferol (Cholecalciferol (Vitamin D3) 25 Mcg Tab) 125 mcg PO DAILY ANT Clopidogrel Bisulfate (Clopidogrel 75 Mg Tab) 75 mg PO DAILY ANT Cyanocobalamin (Cyanocobalamin (Vitamin B12) 1,000 Mcg Tab) 1,000 mcg PO DAILY ANT Dorzolamide HCl (Dorzolamide 2% Ophth Soln 10 Ml Bottle) 0 ml EYEBOTH BID [facility] Sodium Chloride (Normal Saline) 1,000 mls @ 250 mls/hr IV ASDIRECTED ANT Latanoprost (Latanoprost 0.005% Ophth Soln 2.5 Ml Bottle) 0 ml EYEBOTH BEDTIME ANT Lisinopril (Lisinopril 10 Mg Tab) 10 mg PO DAILY [facility] Non-Formulary Medication (Amino Acids/Protein Hydrolys [Liquacel Liquid Protein]) 1 packet PO DAILY [facility] Non-Formulary Medication (Carboxymethylcellulose Sodium [Refresh Tears]) 1 drop EYEBOTH BID [facility] Non-Formulary Medication (Magnesium Chloride [Slow-Mag]) 1 tab PO TID [facility] Timolol Maleate (Timolol Maleate 0.5% Ophth Soln 5 Ml Bottle) 0 ml EYEBOTH BID ANT
--- NOTE | 2021-09-17 14:15 | PCM.SN.2 ---
- Free Text/Narrative Note: Dr. Barber updated regarding labs. Agrees that CTA will be postponed. Telepharmacy consulted regarding creatinine and antibiotics/meds. Pt received 250ml fluid bolus, will run NS at 250ml per hour x one liter, then decrease to 150ml/hr. Cultured wound on sacrum.
[2021-09-17] MEDS: cefTRIAXone 1 GM Vial IVPUSH SCH (14:16)
[2021-09-17] MEDS ORDERED: Sodium Chloride 0.9% 1,000 ML IV SCH (17:00)
[2021-09-17] MEDS: Timolol Maleate 0.5% Ophth Soln 5 ML Bottle EYEBOTH SCH (19:51)
[2021-09-17] MEDS: Latanoprost 0.005% Ophth Soln 2.5 ML Bottle EYEBOTH SCH (19:52)
[2021-09-17] MEDS: amLODIPine 2.5 MG Tab PO SCH (19:53)
[2021-09-17] MEDS: Brimonidine 0.2% Ophth Soln 5 ML Bottle EYEBOTH SCH (19:53)
[2021-09-17] MEDS: Dorzolamide 2% Ophth Soln 10 ML Bottle EYEBOTH SCH (19:54)
[2021-09-18] MEDS: atorvaSTATin 20 MG Tab PO SCH (07:40)
[2021-09-18] MEDS: Cyanocobalamin (Vitamin B12) 1,000 MCG Tab PO SCH (07:40)
[2021-09-18] MEDS: Clopidogrel 75 MG Tab PO SCH (07:40)
[2021-09-18] MEDS: Lisinopril 10 MG Tab PO SCH (07:40)
[2021-09-18] MEDS: Cholecalciferol (Vitamin D3) 25 MCG Tab PO SCH (07:41)
[2021-09-18] MEDS ORDERED: Morphine 2 MG/ML SYRINGE IVPUSH ONE ×2 (07:43→18:10)
[2021-09-18] MEDS ORDERED: Non-Formulary Medication 1 Each (Amino Acids/Protein Hydrolys [Liquacel Liquid Protein] 96 PO SCH (08:00)
[2021-09-18] MEDS: Brimonidine 0.2% Ophth Soln 5 ML Bottle EYEBOTH SCH ×2 (08:09→20:28)
[2021-09-18] MEDS: Timolol Maleate 0.5% Ophth Soln 5 ML Bottle EYEBOTH SCH ×2 (08:28→20:29)
[2021-09-18] MEDS: Dorzolamide 2% Ophth Soln 10 ML Bottle EYEBOTH SCH ×2 (08:29→20:29)
[2021-09-18] MEDS ORDERED: Melatonin 3 MG Tab PO PRN (08:45)
[2021-09-18] MEDS ORDERED: Iopamidol 755 Mg/ML 200 ML Bottle IV ONE (09:19)
--- NOTE | 2021-09-18 09:27 | PCM.PN ---
- General Info Date of Service: 09/18/21 Admission Dx/Problem (Free Text): Right Lower Extremity Wound PAD Elevated Creatinine Elevated WBCs Hypotension Dehydration Pressure Ulcer, Sacrum, Stage III Subjective Update: Creatinine significantly improved after IV fluids. WBCs are lowering. Right foot not as cool as yesterday, cap refill still sluggish, but improved. Nursing staff reports some trouble sleeping last night. Functional Status: Reports: Pain Controlled, Tolerating Diet, Urinating - Review of Systems General: Reports: Weakness HEENT: Reports: Other (has cataract and glaucoma, but no new symptoms) Pulmonary: Reports: No Symptoms Cardiovascular: Reports: No Symptoms Gastrointestinal: Reports: No Symptoms Genitourinary: Reports: No Symptoms Musculoskeletal: Reports: Foot Pain Skin: Reports: Other (wound right foot and sacrum) Neurological: Reports: Other (CVA hx, no new symptoms) Psychiatric: Reports: No Symptoms - Patient Data Vitals - Most Recent: Last Vital Signs Temp 98.3 F 09/18/21 07:50 Pulse 89 09/18/21 07:50 Resp 20 09/18/21 07:50 BP 135/52 L 09/18/21 07:50 Pulse Ox 98 09/18/21 07:50 Weight - Most Recent: 151 lb 12.8 oz I&O - Last 24 Hours: Intake & Output 09/17/21 09/18/21 09/18/21 22:59 06:59 14:59 Intake Total 400 1250 Output Total 300 850 Balance 100 400 Lab Results Last 24 Hours: Laboratory Results - last 24 hr 09/17/21 09/17/21 09/17/21 Range/Units 11:33 11:33 16:20 WBC 17.4 H (4.0-11.0) 10^3/uL RBC 3.50 L (4.50-6.00) x10^6/uL Hgb 10.5 L (14.0-18.0) g/dL Hct 31.5 L (42.0-52.0) % MCV 90.0 (83.0-97.0) fL MCH 30.0 (27.0-32.0) pg MCHC 33.3 (32.0-36.0) g/dL RDW Coeff of Caryn 14.7 (11.0-15.0) % Plt Count 521 H (150-400) 10^3/uL Immature Gran % (Auto) 0.3 (0.0-4.9) % Neut % (Auto) 89.2 H (41-71) % Lymph % (Auto) 6.2 L (24-44) % Whitley % (Auto) 4.1 (0-10) % Eos % (Auto) 0.1 (0-6) % Baso % (Auto) 0.1 (0-1) % Neut # (Auto) 15.51 H (1.80-8.00) x10^3/uL Lymph # (Auto) 1.08 (0.60-5.00) 10^3/uL Whitley # (Auto) 0.72 (0.00-1.50) 10^3/uL Eos # (Auto) 0.01 (0.00-1.50) 10^3/uL Baso # (Auto) 0.01 (0.00-0.50) 10^3/uL Immature Gran # (Auto) 0.05 (0.00-0.49) 10^3/uL ESR 15 (0-15) mm/hr Sodium 140 (136-145) mEq/L Potassium 5.1 H D (3.5-5.0) mEq/L Chloride 102 (98-106) mEq/L Carbon Dioxide 24 (21-32) mmol/L BUN 88 H* D (7-18) mg/dL Creatinine 3.6 H* D (0.7-1.3) mg/dL Est Cr Clr Drug Dosing TNP Estimated GFR (MDRD) 17 L (>=60) mL/min Glucose 171 H (75-99) mg/dL POC Glucose (75-105) mg/dL Calcium 9.4 (8.4-10.1) mg/dL Magnesium 2.3 (1.8-2.4) mg/dL Total Bilirubin 0.2 (0.0-1.0) mg/dL AST 42 H (15-37) U/L ALT 31 (12-78) U/L Alkaline Phosphatase 91 (46-116) U/L C-Reactive Protein 0.7 (0.2-0.8) mg/dL Total Protein 8.1 (6.4-8.2) g/dL Albumin 3.8 (3.4-5.0) g/dL Urine Color Dark yellow (YELLOW) Urine Appearance Slightly cloudy (CLEAR) Urine pH 5.0 (4.5-8.0) Ur Specific [place] 1.020 (1.003-1.020) Urine Protein Negative (NEGATIVE) mg/dL Urine Glucose (UA) Negative (NEGATIVE) mg/dL Urine Ketones Negative (NEGATIVE) mg/dL Urine Occult Blood Negative (NEGATIVE) Urine Nitrite Negative (NEGATIVE) Urine Bilirubin Negative (NEGATIVE) Urine Urobilinogen 0.2 (0.2-1.0) EU/dL Ur Leukocyte Esterase Negative (NEGATIVE) 09/17/21 09/18/21 09/18/21 Range/Units 19:32 07:05 07:05 WBC 12.6 H (4.0-11.0) 10^3/uL RBC 3.38 L (4.50-6.00) x10^6/uL Hgb 10.1 L (14.0-18.0) g/dL Hct 30.6 L (42.0-52.0) % MCV 90.5 (83.0-97.0) fL MCH 29.9 (27.0-32.0) pg MCHC 33.0 (32.0-36.0) g/dL RDW Coeff of Caryn 14.5 (11.0-15.0) % Plt Count 492 H (150-400) 10^3/uL Immature Gran % (Auto) 0.2 (0.0-4.9) % Neut % (Auto) 81.5 H (41-71) % Lymph % (Auto) 12.6 L (24-44) % Whitley % (Auto) 5.2 (0-10) % Eos % (Auto) 0.3 (0-6) % Baso % (Auto) 0.2 (0-1) % Neut # (Auto) 10.29 H (1.80-8.00) x10^3/uL Lymph # (Auto) 1.59 (0.60-5.00) 10^3/uL Whitley # (Auto) 0.65 (0.00-1.50) 10^3/uL Eos # (Auto) 0.04 (0.00-1.50) 10^3/uL Baso # (Auto) 0.02 (0.00-0.50) 10^3/uL Immature Gran # (Auto) 0.02 (0.00-0.49) 10^3/uL ESR (0-15) mm/hr Sodium 145 (136-145) mEq/L Potassium 4.3 (3.5-5.0) mEq/L Chloride 108 H (98-106) mEq/L Carbon Dioxide 24 (21-32) mmol/L BUN 54 H (7-18) mg/dL Creatinine 1.6 H D (0.7-1.3) mg/dL Est Cr Clr Drug Dosing 40.64 Estimated GFR (MDRD) 43 L (>=60) mL/min Glucose 130 H (75-99) mg/dL POC Glucose 166 H (75-105) mg/dL Calcium 8.8 (8.4-10.1) mg/dL Magnesium (1.8-2.4) mg/dL Total Bilirubin 0.3 (0.0-1.0) mg/dL AST 44 H (15-37) U/L ALT 13 (12-78) U/L Alkaline Phosphatase 95 (46-116) U/L C-Reactive Protein (0.2-0.8) mg/dL Total Protein 7.0 (6.4-8.2) g/dL Albumin 3.2 L (3.4-5.0) g/dL Urine Color (YELLOW) Urine Appearance (CLEAR) Urine pH (4.5-8.0) Ur Specific [place] (1.003-1.020) Urine Protein (NEGATIVE) mg/dL Urine Glucose (UA) (NEGATIVE) mg/dL Urine Ketones (NEGATIVE) mg/dL Urine Occult Blood (NEGATIVE) Urine Nitrite (NEGATIVE) Urine Bilirubin (NEGATIVE) Urine Urobilinogen (0.2-1.0) EU/dL Ur Leukocyte Esterase (NEGATIVE) 09/18/21 Range/Units 08:00 WBC (4.0-11.0) 10^3/uL RBC (4.50-6.00) x10^6/uL Hgb (14.0-18.0) g/dL Hct (42.0-52.0) % MCV (83.0-97.0) fL MCH (27.0-32.0) pg MCHC (32.0-36.0) g/dL RDW Coeff of Caryn (11.0-15.0) % Plt Count (150-400) 10^3/uL Immature Gran % (Auto) (0.0-4.9) % Neut % (Auto) (41-71) % Lymph % (Auto) (24-44) % Whitley % (Auto) (0-10) % Eos % (Auto) (0-6) % Baso % (Auto) (0-1) % Neut # (Auto) (1.80-8.00) x10^3/uL Lymph # (Auto) (0.60-5.00) 10^3/uL Whitley # (Auto) (0.00-1.50) 10^3/uL Eos # (Auto) (0.00-1.50) 10^3/uL Baso # (Auto) (0.00-0.50) 10^3/uL Immature Gran # (Auto) (0.00-0.49) 10^3/uL ESR (0-15) mm/hr Sodium (136-145) mEq/L Potassium (3.5-5.0) mEq/L Chloride (98-106) mEq/L Carbon Dioxide (21-32) mmol/L BUN (7-18) mg/dL Creatinine (0.7-1.3) mg/dL Est Cr Clr Drug Dosing Estimated GFR (MDRD) (>=60) mL/min Glucose (75-99) mg/dL POC Glucose 114 H (75-105) mg/dL Calcium (8.4-10.1) mg/dL Magnesium (1.8-2.4) mg/dL Total Bilirubin (0.0-1.0) mg/dL AST (15-37) U/L ALT (12-78) U/L Alkaline Phosphatase (46-116) U/L C-Reactive Protein (0.2-0.8) mg/dL Total Protein (6.4-8.2) g/dL Albumin (3.4-5.0) g/dL Urine Color (YELLOW) Urine Appearance (CLEAR) Urine pH (4.5-8.0) Ur Specific [place] (1.003-1.020) Urine Protein (NEGATIVE) mg/dL Urine Glucose (UA) (NEGATIVE) mg/dL Urine Ketones (NEGATIVE) mg/dL Urine Occult Blood (NEGATIVE) Urine Nitrite (NEGATIVE) Urine Bilirubin (NEGATIVE) Urine Urobilinogen (0.2-1.0) EU/dL Ur Leukocyte Esterase (NEGATIVE) Med Orders - Current: Current Medications Amlodipine Besylate (Amlodipine 2.5 Mg Tab) 5 mg PO BEDTIME [facility] Last Admin: 09/17/21 19:53 Dose: Not Given Documented by: Atorvastatin Calcium (Atorvastatin 20 Mg Tab) 40 mg PO DAILY [facility] Last Admin: 09/18/21 07:40 Dose: 40 mg Documented by: Brimonidine Tartrate (Brimonidine 0.2% Ophth Soln 5 Ml Bottle) 0 ml EYEBOTH BID [facility] Last Admin: 09/18/21 08:09 Dose: 1 drop Documented by: Ceftriaxone Sodium (Ceftriaxone 1 Gm Vial) 1 gm IVPUSH Q24H [facility] Stop: 09/21/21 14:01 Last Admin: 09/17/21 14:16 Dose: 1 gm Documented by: Cholecalciferol (Cholecalciferol (Vitamin D3) 25 Mcg Tab) 125 mcg PO DAILY [facility] Last Admin: 09/18/21 07:41 Dose: 125 mcg Documented by: Clopidogrel Bisulfate (Clopidogrel 75 Mg Tab) 75 mg PO DAILY [facility] Last Admin: 09/18/21 07:40 Dose: 75 mg Documented by: Cyanocobalamin (Cyanocobalamin (Vitamin B12) 1,000 Mcg Tab) 1,000 mcg PO DAILY [facility] Last Admin: 09/18/21 07:40 Dose: 1,000 mcg Documented by: Dorzolamide HCl (Dorzolamide 2% Ophth Soln 10 Ml Bottle) 0 ml EYEBOTH BID [facility] Last Admin: 09/18/21 08:29 Dose: Not Given Documented by: Sodium Chloride (Normal Saline) 1,000 mls @ 250 mls/hr IV ASDIRECTED [facility] Last Admin: 09/17/21 12:45 Dose: 250 mls/hr Documented by: Sodium Chloride (Normal Saline) 1,000 mls @ 150 mls/hr IV ASDIRECTED [facility] Last Admin: 09/17/21 16:55 Dose: 150 mls/hr Documented by: Iopamidol (Iopamidol 755 Mg/Ml 200 Ml Bottle) 200 ml IV ONETIME ONE Stop: 09/18/21 09:20 Latanoprost (Latanoprost 0.005% Ophth Soln 2.5 Ml Bottle) 0 ml EYEBOTH BEDTIME [facility] Last Admin: 09/17/21 19:52 Dose: 1 drop Documented by: Lisinopril (Lisinopril 10 Mg Tab) 10 mg PO DAILY [facility] Last Admin: 09/18/21 07:40 Dose: 10 mg Documented by: Melatonin (Melatonin 3 Mg Tab) 6 mg PO BEDTIME PRN PRN Reason: Insomnia Non-Formulary Medication (Amino Acids/Protein Hydrolys [Liquacel Liquid Protein]) 1 packet PO DAILY [facility] Non-Formulary Medication (Carboxymethylcellulose Sodium [Refresh Tears]) 1 drop EYEBOTH BID [facility] Non-Formulary Medication (Magnesium Chloride [Slow-Mag]) 1 tab PO TID [facility] Timolol Maleate (Timolol Maleate 0.5% Ophth Soln 5 Ml Bottle) 0 ml EYEBOTH BID [facility] Last Admin: 09/18/21 08:28 Dose: 1 drop Documented by: Discontinued Medications Acetaminophen (Acetaminophen 325 Mg Tab) 650 mg PO Q4H PRN PRN Reason: Pain (Mild 1-3)/fever Acetaminophen (Acetaminophen 325 Mg Tab) 650 mg PO Q4H PRN PRN Reason: Pain/Fever Sodium Chloride (Normal Saline) 1,000 mls @ 999 mls/hr IV .BOLUS ONE Stop: 09/17/21 13:29 Last Admin: 09/17/21 19:19 Dose: Not Given Documented by: Morphine Sulfate (Morphine 2 Mg/Ml Syringe) 1 mg IVPUSH ONETIME ONE Stop: 09/18/21 07:44 Last Admin: 09/18/21 07:52 Dose: 1 mg Documented by: - Exam Quality Assessment: Skin Breakdown General: Cooperative (somehwhat slow to respond, but at baseline, hx cva), No Acute Distress HEENT: Mucous Membr. Moist/[place]ol[place]roke, Other (left eye cataract, hx glaucoma) Neck: Supple Lungs: Clear to Auscultation, Normal Respiratory Effort Cardiovascular: Regular Rate, Regular Rhythm GI/Abdominal Exam: Normal Bowel Sounds, Soft, Non-Tender, No Distention Back Exam: Full Range of Motion Extremities: No Pedal Edema, Slow Capillary Refill Skin: Warm, Dry, Other (cool feet, right more so than left, stage 3 sacrum decubitus, see nursing notes for measurements) Wound/Incisions: Dressing Dry and Intact, Other (Allevyn Ag dressing on foot, Iodophor gauze and foam dressing on sacrum) Neurological: No New Focal Deficit Psy/Mental Status: Alert, Normal Affect - Patient Data Lab Results Last 24 hrs: Laboratory Results - last 24 hr 09/17/21 09/17/21 09/17/21 Range/Units 11:33 11:33 16:20 WBC 17.4 H (4.0-11.0) 10^3/uL RBC 3.50 L (4.50-6.00) x10^6/uL Hgb 10.5 L (14.0-18.0) g/dL Hct 31.5 L (42.0-52.0) % MCV 90.0 (83.0-97.0) fL MCH 30.0 (27.0-32.0) pg MCHC 33.3 (32.0-36.0) g/dL RDW Coeff of Caryn 14.7 (11.0-15.0) % Plt Count 521 H (150-400) 10^3/uL Immature Gran % (Auto) 0.3 (0.0-4.9) % Neut % (Auto) 89.2 H (41-71) % Lymph % (Auto) 6.2 L (24-44) % Whitley % (Auto) 4.1 (0-10) % Eos % (Auto) 0.1 (0-6) % Baso % (Auto) 0.1 (0-1) % Neut # (Auto) 15.51 H (1.80-8.00) x10^3/uL Lymph # (Auto) 1.08 (0.60-5.00) 10^3/uL Whitley # (Auto) 0.72 (0.00-1.50) 10^3/uL Eos # (Auto) 0.01 (0.00-1.50) 10^3/uL Baso # (Auto) 0.01 (0.00-0.50) 10^3/uL Immature Gran # (Auto) 0.05 (0.00-0.49) 10^3/uL ESR 15 (0-15) mm/hr Sodium 140 (136-145) mEq/L Potassium 5.1 H D (3.5-5.0) mEq/L Chloride 102 (98-106) mEq/L Carbon Dioxide 24 (21-32) mmol/L BUN 88 H* D (7-18) mg/dL Creatinine 3.6 H* D (0.7-1.3) mg/dL Est Cr Clr Drug Dosing TNP Estimated GFR (MDRD) 17 L (>=60) mL/min Glucose 171 H (75-99) mg/dL POC Glucose (75-105) mg/dL Calcium 9.4 (8.4-10.1) mg/dL Magnesium 2.3 (1.8-2.4) mg/dL Total Bilirubin 0.2 (0.0-1.0) mg/dL AST 42 H (15-37) U/L ALT 31 (12-78) U/L Alkaline Phosphatase 91 (46-116) U/L C-Reactive Protein 0.7 (0.2-0.8) mg/dL Total Protein 8.1 (6.4-8.2) g/dL Albumin 3.8 (3.4-5.0) g/dL Urine Color Dark yellow (YELLOW) Urine Appearance Slightly cloudy (CLEAR) Urine pH 5.0 (4.5-8.0) Ur Specific [place] 1.020 (1.003-1.020) Urine Protein Negative (NEGATIVE) mg/dL Urine Glucose (UA) Negative (NEGATIVE) mg/dL Urine Ketones Negative (NEGATIVE) mg/dL Urine Occult Blood Negative (NEGATIVE) Urine Nitrite Negative (NEGATIVE) Urine Bilirubin Negative (NEGATIVE) Urine Urobilinogen 0.2 (0.2-1.0) EU/dL Ur Leukocyte Esterase Negative (NEGATIVE) 09/17/21 09/18/21 09/18/21 Range/Units 19:32 07:05 07:05 WBC 12.6 H (4.0-11.0) 10^3/uL RBC 3.38 L (4.50-6.00) x10^6/uL Hgb 10.1 L (14.0-18.0) g/dL Hct 30.6 L (42.0-52.0) % MCV 90.5 (83.0-97.0) fL MCH 29.9 (27.0-32.0) pg MCHC 33.0 (32.0-36.0) g/dL RDW Coeff of Caryn 14.5 (11.0-15.0) % Plt Count 492 H (150-400) 10^3/uL Immature Gran % (Auto) 0.2 (0.0-4.9) % Neut % (Auto) 81.5 H (41-71) % Lymph % (Auto) 12.6 L (24-44) % Whitley % (Auto) 5.2 (0-10) % Eos % (Auto) 0.3 (0-6) % Baso % (Auto) 0.2 (0-1) % Neut # (Auto) 10.29 H (1.80-8.00) x10^3/uL Lymph # (Auto) 1.59 (0.60-5.00) 10^3/uL Whitley # (Auto) 0.65 (0.00-1.50) 10^3/uL Eos # (Auto) 0.04 (0.00-1.50) 10^3/uL Baso # (Auto) 0.02 (0.00-0.50) 10^3/uL Immature Gran # (Auto) 0.02 (0.00-0.49) 10^3/uL ESR (0-15) mm/hr Sodium 145 (136-145) mEq/L Potassium 4.3 (3.5-5.0) mEq/L Chloride 108 H (98-106) mEq/L Carbon Dioxide 24 (21-32) mmol/L BUN 54 H (7-18) mg/dL Creatinine 1.6 H D (0.7-1.3) mg/dL Est Cr Clr Drug Dosing 40.64 Estimated GFR (MDRD) 43 L (>=60) mL/min Glucose 130 H (75-99) mg/dL POC Glucose 166 H (75-105) mg/dL Calcium 8.8 (8.4-10.1) mg/dL Magnesium (1.8-2.4) mg/dL Total Bilirubin 0.3 (0.0-1.0) mg/dL AST 44 H (15-37) U/L ALT 13 (12-78) U/L Alkaline Phosphatase 95 (46-116) U/L C-Reactive Protein (0.2-0.8) mg/dL Total Protein 7.0 (6.4-8.2) g/dL Albumin 3.2 L (3.4-5.0) g/dL Urine Color (YELLOW) Urine Appearance (CLEAR) Urine pH (4.5-8.0) Ur Specific [place] (1.003-1.020) Urine Protein (NEGATIVE) mg/dL Urine Glucose (UA) (NEGATIVE) mg/dL Urine Ketones (NEGATIVE) mg/dL Urine Occult Blood (NEGATIVE) Urine Nitrite (NEGATIVE) Urine Bilirubin (NEGATIVE) Urine Urobilinogen (0.2-1.0) EU/dL Ur Leukocyte Esterase (NEGATIVE) 09/18/21 Range/Units 08:00 WBC (4.0-11.0) 10^3/uL RBC (4.50-6.00) x10^6/uL Hgb (14.0-18.0) g/dL Hct (42.0-52.0) % MCV (83.0-97.0) fL MCH (27.0-32.0) pg MCHC (32.0-36.0) g/dL RDW Coeff of Caryn (11.0-15.0) % Plt Count (150-400) 10^3/uL Immature Gran % (Auto) (0.0-4.9) % Neut % (Auto) (41-71) % Lymph % (Auto) (24-44) % Whitley % (Auto) (0-10) % Eos % (Auto) (0-6) % Baso % (Auto) (0-1) % Neut # (Auto) (1.80-8.00) x10^3/uL Lymph # (Auto) (0.60-5.00) 10^3/uL Whitley # (Auto) (0.00-1.50) 10^3/uL Eos # (Auto) (0.00-1.50) 10^3/uL Baso # (Auto) (0.00-0.50) 10^3/uL Immature Gran # (Auto) (0.00-0.49) 10^3/uL ESR (0-15) mm/hr Sodium (136-145) mEq/L Potassium (3.5-5.0) mEq/L Chloride (98-106) mEq/L Carbon Dioxide (21-32) mmol/L BUN (7-18) mg/dL Creatinine (0.7-1.3) mg/dL Est Cr Clr Drug Dosing Estimated GFR (MDRD) (>=60) mL/min Glucose (75-99) mg/dL POC Glucose 114 H (75-105) mg/dL Calcium (8.4-10.1) mg/dL Magnesium (1.8-2.4) mg/dL Total Bilirubin (0.0-1.0) mg/dL AST (15-37) U/L ALT (12-78) U/L Alkaline Phosphatase (46-116) U/L C-Reactive Protein (0.2-0.8) mg/dL Total Protein (6.4-8.2) g/dL Albumin (3.4-5.0) g/dL Urine Color (YELLOW) Urine Appearance (CLEAR) Urine pH (4.5-8.0) Ur Specific [place] (1.003-1.020) Urine Protein (NEGATIVE) mg/dL Urine Glucose (UA) (NEGATIVE) mg/dL Urine Ketones (NEGATIVE) mg/dL Urine Occult Blood (NEGATIVE) Urine Nitrite (NEGATIVE) Urine Bilirubin (NEGATIVE) Urine Urobilinogen (0.2-1.0) EU/dL Ur Leukocyte Esterase (NEGATIVE) Result Diagrams: 09/18/21 07:05 09/18/21 07:05 Sepsis Event Note - Evaluation Sepsis Screening Result: No Definite Risk - Focused Exam Vital Signs: Vital Signs Temp Pulse Resp BP BP Pulse Ox 09/18/21 07:50 98.3 F 89 20 135/52 L 98 09/18/21 07:40 135/52 L 09/18/21 04:00 97.6 F 76 14 120/87 99 09/18/21 00:00 98.6 F 92 16 126/64 99 - Problem List & Annotations (1) Hypotension SNOMED Code(s): 49879456 Code(s): I95.9 - HYPOTENSION, UNSPECIFIED Status: Acute Current Visit: Yes (2) Pressure ulcer of sacral region, stage 3 SNOMED Code(s): 581698387, 461907434 Code(s): L89.153 - PRESSURE ULCER OF SACRAL REGION, STAGE 3 Status: Acute Current Visit: Yes (3) Elevated serum creatinine SNOMED Code(s): 642877700 Code(s): R79.89 - OTHER SPECIFIED ABNORMAL FINDINGS OF BLOOD CHEMISTRY Status: Acute Current Visit: Yes (4) Elevated WBCs SNOMED Code(s): 129482343, 569670259 Code(s): D72.829 - ELEVATED WHITE BLOOD CELL COUNT, UNSPECIFIED Status: Acute Current Visit: Yes (5) Wound of foot SNOMED Code(s): 681765995, 375913896 Code(s): S91.309A - UNSPECIFIED OPEN WOUND, UNSPECIFIED FOOT, INITIAL ENCOUNTER Status: Acute Current Visit: Yes (6) Weakness SNOMED Code(s): 38332873 Code(s): R53.1 - WEAKNESS Status: Acute Priority: High Current Visit: No - Problem List Review Problem List Initiated/Reviewed/Updated: Yes - My Orders Last 24 Hours: My Active Orders 09/17/21 12:37 Patient Status [ADT] Routine Bedrest Bedside Commode [RC] .PRN Blood Glucose Check, Bedside [RC] 0730,1130,1730,2100 Height and Weight [RC] .PRN Oxygen Therapy [RC] .PRN Vital Signs [RC] 0000,0400,0800,1200,1600,2000 Resuscitation Status Routine 09/17/21 12:41 Cardiac Monitoring [RC] 0800,2000 Intake and Output [RC] 1800,0600 09/17/21 12:45 Sodium Chloride 0.9% [Normal Saline] 1,000 ml IV ASDIRECTED 09/17/21 13:04 CULTURE WOUND [RM] Routine 09/17/21 14:00 Magnesium Chloride [Slow-Mag] 1 tab PO TID cefTRIAXone [Rocephin] 1 gm IVPUSH Q24H 09/17/21 17:00 Sodium Chloride 0.9% [Normal Saline] 1,000 ml IV ASDIRECTED 09/17/21 Dinner Consistent Carbohydrate Diet [DIET] 09/17/21 20:00 Brimonidine [Alphagan 0.2% Ophth Soln] 0 ml EYEBOTH BID Carboxymethylcellulose Sodium [Refresh Tears] 1 drop EYEBOTH BID Dorzolamide [Trusopt 2% Ophth Soln] 0 ml EYEBOTH BID Latanoprost [Xalatan 0.005% Ophth Soln] 0 ml EYEBOTH BEDTIME amLODIPine [Norvasc] 5 mg PO BEDTIME timoloL maleate [Timoptic 0.5% Ophth Soln] 0 ml EYEBOTH BID 09/18/21 08:00 Amino Acids/Protein Hydrolys [Liquacel Liquid Protein] 1 packet PO DAILY Cholecalciferol (Vitamin D3) [Vitamin D3] 125 mcg PO DAILY Clopidogrel [Plavix] 75 mg PO DAILY Cyanocobalamin (Vitamin B12) [Vitamin B12] 1,000 mcg PO DAILY atorvaSTATin [Lipitor] 40 mg PO DAILY lisinopriL [Prinivil] 10 mg PO DAILY 09/18/21 08:45 Melatonin 6 mg PO BEDTIME PRN 09/18/21 09:15 Lower Leg w Cont Rt [CT] Routine 09/18/21 09:19 Pressure Reduction Mattress [OM.PC] Routine - Plan Plan:: CTA today, will increase fluids after and continue to hold metformin. Will try melatonin tonight to help with rest. continue antibiotics.
[2021-09-18] MEDS: Sodium Chloride 0.9% 1,000 ML IV SCH ×2 (10:06→15:00)
[2021-09-18] MEDS: cefTRIAXone 1 GM Vial IVPUSH SCH (14:59)
[2021-09-18] MEDS: [UNRECOGNIZED DRUG - OTHER] PO SCH ×3 (19:26→20:29)
[2021-09-18] MEDS: REFRESH EYE EYEBOTH SCH ×2 (19:27→20:28)
[2021-09-18] MEDS: amLODIPine 2.5 MG Tab PO SCH (20:28)
[2021-09-18] MEDS: Latanoprost 0.005% Ophth Soln 2.5 ML Bottle EYEBOTH SCH (20:29)
[2021-09-18] MEDS ORDERED: Morphine 2 MG/ML SYRINGE ONE (20:51)
[2021-09-19] MEDS: Cholecalciferol (Vitamin D3) 25 MCG Tab PO SCH (08:10)
[2021-09-19] MEDS: atorvaSTATin 20 MG Tab PO SCH (08:10)
[2021-09-19] MEDS: Cyanocobalamin (Vitamin B12) 1,000 MCG Tab PO SCH (08:10)
[2021-09-19] MEDS: Clopidogrel 75 MG Tab PO SCH (08:10)
[2021-09-19] MEDS: Lisinopril 10 MG Tab PO SCH (08:10)
[2021-09-19] MEDS: Timolol Maleate 0.5% Ophth Soln 5 ML Bottle EYEBOTH SCH (08:18)
[2021-09-19] MEDS: Brimonidine 0.2% Ophth Soln 5 ML Bottle EYEBOTH SCH (08:18)
[2021-09-19] MEDS: REFRESH EYE EYEBOTH SCH (08:19)
[2021-09-19] MEDS: [UNRECOGNIZED DRUG - OTHER] PO SCH (08:20)
[2021-09-19] MEDS: Dorzolamide 2% Ophth Soln 10 ML Bottle EYEBOTH SCH ×2 (08:21→09:08)
[2021-09-19 09:03] LABS: CHLORIDE,CL 107 mEq/L (98-106); SODIUM,NA 143 mEq/L (136-145)
--- NOTE | 2021-09-19 10:27 | PCM.PN ---
- General Info Date of Service: 09/19/21 Admission Dx/Problem (Free Text): Right Lower Extremity Wound PAD Elevated Creatinine Elevated WBCs Hypotension Dehydration Pressure Ulcer, Sacrum, Stage III Subjective Update: Labs improved, creatinine is back at baseline of 0.9 today. CTA results dis cussed with PCP Dr. Barber. Right foot improved in appearance, is significantly less cool and cap refill time improved. Nursing staff changing iodphor guaze to sacrum tunneled wound and right foot has dressing with silver. Functional Status: Reports: Pain Controlled, Tolerating Diet - Review of Systems General: Reports: Weakness (improved) HEENT: Reports: No Symptoms, Other (glaucoma/cataract ) Pulmonary: Reports: No Symptoms Cardiovascular: Reports: No Symptoms Gastrointestinal: Reports: No Symptoms Genitourinary: Reports: No Symptoms Musculoskeletal: Reports: No Symptoms Skin: Reports: Other (decubitus sacrum and right foot wound dorsal surface) Neurological: Reports: Other (CVA hx, no new symptoms) Psychiatric: Reports: No Symptoms - Patient Data Vitals - Most Recent: Last Vital Signs Temp 97.8 F 09/19/21 08:00 Pulse 88 09/19/21 08:00 Resp 18 09/19/21 08:00 BP 120/84 09/19/21 08:10 Pulse Ox 99 09/19/21 08:00 Weight - Most Recent: 151 lb 12.8 oz I&O - Last 24 Hours: Intake & Output 09/18/21 09/19/21 09/19/21 22:59 06:59 14:59 Output Total 800 Balance -800 Lab Results Last 24 Hours: Laboratory Results - last 24 hr 09/18/21 09/18/21 09/19/21 Range/Units 11:54 17:34 08:31 WBC (4.0-11.0) 10^3/uL RBC (4.50-6.00) x10^6/uL Hgb (14.0-18.0) g/dL Hct (42.0-52.0) % MCV (83.0-97.0) fL MCH (27.0-32.0) pg MCHC (32.0-36.0) g/dL RDW Coeff of Caryn (11.0-15.0) % Plt Count (150-400) 10^3/uL Immature Gran % (Auto) (0.0-4.9) % Neut % (Auto) (41-71) % Lymph % (Auto) (24-44) % [place] % (Auto) (0-10) % Eos % (Auto) (0-6) % Baso % (Auto) (0-1) % Neut # (Auto) (1.80-8.00) x10^3/uL Lymph # (Auto) (0.60-5.00) 10^3/uL [place] # (Auto) (0.00-1.50) 10^3/uL Eos # (Auto) (0.00-1.50) 10^3/uL Baso # (Auto) (0.00-0.50) 10^3/uL Immature Gran # (Auto) (0.00-0.49) 10^3/uL Sodium (136-145) mEq/L Potassium (3.5-5.0) mEq/L Chloride (98-106) mEq/L Carbon Dioxide (21-32) mmol/L BUN (7-18) mg/dL Creatinine (0.7-1.3) mg/dL Est Cr Clr Drug Dosing mL/min Estimated GFR (MDRD) (>=60) mL/min Glucose (75-99) mg/dL POC Glucose 127 H 151 H 112 H (75-105) mg/dL Calcium (8.4-10.1) mg/dL Total Bilirubin (0.0-1.0) mg/dL AST (15-37) U/L ALT (12-78) U/L Alkaline Phosphatase (46-116) U/L Total Protein (6.4-8.2) g/dL Albumin (3.4-5.0) g/dL 09/19/21 09/19/21 Range/Units 08:50 08:50 WBC 14.2 H (4.0-11.0) 10^3/uL RBC 3.41 L (4.50-6.00) x10^6/uL Hgb 10.2 L (14.0-18.0) g/dL Hct 31.5 L (42.0-52.0) % MCV 92.4 (83.0-97.0) fL MCH 29.9 (27.0-32.0) pg MCHC 32.4 (32.0-36.0) g/dL RDW Coeff of Caryn 14.5 (11.0-15.0) % Plt Count 455 H (150-400) 10^3/uL Immature Gran % (Auto) 0.3 (0.0-4.9) % Neut % (Auto) 83.8 H (41-71) % Lymph % (Auto) 10.2 L (24-44) % [place] % (Auto) 5.0 (0-10) % Eos % (Auto) 0.6 (0-6) % Baso % (Auto) 0.1 (0-1) % Neut # (Auto) 11.94 H (1.80-8.00) x10^3/uL Lymph # (Auto) 1.45 (0.60-5.00) 10^3/uL [place] # (Auto) 0.71 (0.00-1.50) 10^3/uL Eos # (Auto) 0.09 (0.00-1.50) 10^3/uL Baso # (Auto) 0.01 (0.00-0.50) 10^3/uL Immature Gran # (Auto) 0.04 (0.00-0.49) 10^3/uL Sodium 143 (136-145) mEq/L Potassium 4.0 (3.5-5.0) mEq/L Chloride 107 H (98-106) mEq/L Carbon Dioxide 27 (21-32) mmol/L BUN 18 D (7-18) mg/dL Creatinine 0.9 (0.7-1.3) mg/dL Est Cr Clr Drug Dosing 72.26 mL/min Estimated GFR (MDRD) > 60 (>=60) mL/min Glucose 143 H (75-99) mg/dL POC Glucose (75-105) mg/dL Calcium 8.3 L (8.4-10.1) mg/dL Total Bilirubin 0.3 (0.0-1.0) mg/dL AST 46 H (15-37) U/L ALT 13 (12-78) U/L Alkaline Phosphatase 100 (46-116) U/L Total Protein 6.6 (6.4-8.2) g/dL Albumin 3.0 L (3.4-5.0) g/dL Thang Results Last 24 Hours: Microbiology 09/17/21 13:04 Wound Culture - Final Sacrum Staphylococcus Aureus Med Orders - Current: Current Medications Amlodipine Besylate (Amlodipine 2.5 Mg Tab) 5 mg PO BEDTIME [facility] Last Admin: 09/18/21 20:28 Dose: 5 mg Documented by: Atorvastatin Calcium (Atorvastatin 20 Mg Tab) 40 mg PO DAILY [facility] Last Admin: 09/19/21 08:10 Dose: 40 mg Documented by: Brimonidine Tartrate (Brimonidine 0.2% Ophth Soln 5 Ml Bottle) 0 ml EYEBOTH BID [facility] Last Admin: 09/19/21 08:18 Dose: 1 drop Documented by: Ceftriaxone Sodium (Ceftriaxone 1 Gm Vial) 1 gm IVPUSH Q24H [facility] Stop: 09/21/21 14:01 Last Admin: 09/18/21 14:59 Dose: 1 gm Documented by: Cholecalciferol (Cholecalciferol (Vitamin D3) 25 Mcg Tab) 125 mcg PO DAILY [facility] Last Admin: 09/19/21 08:10 Dose: 125 mcg Documented by: Clopidogrel Bisulfate (Clopidogrel 75 Mg Tab) 75 mg PO DAILY [facility] Last Admin: 09/19/21 08:10 Dose: 75 mg Documented by: Cyanocobalamin (Cyanocobalamin (Vitamin B12) 1,000 Mcg Tab) 1,000 mcg PO DAILY [facility] Last Admin: 09/19/21 08:10 Dose: 1,000 mcg Documented by: Dorzolamide HCl (Dorzolamide 2% Ophth Soln 10 Ml Bottle) 0 ml EYEBOTH BID [facility] Last Admin: 09/19/21 09:08 Dose: 1 drop Documented by: Sodium Chloride (Normal Saline) 1,000 mls @ 250 mls/hr IV ASDIRECTED [facility] Last Admin: 09/18/21 10:06 Dose: 250 mls/hr Documented by: Sodium Chloride (Normal Saline) 1,000 mls @ 150 mls/hr IV ASDIRECTED [facility] Last Admin: 09/18/21 15:00 Dose: 150 mls/hr Documented by: Latanoprost (Latanoprost 0.005% Ophth Soln 2.5 Ml Bottle) 0 ml EYEBOTH BEDTIME [facility] Last Admin: 09/18/21 20:29 Dose: 1 drop Documented by: Lisinopril (Lisinopril 10 Mg Tab) 10 mg PO DAILY [facility] Last Admin: 09/19/21 08:10 Dose: 10 mg Documented by: Melatonin (Melatonin 3 Mg Tab) 6 mg PO BEDTIME PRN PRN Reason: Insomnia Last Admin: 09/18/21 20:27 Dose: 6 mg Documented by: Non-Formulary Medication (Amino Acids/Protein Hydrolys [Liquacel Liquid Protein]) 1 packet PO DAILY [facility] Refresh Eye Drops * (Pt Own Med*) 0 each EYEBOTH BID [facility] Last Admin: 09/19/21 08:19 Dose: 1 each Documented by: Slow Magnesium Chloride With Calcium *Pt Own Med* 0 each PO TID [facility] Last Admin: 09/19/21 08:20 Dose: 1 each Documented by: Timolol Maleate (Timolol Maleate 0.5% Ophth Soln 5 Ml Bottle) 0 ml EYEBOTH BID [facility] Last Admin: 09/19/21 08:18 Dose: 1 drop Documented by: Discontinued Medications Acetaminophen (Acetaminophen 325 Mg Tab) 650 mg PO Q4H PRN PRN Reason: Pain (Mild 1-3)/fever Acetaminophen (Acetaminophen 325 Mg Tab) 650 mg PO Q4H PRN PRN Reason: Pain/Fever Sodium Chloride (Normal Saline) 1,000 mls @ 999 mls/hr IV .BOLUS ONE Stop: 09/17/21 13:29 Last Admin: 09/17/21 19:19 Dose: Not Given Documented by: Iopamidol (Iopamidol 755 Mg/Ml 200 Ml Bottle) 200 ml IV ONETIME ONE Stop: 09/18/21 09:20 Last Admin: 09/18/21 09:53 Dose: 150 ml Documented by: Morphine Sulfate (Morphine 2 Mg/Ml Syringe) 1 mg IVPUSH ONETIME ONE Stop: 09/18/21 07:44 Last Admin: 09/18/21 07:52 Dose: 1 mg Documented by: Morphine Sulfate (Morphine 2 Mg/Ml Syringe) 1 mg IVPUSH ONETIME ONE Stop: 09/18/21 18:11 Last Admin: 09/18/21 20:27 Dose: 1 mg Documented by: Morphine Sulfate (Morphine 2 Mg/Ml Syringe) Confirm Administered Dose 2 mg .ROUTE .STK-MED ONE Stop: 09/18/21 20:52 Last Admin: 09/18/21 20:37 Dose: Not Given Documented by: Refresh Eye Drops * (Pt Own Med*) 0 each EYEBOTH BID [facility] Last Admin: 09/18/21 19:27 Dose: Not Given Documented by: Slow Magnesium Chloride With Calcium *Pt Own Med* 0 each PO TID [facility] Last Admin: 09/18/21 19:27 Dose: Not Given Documented by: - Exam General: Alert, Cooperative, No Acute Distress HEENT: EOMI, Mucous Membr. Moist/[place], Other (left eye cataract) Neck: Supple Lungs: Clear to Auscultation, Normal Respiratory Effort Cardiovascular: Regular Rate, Regular Rhythm GI/Abdominal Exam: Normal Bowel Sounds, Soft, Non-Tender, No Distention Extremities: Non-Tender, Slow Capillary Refill Skin: Warm, Dry, Other (stage 3 decubitus sacrum. wound dorsum right foot, dry, stable and no drainage) Wound/Incisions: Dressing Dry and Intact, No Drainage, Decubitis Neurological: No New Focal Deficit Psy/Mental Status: Alert, Normal Affect, Normal Mood - Patient Data Lab Results Last 24 hrs: Laboratory Results - last 24 hr 09/18/21 09/18/21 09/19/21 Range/Units 11:54 17:34 08:31 WBC (4.0-11.0) 10^3/uL RBC (4.50-6.00) x10^6/uL Hgb (14.0-18.0) g/dL Hct (42.0-52.0) % MCV (83.0-97.0) fL MCH (27.0-32.0) pg MCHC (32.0-36.0) g/dL RDW Coeff of Caryn (11.0-15.0) % Plt Count (150-400) 10^3/uL Immature Gran % (Auto) (0.0-4.9) % Neut % (Auto) (41-71) % Lymph % (Auto) (24-44) % [place] % (Auto) (0-10) % Eos % (Auto) (0-6) % Baso % (Auto) (0-1) % Neut # (Auto) (1.80-8.00) x10^3/uL Lymph # (Auto) (0.60-5.00) 10^3/uL [place] # (Auto) (0.00-1.50) 10^3/uL Eos # (Auto) (0.00-1.50) 10^3/uL Baso # (Auto) (0.00-0.50) 10^3/uL Immature Gran # (Auto) (0.00-0.49) 10^3/uL Sodium (136-145) mEq/L Potassium (3.5-5.0) mEq/L Chloride (98-106) mEq/L Carbon Dioxide (21-32) mmol/L BUN (7-18) mg/dL Creatinine (0.7-1.3) mg/dL Est Cr Clr Drug Dosing mL/min Estimated GFR (MDRD) (>=60) mL/min Glucose (75-99) mg/dL POC Glucose 127 H 151 H 112 H (75-105) mg/dL Calcium (8.4-10.1) mg/dL Total Bilirubin (0.0-1.0) mg/dL AST (15-37) U/L ALT (12-78) U/L Alkaline Phosphatase (46-116) U/L Total Protein (6.4-8.2) g/dL Albumin (3.4-5.0) g/dL 09/19/21 09/19/21 Range/Units 08:50 08:50 WBC 14.2 H (4.0-11.0) 10^3/uL RBC 3.41 L (4.50-6.00) x10^6/uL Hgb 10.2 L (14.0-18.0) g/dL Hct 31.5 L (42.0-52.0) % MCV 92.4 (83.0-97.0) fL MCH 29.9 (27.0-32.0) pg MCHC 32.4 (32.0-36.0) g/dL RDW Coeff of Caryn 14.5 (11.0-15.0) % Plt Count 455 H (150-400) 10^3/uL Immature Gran % (Auto) 0.3 (0.0-4.9) % Neut % (Auto) 83.8 H (41-71) % Lymph % (Auto) 10.2 L (24-44) % [place] % (Auto) 5.0 (0-10) % Eos % (Auto) 0.6 (0-6) % Baso % (Auto) 0.1 (0-1) % Neut # (Auto) 11.94 H (1.80-8.00) x10^3/uL Lymph # (Auto) 1.45 (0.60-5.00) 10^3/uL [place] # (Auto) 0.71 (0.00-1.50) 10^3/uL Eos # (Auto) 0.09 (0.00-1.50) 10^3/uL Baso # (Auto) 0.01 (0.00-0.50) 10^3/uL Immature Gran # (Auto) 0.04 (0.00-0.49) 10^3/uL Sodium 143 (136-145) mEq/L Potassium 4.0 (3.5-5.0) mEq/L Chloride 107 H (98-106) mEq/L Carbon Dioxide 27 (21-32) mmol/L BUN 18 D (7-18) mg/dL Creatinine 0.9 (0.7-1.3) mg/dL Est Cr Clr Drug Dosing 72.26 mL/min Estimated GFR (MDRD) > 60 (>=60) mL/min Glucose 143 H (75-99) mg/dL POC Glucose (75-105) mg/dL Calcium 8.3 L (8.4-10.1) mg/dL Total Bilirubin 0.3 (0.0-1.0) mg/dL AST 46 H (15-37) U/L ALT 13 (12-78) U/L Alkaline Phosphatase 100 (46-116) U/L Total Protein 6.6 (6.4-8.2) g/dL Albumin 3.0 L (3.4-5.0) g/dL Result Diagrams: 09/19/21 08:50 09/19/21 08:50 Thang Results Last 24 hrs: Microbiology 09/17/21 13:04 Wound Culture - Final Sacrum Staphylococcus Aureus Sepsis Event Note - Evaluation Sepsis Screening Result: No Definite Risk - Focused Exam Vital Signs: Vital Signs Temp Pulse Resp BP BP Pulse Ox 09/19/21 08:10 120/84 09/19/21 08:00 97.8 F 88 18 120/84 99 09/19/21 00:00 98.2 F 77 16 117/81 99 - Problem List & Annotations (1) Hypotension SNOMED Code(s): 69142560 Code(s): I95.9 - HYPOTENSION, UNSPECIFIED Status: Acute Current Visit: Yes (2) Pressure ulcer of sacral region, stage 3 SNOMED Code(s): 305378833, 617106515 Code(s): L89.153 - PRESSURE ULCER OF SACRAL REGION, STAGE 3 Status: Acute Current Visit: Yes (3) Elevated serum creatinine SNOMED Code(s): 147074169 Code(s): R79.89 - OTHER SPECIFIED ABNORMAL FINDINGS OF BLOOD CHEMISTRY Status: Acute Current Visit: Yes (4) Elevated WBCs SNOMED Code(s): 975620836, 283426090 Code(s): D72.829 - ELEVATED WHITE BLOOD CELL COUNT, UNSPECIFIED Status: Acute Current Visit: Yes (5) Wound of foot SNOMED Code(s): 424007508, 579479373 Code(s): S91.309A - UNSPECIFIED OPEN WOUND, UNSPECIFIED FOOT, INITIAL ENCOUNTER Status: Acute Current Visit: Yes (6) Weakness SNOMED Code(s): 17209276 Code(s): R53.1 - WEAKNESS Status: Acute Priority: High Current Visit: No - Problem List Review Problem List Initiated/Reviewed/Updated: Yes - My Orders Last 24 Hours: My Active Orders 09/18/21 20:00 Patient's Own Medication [Ptom] 0 each EYEBOTH BID Patient's Own Medication [Ptom] 0 each PO TID - Plan Plan:: CTA today, will increase fluids after and continue to hold metformin. Will try melatonin tonight to help with rest. continue antibiotics. 09/19/[address] Barber. Will consult Vascular and discharge pt back to [facility] today.
[2021-09-19 12:20] VITALS: BP 156/63; PULSE 78
--- NOTE | 2021-09-19 12:53 | PCM.DCSUM1 ---
Discharge Summary - Hospital Course Diagnosis: Stroke: No - Discharge Data Discharge Date: 09/19/21 Discharge Disposition: Home, Self-Care 01 Condition: Good - Referral to Home Health Primary Care Physician: Horacio Barber MD - Discharge Diagnosis/Problem(s) (1) Hypotension SNOMED Code(s): 91175568 ICD Code: I95.9 - HYPOTENSION, UNSPECIFIED Status: Resolved Current Visit: Yes (2) Pressure ulcer of sacral region, stage 3 SNOMED Code(s): 175005466, 331810828 ICD Code: L89.153 - PRESSURE ULCER OF SACRAL REGION, STAGE 3 Status: Acute Current Visit: Yes (3) Elevated serum creatinine SNOMED Code(s): 090288089 ICD Code: R79.89 - OTHER SPECIFIED ABNORMAL FINDINGS OF BLOOD CHEMISTRY Status: Resolved Current Visit: Yes (4) Elevated WBCs SNOMED Code(s): 609578494, 769723048 ICD Code: D72.829 - ELEVATED WHITE BLOOD CELL COUNT, UNSPECIFIED Status: Acute Current Visit: Yes (5) Wound of foot SNOMED Code(s): 643373407, 101632104 ICD Code: S91.309A - UNSPECIFIED OPEN WOUND, UNSPECIFIED FOOT, INITIAL ENCOUNTER Status: Acute Current Visit: Yes (6) Weakness SNOMED Code(s): 33389767 ICD Code: R53.1 - WEAKNESS Status: Acute Priority: High Current Visit: No - Patient Instructions Diet: Usual Diet as Tolerated, Diabetic Diet Activity: As Tolerated Notify Provider of: Fever, Increased Pain, Swelling and Redness, Drainage, Nausea and/or Vomiting - Discharge Plan *PRESCRIPTION DRUG MONITORING PROGRAM REVIEWED*: No *COPY OF PRESCRIPTION DRUG MONITORING REPORT IN PATIENT FERNANDO: No Home Medications: Home Meds Clopidogrel [Plavix] 75 mg PO DAILY 01/11/14 [History] Cyanocobalamin (Vitamin B-12) [Vitamin B-12] 1,000 mcg PO DAILY 01/11/14 [History] Latanoprost 1 drop EYEBOTH BEDTIME 01/11/14 [History] atorvaSTATin [Lipitor] 40 mg PO BEDTIME 01/11/14 [History] timoloL maleate [Timoptic 0.5 % O/S 15 ML] 1 drop EYEBOTH BID 01/11/14 [History] Cholecalciferol (Vitamin D3) [Vitamin D3] 5,000 unit PO DAILY 03/19/17 [History] Lisinopril 10 mg PO DAILY 03/19/17 [History] metFORMIN HCl [Metformin HCl] 850 mg PO BID 03/19/17 [History] Brimonidine Tartrate [Brimonidine Tartrate 0.2% Ophth Soln] 1 drop EYEBOTH BID 03/31/17 [History] Dorzolamide [Trusopt 2% Ophth Soln] 1 drop EYEBOTH BID 03/31/17 [History] Acetaminophen 650 mg PO Q4H PRN 01/26/19 [History] amLODIPine [Norvasc] 5 mg PO BEDTIME #30 tab 01/28/19 [Rx] Amino Acids/Protein Hydrolys [Liquacel Liquid Protein] 1 packet PO DAILY 07/09/21 [History] Carboxymethylcellulose Sodium [Refresh Tears] 1 drop EYEBOTH BID 07/09/21 [History] Magnesium Chloride [Slow-Mag] 1 tab PO TID 07/09/21 [History] Furosemide [Lasix] 40 mg PO DAILY 09/17/21 [History] Magnesium Hydroxide [Milk of Magnesia] 30 ml PO DAILY PRN 09/17/21 [History] Sulfamethoxazole/Trimethoprim [Bactrim Ds Tablet] 1 tab PO BID 09/17/21 [History] bisacodyL [Dulcolax] 10 mg RC DAILY PRN 09/17/21 [History] Oxygen Therapy Mode: Room Air - Discharge Summary/Plan Comment DC Time >30 min.: No Total # of Minutes for Discharge Time: 30 Discharge Summary/Plan Comment: Discharge to [facility]. Three more days ceftriaxone. Family unsure if wants Vascular Consult at present. - Patient Data Vitals - Most Recent: Last Vital Signs Temp 97.5 F 09/19/21 12:00 Pulse 78 09/19/21 12:00 Resp 18 09/19/21 12:00 BP 156/63 H 09/19/21 12:00 Pulse Ox 99 09/19/21 12:00 Weight - Most Recent: 151 lb 12.8 oz I&O - Last 24 hours: Intake & Output 09/18/21 09/19/21 09/19/21 22:59 06:59 14:59 Output Total 800 Balance -800 Lab Results - Last 24 hrs: Laboratory Results - last 24 hr 01/02/0209/19/21 09/19/21 Range/Units 17:34 08:31 08:50 WBC 14.2 H (4.0-11.0) 10^3/uL RBC 3.41 L (4.50-6.00) x10^6/uL Hgb 10.2 L (14.0-18.0) g/dL Hct 31.5 L (42.0-52.0) % MCV 92.4 (83.0-97.0) fL MCH 29.9 (27.0-32.0) pg MCHC 32.4 (32.0-36.0) g/dL RDW Coeff of Caryn 14.5 (11.0-15.0) % Plt Count 455 H (150-400) 10^3/uL Immature Gran % (Auto) 0.3 (0.0-4.9) % Neut % (Auto) 83.8 H (41-71) % Lymph % (Auto) 10.2 L (24-44) % [place] % (Auto) 5.0 (0-10) % Eos % (Auto) 0.6 (0-6) % Baso % (Auto) 0.1 (0-1) % Neut # (Auto) 11.94 H (1.80-8.00) x10^3/uL Lymph # (Auto) 1.45 (0.60-5.00) 10^3/uL [place] # (Auto) 0.71 (0.00-1.50) 10^3/uL Eos # (Auto) 0.09 (0.00-1.50) 10^3/uL Baso # (Auto) 0.01 (0.00-0.50) 10^3/uL Immature Gran # (Auto) 0.04 (0.00-0.49) 10^3/uL Sodium (136-145) mEq/L Potassium (3.5-5.0) mEq/L Chloride (98-106) mEq/L Carbon Dioxide (21-32) mmol/L BUN (7-18) mg/dL Creatinine (0.7-1.3) mg/dL Est Cr Clr Drug Dosing mL/min Estimated GFR (MDRD) (>=60) mL/min Glucose (75-99) mg/dL POC Glucose 151 H 112 H (75-105) mg/dL Calcium (8.4-10.1) mg/dL Total Bilirubin (0.0-1.0) mg/dL AST (15-37) U/L ALT (12-78) U/L Alkaline Phosphatase (46-116) U/L Total Protein (6.4-8.2) g/dL Albumin (3.4-5.0) g/dL 09/19/21 09/19/21 Range/Units 08:50 11:31 WBC (4.0-11.0) 10^3/uL RBC (4.50-6.00) x10^6/uL Hgb (14.0-18.0) g/dL Hct (42.0-52.0) % MCV (83.0-97.0) fL MCH (27.0-32.0) pg MCHC (32.0-36.0) g/dL RDW Coeff of Caryn (11.0-15.0) % Plt Count (150-400) 10^3/uL Immature Gran % (Auto) (0.0-4.9) % Neut % (Auto) (41-71) % Lymph % (Auto) (24-44) % [place] % (Auto) (0-10) % Eos % (Auto) (0-6) % Baso % (Auto) (0-1) % Neut # (Auto) (1.80-8.00) x10^3/uL Lymph # (Auto) (0.60-5.00) 10^3/uL [place] # (Auto) (0.00-1.50) 10^3/uL Eos # (Auto) (0.00-1.50) 10^3/uL Baso # (Auto) (0.00-0.50) 10^3/uL Immature Gran # (Auto) (0.00-0.49) 10^3/uL Sodium 143 (136-145) mEq/L Potassium 4.0 (3.5-5.0) mEq/L Chloride 107 H (98-106) mEq/L Carbon Dioxide 27 (21-32) mmol/L BUN 18 D (7-18) mg/dL Creatinine 0.9 (0.7-1.3) mg/dL Est Cr Clr Drug Dosing 72.26 mL/min Estimated GFR (MDRD) > 60 (>=60) mL/min Glucose 143 H (75-99) mg/dL POC Glucose 125 H (75-105) mg/dL Calcium 8.3 L (8.4-10.1) mg/dL Total Bilirubin 0.3 (0.0-1.0) mg/dL AST 46 H (15-37) U/L ALT 13 (12-78) U/L Alkaline Phosphatase 100 (46-116) U/L Total Protein 6.6 (6.4-8.2) g/dL Albumin 3.0 L (3.4-5.0) g/dL [facility] Results - Last 24 hrs: Microbiology 09/17/21 13:04 Wound Culture - Final Sacrum Staphylococcus Aureus Med Orders - Current: Current Medications Amlodipine Besylate (Amlodipine 2.5 Mg Tab) 5 mg PO BEDTIME [facility] Last Admin: 09/18/21 20:28 Dose: 5 mg Documented by: Atorvastatin Calcium (Atorvastatin 20 Mg Tab) 40 mg PO DAILY [facility] Last Admin: 09/19/21 08:10 Dose: 40 mg Documented by: Brimonidine Tartrate (Brimonidine 0.2% Ophth Soln 5 Ml Bottle) 0 ml EYEBOTH BID [facility] Last Admin: 09/19/21 08:18 Dose: 1 drop Documented by: Ceftriaxone Sodium (Ceftriaxone 1 Gm Vial) 1 gm IVPUSH Q24H [facility] Stop: 09/21/21 14:01 Last Admin: 09/18/21 14:59 Dose: 1 gm Documented by: Cholecalciferol (Cholecalciferol (Vitamin D3) 25 Mcg Tab) 125 mcg PO DAILY [facility] Last Admin: 09/19/21 08:10 Dose: 125 mcg Documented by: Clopidogrel Bisulfate (Clopidogrel 75 Mg Tab) 75 mg PO DAILY [facility] Last Admin: 09/19/21 08:10 Dose: 75 mg Documented by: Cyanocobalamin (Cyanocobalamin (Vitamin B12) 1,000 Mcg Tab) 1,000 mcg PO DAILY [facility] Last Admin: 09/19/21 08:10 Dose: 1,000 mcg Documented by: Dorzolamide HCl (Dorzolamide 2% Ophth Soln 10 Ml Bottle) 0 ml EYEBOTH BID [facility] Last Admin: 09/19/21 09:08 Dose: 1 drop Documented by: Sodium Chloride (Normal Saline) 1,000 mls @ 250 mls/hr IV ASDIRECTED [facility] Last Admin: 09/18/21 10:06 Dose: 250 mls/hr Documented by: Sodium Chloride (Normal Saline) 1,000 mls @ 150 mls/hr IV ASDIRECTED [facility] Last Admin: 09/18/21 15:00 Dose: 150 mls/hr Documented by: Latanoprost (Latanoprost 0.005% Ophth Soln 2.5 Ml Bottle) 0 ml EYEBOTH BEDTIME [facility] Last Admin: 09/18/21 20:29 Dose: 1 drop Documented by: Lisinopril (Lisinopril 10 Mg Tab) 10 mg PO DAILY [facility] Last Admin: 09/19/21 08:10 Dose: 10 mg Documented by: Melatonin (Melatonin 3 Mg Tab) 6 mg PO BEDTIME PRN PRN Reason: Insomnia Last Admin: 09/18/21 20:27 Dose: 6 mg Documented by: Non-Formulary Medication (Amino Acids/Protein Hydrolys [Liquacel Liquid Protein]) 1 packet PO DAILY [facility] Refresh Eye Drops * (Pt Own Med*) 0 each EYEBOTH BID [facility] Last Admin: 09/19/21 08:19 Dose: 1 each Documented by: Slow Magnesium Chloride With Calcium *Pt Own Med* 0 each PO TID [facility] Last Admin: 09/19/21 08:20 Dose: 1 each Documented by: Timolol Maleate (Timolol Maleate 0.5% Ophth Soln 5 Ml Bottle) 0 ml EYEBOTH BID [facility] Last Admin: 09/19/21 08:18 Dose: 1 drop Documented by: Discontinued Medications Acetaminophen (Acetaminophen 325 Mg Tab) 650 mg PO Q4H PRN PRN Reason: Pain (Mild 1-3)/fever Acetaminophen (Acetaminophen 325 Mg Tab) 650 mg PO Q4H PRN PRN Reason: Pain/Fever Sodium Chloride (Normal Saline) 1,000 mls @ 999 mls/hr IV .BOLUS ONE Stop: 09/17/21 13:29 Last Admin: 09/17/21 19:19 Dose: Not Given Documented by: Iopamidol (Iopamidol 755 Mg/Ml 200 Ml Bottle) 200 ml IV ONETIME ONE Stop: 09/18/21 09:20 Last Admin: 09/18/21 09:53 Dose: 150 ml Documented by: Morphine Sulfate (Morphine 2 Mg/Ml Syringe) 1 mg IVPUSH ONETIME ONE Stop: 09/18/21 07:44 Last Admin: 09/18/21 07:52 Dose: 1 mg Documented by: Morphine Sulfate (Morphine 2 Mg/Ml Syringe) 1 mg IVPUSH ONETIME ONE Stop: 09/18/21 18:11 Last Admin: 09/18/21 20:27 Dose: 1 mg Documented by: Morphine Sulfate (Morphine 2 Mg/Ml Syringe) Confirm Administered Dose 2 mg .ROUTE .STK-MED ONE Stop: 09/18/21 20:52 Last Admin: 09/18/21 20:37 Dose: Not Given Documented by: Refresh Eye Drops * (Pt Own Med*) 0 each EYEBOTH BID [facility] Last Admin: 09/18/21 19:27 Dose: Not Given Documented by: Slow Magnesium Chloride With Calcium *Pt Own Med* 0 each PO TID [facility] Last Admin: 09/18/21 19:27 Dose: Not Given Documented by:
== END 2021-09-19 13:20 | disposition home or self-care (01) | DRG 637 ==
LOC: CC.FCMC 11:26 → CC.MS 11:43 → UNDOADMIN 11:43 → CC.MS 11:52
PROVIDERS: ADMIT Family Medicine; ATTEND Family Medicine
DX: E11.621 Type 2 diabetes mellitus with foot ulcer (principal); L89.153 Pressure ulcer of sacral region, stage 3; L97.518 Non-pressure chronic ulcer of other part of right foot with other specified severity; I95.9 Hypotension, unspecified; R79.89 Other specified abnormal findings of blood chemistry; R53.1 Weakness; H54.40 Blindness, one eye, unspecified eye; E78.00 Pure hypercholesterolemia, unspecified; F41.9 Anxiety disorder, unspecified; E86.0 Dehydration; D72.829 Elevated white blood cell count, unspecified; E11.51 Type 2 diabetes mellitus with diabetic peripheral angiopathy without gangrene; Z79.84 Long term (current) use of oral hypoglycemic drugs; Z79.899 Other long term (current) drug therapy; Z86.73 Personal history of transient ischemic attack (TIA), and cerebral infarction without residual deficits; Z90.49 Acquired absence of other specified parts of digestive tract
CPT/HCPCS: 36415; 73620-RT; 75635; 80053; 81003; 82947; 83735; 85025; 85651; 86140; 87070; 87186; 94640; A9270-GY; J0696; J2270; J7030; Q9967